=== PATIENT | female | born 1935 | race Caucasian/White ===

== ENCOUNTER → 2017-01-12 | Outpatient (CLI) | payer MEDICARE, BC ==
[2017-01-12 19:47] LABS: MEAN CORPUSCULAR HGB CONC 31.3 g/dl (32.0-36.5); RED CELL DISTRIBUTION WIDTH 17.2 % (11.5-14.5); WHITE BLOOD COUNT 7.7 10^3/uL (4.0-10.0)
[2017-01-12 20:06] LABS: ALBUMIN 3.7 GM/DL (3.2-5.2); ALBUMIN/GLOBULIN RATIO 1.23 (1.00-1.93); BILIRUBIN,TOTAL 0.3 MG/DL (0.2-1.0); CALCIUM LEVEL 9.3 MG/DL (8.8-10.2); CREATININE FOR GFR 1.17 MG/DL (0.55-1.02); GLOMERULAR FILTRATION RATE 47.3 (>32); TOTAL PROTEIN 6.7 GM/DL (6.4-8.2)
[2017-01-12 20:33] LABS: POTASSIUM SERUM 5.5 MEQ/L (3.5-5.1)
== END ==
LOC: M WUC 18:15
PROVIDERS: ATTEND Family Medicine
DX: M06.89 Other specified rheumatoid arthritis, multiple sites (principal)

== ENCOUNTER → 2017-07-08 | Outpatient (CLI) | payer MEDICARE, BC ==
[2017-07-08 17:01] LABS: HEMOGLOBIN 10.9 g/dl (12.0-15.5); MEAN CORPUSCULAR HEMOGLOBIN 29.6 pg (27.0-33.0); MEAN CORPUSCULAR HGB CONC 30.3 g/dl (32.0-36.5); MEAN CORPUSCULAR VOLUME 97.8 fl (80.0-96.0); PLATELET COUNT, AUTOMATED 224 10^3/uL (150-450); RED BLOOD COUNT 3.68 10^6/uL (4.00-5.40); RED CELL DISTRIBUTION WIDTH 17.7 % (11.5-14.5)
[2017-07-08 17:17] LABS: ALBUMIN 3.7 GM/DL (3.2-5.2); ALBUMIN/GLOBULIN RATIO 1.12 (1.00-1.93); ALKALINE PHOSPHATASE 123 U/L (45-117); ALT/SGPT 25 U/L (12-78); ANION GAP 6 MEQ/L (8-16); AST/SGOT 32 U/L (7-37); BILIRUBIN,TOTAL 0.3 MG/DL (0.2-1.0); BLOOD UREA NITROGEN 40 MG/DL (7-18); CALCIUM LEVEL 9.3 MG/DL (8.8-10.2); CARBON DIOXIDE LEVEL 27 MEQ/L (21-32); CHLORIDE LEVEL 110 MEQ/L (98-107); GLOMERULAR FILTRATION RATE 45.9 (>32); GLUCOSE, FASTING 119 MG/DL (70-100); SODIUM LEVEL 143 MEQ/L (136-145)
[2017-07-08 17:24] LABS: POTASSIUM SERUM 5.3 MEQ/L (3.5-5.1)
[2017-07-10 09:51] LABS: TOTAL 25(OH) VITAMIN D 58.7 NG/ML (30.0-100.0)
== END ==
LOC: M WUC 15:03
DX: N18.3 Chronic kidney disease, stage 3 (moderate) (principal)
CPT/HCPCS: 80053

== ENCOUNTER → 2018-01-09 | Outpatient (CLI) | payer MEDICARE, BC ==
[2018-01-09 12:34] LABS: HEMATOCRIT 37.1 % (36.0-47.0); HEMOGLOBIN 11.5 g/dl (12.0-15.5); MEAN CORPUSCULAR HEMOGLOBIN 30.4 pg (27.0-33.0); MEAN CORPUSCULAR VOLUME 98.1 fl (80.0-96.0); PLATELET COUNT, AUTOMATED 297 10^3/uL (150-450); RED BLOOD COUNT 3.78 10^6/uL (4.00-5.40); RED CELL DISTRIBUTION WIDTH 17.1 % (11.5-14.5); RETIC HEMOGLOBIN EQUIVALENT 38.4 pg (24-36); RETICULOCYTE # 35.9 10^9/L (17-77); WHITE BLOOD COUNT 5.9 10^3/uL (4.0-10.0)
[2018-01-09 12:53] LABS: ALBUMIN 3.8 GM/DL (3.2-5.2); ALBUMIN/GLOBULIN RATIO 1.09 (1.00-1.93); ALKALINE PHOSPHATASE 100 U/L (45-117); ALT/SGPT 18 U/L (12-78); ANION GAP 11 MEQ/L (8-16); AST/SGOT 23 U/L (7-37); BILIRUBIN,TOTAL 0.4 MG/DL (0.2-1.0); BLOOD UREA NITROGEN 31 MG/DL (7-18); CALCIUM LEVEL 9.2 MG/DL (8.8-10.2); CARBON DIOXIDE LEVEL 25 MEQ/L (21-32); CHLORIDE LEVEL 104 MEQ/L (98-107); CHOLESTEROL LEVEL 177 MG/DL (<200); CHOLESTEROL RISK RATIO 3.612 (<5); CREATININE FOR GFR 1.03 MG/DL (0.55-1.30); FERRITIN 350 NG/ML (8-252); GLOMERULAR FILTRATION RATE 54.6 (>32); GLUCOSE, FASTING 107 MG/DL (70-100); HDL CHOLESTEROL 49 MG/DL (>40); IRON (FE) 33 UG/DL (50-170); LDL CHOLESTEROL 104 MG/DL (<100); NON-HDL-C 128 MG/DL; PERCENT SATURATION 11.7 % (13.2-45.0); POTASSIUM SERUM 4.8 MEQ/L (3.5-5.1); SODIUM LEVEL 140 MEQ/L (136-145); TOTAL IRON BINDING CAPACITY 283 UG/DL (250-450); TOTAL PROTEIN 7.3 GM/DL (6.4-8.2); TRIGLYCERIDES LEVEL 120 MG/DL (<150)
== END ==
LOC: M WUC 09:11
DX: I10 Essential (primary) hypertension (principal); D63.8 Anemia in other chronic diseases classified elsewhere
CPT/HCPCS: 83550

== ENCOUNTER → 2018-02-23 | Outpatient (CLI) | payer MEDICARE, BC | LOC: M PAIN 13:00 | DX: M79.18 Myalgia, other site (principal); M54.6 Pain in thoracic spine; M47.814 Spondylosis without myelopathy or radiculopathy, thoracic region; T14.8XXA Other injury of unspecified body region, initial encounter; M06.9 Rheumatoid arthritis, unspecified; M81.0 Age-related osteoporosis without current pathological fracture; I10 Essential (primary) hypertension; K21.9 Gastro-esophageal reflux disease without esophagitis; D63.8 Anemia in other chronic diseases classified elsewhere; R73.03 Prediabetes; Z96.643 Presence of artificial hip joint, bilateral; Z96.652 Presence of left artificial knee joint; Z79.1 Long term (current) use of non-steroidal anti-inflammatories (NSAID); Z79.899 Other long term (current) drug therapy; Z88.1 Allergy status to other antibiotic agents; Z88.2 Allergy status to sulfonamides; Z88.8 Allergy status to other drugs, medicaments and biological substances; X58.XXXA Exposure to other specified factors, initial encounter; Y92.9 Unspecified place or not applicable | CPT/HCPCS: G0463 ==

== ENCOUNTER → 2018-03-09 | Outpatient (CLI) | payer MEDICARE, BC ==
[~2018-03-09] MED LIST: BUPIVACAINE HCL 0.25% 30 ML VIAL As Ordered; TRIAMCINOLONE ACETONIDE SUSP 40 MG/ML VIAL (J3301) As Ordered
== END ==
LOC: M PAIN 14:15
DX: M79.18 Myalgia, other site (principal); M54.6 Pain in thoracic spine; I10 Essential (primary) hypertension; K21.9 Gastro-esophageal reflux disease without esophagitis; E55.9 Vitamin D deficiency, unspecified; D64.9 Anemia, unspecified; M81.0 Age-related osteoporosis without current pathological fracture; M06.9 Rheumatoid arthritis, unspecified; Z79.82 Long term (current) use of aspirin; Z79.899 Other long term (current) drug therapy; Z88.2 Allergy status to sulfonamides; Z88.5 Allergy status to narcotic agent; Z88.8 Allergy status to other drugs, medicaments and biological substances; Z96.643 Presence of artificial hip joint, bilateral; Z96.652 Presence of left artificial knee joint
CPT/HCPCS: J3301

== ENCOUNTER → 2018-08-22 | Outpatient (CLI) | payer MEDICARE, BC ==
--- NOTE | 2018-08-22 12:07 | REP ---
Bilateral lower extremity arterial Doppler ultrasound: History: Peripheral vascular disease. Findings: The ankle brachial indices are normal at 0.98 on the right and 1.1 on the left. Extensive atherosclerotic changes are seen in the arteries of the lower extremities bilaterally. Reverse flow is seen in the distal anterior tibial artery on the left implying significant stenosis or occlusion. No other evidence of focal significant stenosis is seen. Velocity chart right lower extremity arteries: CF A 78 cm/S Profunda 59 Proximal SFA 70 Mid SFA 38 Distal SFA 38 Popliteal 39 Proximal AT A 16 Tibioperoneal trunk 29 Proximal CERTIFICATION OFFICER 30 Distal CERTIFICATION OFFICER 14 Distal AT A 31 Velocity chart left lower extremity arteries: CF A 104 cm/S Profunda 68 Proximal SFA 102 Mid SFA 68 Distal SFA 70 Popliteal 49 Proximal AT A 38 Tibioperoneal trunk 24 Proximal CERTIFICATION OFFICER 29 Distal CERTIFICATION OFFICER 37 Distal AT A 41 Electronically Signed by Juwan Medina MD 08/22/2018 11:59 A
== END ==
LOC: M RAD 09:20
PROVIDERS: ATTEND Surgery Vascular Surgery
DX: I73.9 Peripheral vascular disease, unspecified (principal); I87.2 Venous insufficiency (chronic) (peripheral); L89.619 Pressure ulcer of right heel, unspecified stage

== ENCOUNTER → 2018-08-24 | Outpatient (CLI) | payer MEDICARE, BC ==
--- NOTE | 2018-08-25 08:27 | REP ---
REASON: Venous insufficiency. DEEP VENOUS ULTRASONOGRAPHY THIGH, RULE OUT DVT: TECHNIQUE: Multiple ultrasonographic images of the deep venous structures of the thigh were obtained from the common femoral vein to the popliteal vein along with Doppler interrogation and color flow Doppler images. ON THE RIGHT: No reflux was seen in the common femoral vein. The anterior accessory greater saphenous vein was present, however, no reflux was identified. Reflux was seen in the greater saphenous vein at the saphenofemoral junction, the AP dimension of which is 2.3 mm and the duration 6.2 seconds. The greater saphenous vein and mid thigh reflux was noted, the AP dimension of which is 3.2 mm, duration of reflux 6.2 seconds. At the knee, reflux was seen in the greater saphenous vein, the AP dimension is 2.6 mm, duration 7.3 seconds. No reflux was seen in the superficial femoral vein, any of the three components and no reflux was seen in the popliteal vein or lesser saphenous vein, the AP dimension of which is 1.6 mm. ON THE LEFT: No reflux was seen in the common femoral vein. An anterior accessory greater saphenous vein was not present. The greater saphenous vein at the saphenofemoral junction was seen without reflux, the AP dimension of which is 4.1 mm. No reflux was seen in the greater saphenous vein at mid thigh, the AP dimension of which is 3.2 mm. The greater saphenous vein at the knee is seen without reflux, the AP dimension of which is 3.4 mm. No reflux was seen at any one of the three components of the superficial femoral vein. No reflux was seen in the popliteal vein or lesser saphenous vein, the AP dimension of which is 1.2 mm. IMPRESSION: As above. Electronically Signed by Jay Sanchez DO 08/25/2018 08:34 A
== END ==
LOC: M RAD 17:15
PROVIDERS: ATTEND Surgery Vascular Surgery
DX: I73.9 Peripheral vascular disease, unspecified (principal); I87.2 Venous insufficiency (chronic) (peripheral); L89.619 Pressure ulcer of right heel, unspecified stage

== ENCOUNTER → 2019-01-09 | Outpatient (CLI) | payer MEDICARE, BC ==
--- NOTE | 2019-01-11 00:01 | ECWPNPC ---
PATIENT NAME: BIANKA GALLAGHER : 1935 GENDER: FEMALE VISIT DATE: 01/09/2019 DISCHARGE DATE: 01/09/19 1244 VISIT LOCKED DATE TIME: PHYSICIAN: ADAL SHAFFER PHYSICIAN PAGER NO: [phone] RESOURCE: ADAL SHAFFER REASON FOR APPOINTMENT 1. POST TPI HISTORY OF PRESENT ILLNESS HISTORY OF PRESENT ILLNESS: PAIN THE PATIENT DESCRIBES THE PAIN... 83-YEAR-OLD FEMALE IN FOR CHRONIC PAIN FOLLOW-UP. SHE HAD A TPI DONE IN FEBRUARY OF LAST YEAR AND SHE STATES THIS WAS INEFFECTIVE IN RELIEVING HER PAIN. SHE RATES HER PAIN CURRENTLY AT A 9-10 OUT OF 10 WHEN WALKING AND A 0 OUT OF 10 AT REST SHE DESCRIBES THE PAIN ACHING, AND SORE. FALL RISK SCREENING: SCREENING :NO FALLS REPORTED IN THE LAST YEAR CURRENT MEDICATIONS TAKING VITAMIN B COMPLEX 1 TABLET 1 TABLET ORALLY DAILY TAKING VITAMIN D 2000 UNIT TABLET 1 TABLET ORALLY DAILY TAKING ASPIRIN 325 MG TABLET DELAYED RELEASE 1 TABLET EC ORALLY ONCE A DAY TAKING FERROUS GLUCONATE 325 (36 FE) MG TABLET 1 TABLET ORALLY ONCE A DAY TAKING MELOXICAM 15 MG TABLET 1 TABLET ORALLY ONCE A DAY TAKING OMEPRAZOLE 40 MG CAPSULE DELAYED RELEASE 1 CAPSULE ORALLY ONCE A DAY TAKING FOLIC ACID 1000 MG TABLET 1 TABLET ORALLY DAILY TAKING ACCUPRIL 40 MG TABLET TAKE ONE TABLET BY MOUTH EVERY DAY TAKING PERCOCET 5-325 MG TABLET 1 TABLET NEEDED ORALLY EVERY 4 - 6 HOURS NEEDED FOR PAIN MDD = 4 TAKING METHOTREXATE 2.5 MG TABLET 7 TABLETS ORALLY ONCE A WEEK NOT-TAKING LUMBAR BACK BRACE/SUPPORT PAD _ MISCELLANEOUS 733.13 _ DAILY DISCONTINUED METHOTREXATE 2.5 TABLET 7 TABLETS ORALLY ONCE A WEEK, NOTES: DUPLICATE MEDICATION LIST REVIEWED AND RECONCILED WITH THE PATIENT PAST MEDICAL HISTORY RA OSTEOPOROSIS--TOOK FOSAMAX/ACTONEL FOR 10+ YRS, DECLINES FURTHER DEXAS OR TX HYPERTENSION ESOPHAGEAL REFLUX BACK PAIN/DDD L/S SPINE, THORACIC SPINE XRAYS 2011, 2013 VITAMIN D DEFICIENCY + ANTICARDIOLIPIN AB R HUMERUS FX 08/14 KIDNEY STONE DIVERTICULITIS T12 COMPRESSION FX 12/22 BONE SCAN ANEMIA CHRONIC DISEASE--IRON STUDIES DONE 02/24, 01/25 PREDIABETES (01/25) SLIGHT DECREASE BLOOD FLOW IN LOWER EXTREMITIES OPEN WOUND RIGHT HEEL ALLERGIES VANCOMYCIN: PRURITIS - ALLERGY SULFA: DO NOT TAKE WHILE ON METHOTREXATE - CONTRAINDICATION LIDODERM: DIDN'T WORK - LACK OF THERAPEUTIC EFFECT SURGICAL HISTORY NO PERSONAL OR FHX OF SEVERE REACTION TO ANESTHESIA ESWL LEFT KIDNEY 11/21 TOES ON BILATERAL FEET 10/1983 LEFT HIP REPLACEMENT 12/1983 RIGHT HIP REPLACEMENT 05/1984 LEFT KNEE REPLACEMENT 1993 REMOVAL OF INFECTED KNEE REPLACEMENT- LEFT 2002 LEFT KNEE REPLACEMENT 2003 FAMILY HISTORY FATHER: , IN 80 MOTHER: 69 YRS, DIABETES, TYPE II, [place], DIAGNOSED WITH DIABETES, UNSPECIFIED HEART DISEASE SIBLINGS: BROTHER #1 HYPERTENSION, [place] AT 55 BROTHER #2 DM, KIDNEY FAILURE SON(S): SON # 1 DUE TO AUTO ACCIDENT SON # 2 DUE TO COMPLICATIONS OF DM 2 BROTHER(S) . 4 SON(S) , 1 DAUGHTER(S) . NO RA, NO KNOWN FAMILY HISTORY OF ANY UROLOGICALLY RELATED DISEASES\\/CANCERS. \\N2 BROTHERS .\\N2 SONS , 1 CAR ACCIDENT, 1 DIABETES\\NONE SON WITH A BLOOD CLOT IN HIS BRAIN. SOCIAL HISTORY GENERAL: TOBACCO USE ARE YOU A:: NEVER SMOKER. HIV / HEP-C SCREENING HIV TEST OFFERED TO PATIENT:YES DATE OFFERED:01/12/2018 TEST ACCEPTED:NO HEP-C TEST OFFERED TO PATIENT:YES DATE OFFERED:01/12/2018 REASON:PATIENT DECLINED TEST ACCEPTED:NO REASON:PATIENT DECLINED BROCHURE PROVIDED TO PATIENTYES OTHERS AT HOME: NONE. EDUCATION LEVEL OF EDUCATION:FINISHED HIGH SCHOOL DIET: REGULAR. LANGUAGE LANGUAGES SPOKEN:SURINAMESE DOMESTIC VIOLENCE DO YOU FEEL SAFE IN YOUR ENVIRONMENT?YES RECREATIONAL DRUG USE DRUG USE?NO EXERCISE: NO REGULAR EXERCISE. 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 NEEDED?NO PAIN CLINIC PFS, CLERGY, PUBLIC HEALTH REFERRALS HAS THE PATIENT BEEN EDUCATED REGARDING HIS/HER PLAN OF CARE?YES HAS THE PATIENT BEEN EDUCATED REGARDING PAIN, THE RISK FOR PAIN, THE IMPORTANCE OF EFFECTIVE PAIN MANAGEMENT, AND THE PAIN ASSESSMENT PROCESS?YES LATEX QUESTIONNAIRE LATEX ALLERGY : HAVE YOU EVER DEVELOPED ANY TYPE OF REACTION AFTER HANDLING LATEX PRODUCTS SUCH RUBBER GLOVES, CONDOMS, DIAPHRAGMS, BALLOONS, SOCKS, OR UNDERWEAR?NO LATEX ALLERGY : HAVE YOU EVER DEVELOPED ANY TYPE OF REACTION DURING OR AFTER DENTAL APPOINTMENT, VAGINAL/RECTAL EXAMINATION, SURGICAL PROCEDURE, OR ANY OTHER EXPOSURE?NO LATEX RISK : HAVE YOU EVER HAD ANY DIFFICULTY BREATHING OR HIVES AFTER EATING OR HANDLING ANY FRUITS, OR VEGETABLES; SUCH KIWI, BANANAS, STONE FRUITS, OR CHESTNUTSNO LATEX RISK : DO YOU HAVE A PREVIOUS PERSONAL HISTORY OF MORE THAN NINE SURGERIES, SPINA BIFIDA, OR REPEATED CATHERIZATIONS? YES - PLEASE INDICATE : > 9 SURGERIES LATEX RISK : ARE YOU FREQUENTLY EXPOSED TO LATEX PRODUCTS IN YOUR OCCUPATION?NO DATE ASKED : 01/09/2019 CAFFEINE CAFFEINE USE?YES HOW OFTEN AND HOW MUCH? OCC ADVANCE DIRECTIVE ADVANCE DIRECTIVE DISCUSSED WITH PATIENT:YES 01/09/19PT HAS NO ADVANCED DIRECTIVES, DECLINED HCP INFORMATION OR ASSISTANCE IN FILLING HCP OUT AD [place] NO AMISH BELIEFS THAT WOULD IMPACT HEALTH CARE. MARITAL STATUS: . ALCOHOL SCREENING POINTS: 0, INTERPRETATION: NEGATIVE. OCCUPATION: RETIRED. SEXUAL HX HAD SEX IN THE LAST 12 MONTHS (VAGINAL, ORAL, OR ANAL)?NO HAVE YOU EVER HAD AN STD?NO REVIEWED WITH PATIENT 02/23/18 1338 JSREVIEWED WITH PATIENT 03/09/18 1437 LAS. HOSPITALIZATION/MAJOR DIAGNOSTIC PROCEDURE SURGERY RELATED CHILD REVIEW OF SYSTEMS REVIEWED BY: PROVIDER: RICARDO CAMPA . CONSTITUTIONAL: ANY CHANGE IN YOUR MEDICAL CONDITION? NO . CHILLS NO . FEVER NO . INFECTION: DO YOU HAVE NEW INFECTIONS? NO . DO YOU HAVE HISTORY OF MRSA? NO . MUSCULOSKELETAL: ANY NEW PATTERNS OF PAIN OR NUMBNESS? NO . GASTROENTEROLOGY: ANY NEW CHANGE IN BOWEL CONTROL? NO . GENITOURINARY: ANY NEW CHANGE IN BLADDER CONTROL? NO . IS THERE A CHANCE YOU COULD BE ? NO . HEMATOLOGY/LYMPH: DO YOU TAKE ANY BLOOD THINNERS? (FOR EXAMPLE- COUMADIN, PLAVIX, AGGRENOX, PLATEL, PRADAXA, OR XARELTO) NO . WHEN WAS YOUR LAST DOSE? DATE: TIME: . NEUROLOGY: HAVE YOU FALLEN IN THE PAST 12 MONTHS? NO . ANY NEW EXTREMITY NUMBNESS OR WEAKNESS? NO . CARDIOLOGY: DO YOU HAVE A PACEMAKER OR DEFIBRILLATOR? NO . RESPIRATORY: HAVE YOU BEEN SICK IN THE PAST WEEK? NO . FEVER NO . FLU LIKE SYMPTOMS? NO . COUGH NO . INTEGUMENTARY: DO YOU HAVE ANY RASHES OR OPEN SORES? NO . ALLERGIC/IMMUNO: ARE YOU ALLERGIC TO IV DYE? NO . ANY NEW ALLERGIES? NO . PSYCHIATRIC: DO YOU HAVE THOUGHTS OF HURTING YOURSELF OR SOMEONE ELSE? NO . ARE YOU ABUSED, NEGLECTED, OR IN AN UNSAFE ENVIRONMENT? NO . ENDOCRINOLOGY: ARE YOU DIABETIC? NO . OTHER: DO YOU NEED ANY PRESCRIPTIONS? NO . IF YES, PLEASE LIST: ____ . ANY NEW PROBLEMS WITH YOUR MEDICATIONS? NO . WHEN DID YOU LAST EAT? ____ . WHEN DID YOU LAST DRINK? ____ . WHAT DID YOU LAST DRINK? ____ . NAME OF PERSON DRIVING YOU HOME? ____ . DO YOU HAVE ANY OTHER QUESTIONS OR CONCERNS YES, "DOES MY BACK PAIN HAVE ANYTHING TO DO WITH MY KIDNEYS?" . VITAL SIGNS WT 90.6 LBS, HT 59 IN, BMI 18.30 INDEX, BP 157/98 MM HG, REPEAT BP 136/67 MM HG, HR 91 /MIN, RR 16 /MIN, TEMP 98.0 F, OXYGEN SAT % 99%, SAFE IN ENV? (Y/N) Y, NA INITIALS SC 12:01, REVIEWED BY: OMAR. EXAMINATION GENERAL EXAMINATION: GENERALNO ACUTE DISTRESS, WELL NOURISHED AND HYDRATED. PSYCHAPPROPRIATE MOOD AND AFFECT . LUNGS:CLEAR TO AUSCULTATION BILATERALLY, NO WHEEZES, RHONCHI, RALES. HEART:NO MURMURS, REGULAR RATE AND RHYTHM. 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 GIVEN PRESENTING SYMPTOMS AND RESULTS OF PHYSICAL EXAMINATION RECOMMENDED GETTING AN UPDATED IMAGING STUDY AND HAVING PATIENT FOLLOW UP AFTER STUDY. PATIENT HAS EXPRESSED UNDERSTANDING OF AND WAS IN AGREEMENT WITH TREATMENT PLAN. GIVEN TIME TO ASK QUESTIONS AND EXPRESS CONCERNS. PROCEDURE CODES FA211 ESTABILISHED PATIENT [facility] FAC[facility] CHARGE DISPOSITION & COMMUNICATION FOLLOW UP AFTER IMAGING (REASON: MRI) ELECTRONICALLY SIGNED BY BERRY SOLIZ ON 01/10/2019 AT 09:16 AM EDT DISCLAIMER : THIS IS A VISIT SUMMARY EXTRACTED FROM THE [employer] CHART. IT IS NOT A COPY OF THE [employer] PROGRESS NOTE. HALEY
== END ==
LOC: M PAIN 11:15
PROVIDERS: ATTEND Family Medicine
DX: M47.814 Spondylosis without myelopathy or radiculopathy, thoracic region (principal); G89.29 Other chronic pain; M06.9 Rheumatoid arthritis, unspecified; I10 Essential (primary) hypertension; K21.9 Gastro-esophageal reflux disease without esophagitis; E55.9 Vitamin D deficiency, unspecified; D50.9 Iron deficiency anemia, unspecified; Z96.643 Presence of artificial hip joint, bilateral; Z96.652 Presence of left artificial knee joint; Z88.1 Allergy status to other antibiotic agents; Z88.2 Allergy status to sulfonamides; Z88.8 Allergy status to other drugs, medicaments and biological substances; Z79.82 Long term (current) use of aspirin; Z79.899 Other long term (current) drug therapy

== ENCOUNTER → 2019-01-14 | Outpatient (CLI) | payer MEDICARE, BC ==
--- NOTE | 2019-01-15 08:38 | REP ---
MRI thoracic spine without contrast: History: Right-sided thoracic spine pain. History rheumatoid arthritis longstanding. Facet arthropathy. Comparison thoracic spine radiographs February 07, 2014. Technique: Sagittal and axial T1 and T2-weighted scans are acquired in the usual fashion with and without fat saturation. Sequences include spin echo, turbo spin-echo, and STIR imaging sequences. MRI findings: There are multiple osteoporotic wedge compression fracture deformities which all appear old by virtue of normal STIR T1 and T2 signal intensity. These include wedge-shaped compression deformities at T10, T12, L1, and L2. There is minimal wedging at T9. Thoracic kyphosis is somewhat exaggerated. No acute fracture is appreciated. At T12, there is approximately 50% loss of anterior vertebral body height. There is mild retropulsion of the posterior cortex superiorly at the T12 vertebral body. This it is approximately 4 mm and effaces the ventral subarachnoid space. There is slight dorsal displacement of the lower thoracic cord here due to the retropulsion and some associated diffuse disc bulging. There is facet hypertrophy bilaterally at T11-12 and some associated ligamentum flavum hypertrophy effaces the subarachnoid space from the dorsal lateral aspect producing central canal stenosis at the T11-12 level. There is similar less pronounced findings at the T10-11 with diffuse disc bulging and facet and ligamentum flavum hypertrophy. There is diffuse disc bulging at T12-L1 as well without cord compression. At L1-L2, there is marked facet hypertrophy on the left at L1-2 which encroaches on the spinal canal from the left lateral aspect. No intramedullary lesion is seen. The tip of the conus medullaris is at this level. There is left foraminal narrowing at the L1-L2 and T12-L1 levels. There is no evidence of epidural fluid collection. There are several other small of thoracic focal disc protrusions including a right posterior protrusion at T9-10, a right paracentral T8-9 focal disc protrusion, and a small left posterior focal disc protrusion at T6-7. Impression: Advanced degenerative spondylosis changes with areas of facet hypertrophy and foraminal narrowing. Osteoporotic wedge compression deformities at multiple levels as above. Central canal stenosis is seen due to these factors at T11-12. There is diffuse disc bulging at multiple disc levels as well. Electronically Signed by Juwan Medina MD 01/15/2019 09:27 A
== END ==
LOC: M RAD 18:24
PROVIDERS: ATTEND Family Medicine
DX: M47.814 Spondylosis without myelopathy or radiculopathy, thoracic region (principal)

== ENCOUNTER → 2019-01-23 | Outpatient (CLI) | payer MEDICARE, BC ==
--- NOTE | 2019-01-28 13:17 | ECWPNPC ---
PATIENT NAME: BIANKA GALLAGHER : 1935 GENDER: FEMALE VISIT DATE: 01/23/2019 DISCHARGE DATE: 01/23/19 1156 VISIT LOCKED DATE TIME: PHYSICIAN: ADAL SHAFFER PHYSICIAN PAGER NO: [phone] RESOURCE: ADAL SHAFFER REASON FOR APPOINTMENT 1. REVIEW MRI HISTORY OF PRESENT ILLNESS HISTORY OF PRESENT ILLNESS: PAIN THE PATIENT DESCRIBES THE PAIN... 83-YEAR-OLD FEMALE IN FOR CHRONIC PAIN AND POST MRI FOLLOW-UP. SHE ADMITS TO PAIN ONLY WHEN WALKING AND DESCRIBES HER PAIN ACHING. FALL RISK SCREENING: SCREENING :NO FALLS REPORTED IN THE LAST YEAR CURRENT MEDICATIONS TAKING VITAMIN B COMPLEX 1 TABLET 1 TABLET ORALLY DAILY TAKING VITAMIN D 2000 UNIT TABLET 1 TABLET ORALLY DAILY TAKING ASPIRIN 325 MG TABLET DELAYED RELEASE 1 TABLET EC ORALLY ONCE A DAY TAKING MELOXICAM 15 MG TABLET 1 TABLET ORALLY ONCE A DAY TAKING OMEPRAZOLE 40 MG CAPSULE DELAYED RELEASE 1 CAPSULE ORALLY ONCE A DAY TAKING FOLIC ACID 1000 MG TABLET 1 TABLET ORALLY DAILY TAKING ACCUPRIL 40 MG TABLET TAKE ONE TABLET BY MOUTH EVERY DAY TAKING METHOTREXATE 2.5 MG TABLET 7 TABLETS ORALLY ONCE A WEEK TAKING PERCOCET 5-325 MG TABLET 1 TABLET NEEDED ORALLY EVERY 4 - 6 HOURS NEEDED FOR PAIN MDD = 4 TAKING FERROUS SULFATE 325 MG CAPSULE DIRECTED ORALLY NOT-TAKING LUMBAR BACK BRACE/SUPPORT PAD _ MISCELLANEOUS 733.13 _ DAILY MEDICATION LIST REVIEWED AND RECONCILED WITH THE PATIENT PAST MEDICAL HISTORY RA OSTEOPOROSIS--TOOK FOSAMAX/ACTONEL FOR 10+ YRS, DECLINES FURTHER DEXAS OR TX HYPERTENSION ESOPHAGEAL REFLUX BACK PAIN/DDD L/S SPINE, THORACIC SPINE XRAYS 2011, 2013 VITAMIN D DEFICIENCY + ANTICARDIOLIPIN AB R HUMERUS FX 08/14 KIDNEY STONE DIVERTICULITIS T12 COMPRESSION FX 12/22 BONE SCAN ANEMIA CHRONIC DISEASE--IRON STUDIES DONE 02/24, 01/25 PREDIABETES (01/25) SLIGHT DECREASE BLOOD FLOW IN LOWER EXTREMITIES OPEN WOUND RIGHT HEEL ALLERGIES VANCOMYCIN: PRURITIS - ALLERGY SULFA: DO NOT TAKE WHILE ON METHOTREXATE - CONTRAINDICATION LIDODERM: DIDN'T WORK - LACK OF THERAPEUTIC EFFECT SURGICAL HISTORY NO PERSONAL OR FHX OF SEVERE REACTION TO ANESTHESIA ESWL LEFT KIDNEY 11/21 TOES ON BILATERAL FEET 10/1983 LEFT HIP REPLACEMENT 12/1983 RIGHT HIP REPLACEMENT 05/1984 LEFT KNEE REPLACEMENT 1993 REMOVAL OF INFECTED KNEE REPLACEMENT- LEFT 2002 LEFT KNEE REPLACEMENT 2003 FAMILY HISTORY FATHER: , IN 80 MOTHER: 69 YRS, DIABETES, TYPE II, [place], DIAGNOSED WITH DIABETES, UNSPECIFIED HEART DISEASE SIBLINGS: BROTHER #1 HYPERTENSION, [place] AT 55 BROTHER #2 DM, KIDNEY FAILURE SON(S): SON # 1 DUE TO AUTO ACCIDENT SON # 2 DUE TO COMPLICATIONS OF DM 2 BROTHER(S) . 4 SON(S) , 1 DAUGHTER(S) . NO RA, NO KNOWN FAMILY HISTORY OF ANY UROLOGICALLY RELATED DISEASES\/CANCERS. \N2 BROTHERS .\N2 SONS , 1 CAR ACCIDENT, 1 DIABETES\NONE SON WITH A BLOOD CLOT IN HIS BRAIN. SOCIAL HISTORY GENERAL: TOBACCO USE ARE YOU A:: NEVER SMOKER. HIV / HEP-C SCREENING HIV TEST OFFERED TO PATIENT:YES DATE OFFERED:01/12/2018 TEST ACCEPTED:NO HEP-C TEST OFFERED TO PATIENT:YES DATE OFFERED:01/12/2018 REASON:PATIENT DECLINED TEST ACCEPTED:NO REASON:PATIENT DECLINED BROCHURE PROVIDED TO PATIENTYES OTHERS AT HOME: NONE. EDUCATION LEVEL OF EDUCATION:FINISHED HIGH SCHOOL DIET: REGULAR. LANGUAGE LANGUAGES SPOKEN:VIETNAMESE DOMESTIC VIOLENCE DO YOU FEEL SAFE IN YOUR ENVIRONMENT?YES RECREATIONAL DRUG USE DRUG USE?NO EXERCISE: NO REGULAR EXERCISE. 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?NO PAIN CLINIC PFS, CLERGY, PUBLIC HEALTH REFERRALS HAS THE PATIENT BEEN EDUCATED REGARDING HIS/HER PLAN OF CARE?YES HAS THE PATIENT BEEN EDUCATED REGARDING PAIN, THE RISK FOR PAIN, THE IMPORTANCE OF EFFECTIVE PAIN MANAGEMENT, AND THE PAIN ASSESSMENT PROCESS?YES LATEX QUESTIONNAIRE LATEX ALLERGY : HAVE YOU EVER DEVELOPED ANY TYPE OF REACTION AFTER HANDLING LATEX PRODUCTS SUCH RUBBER GLOVES, CONDOMS, DIAPHRAGMS, BALLOONS, SOCKS, OR UNDERWEAR?NO LATEX ALLERGY : HAVE YOU EVER DEVELOPED ANY TYPE OF REACTION DURING OR AFTER DENTAL APPOINTMENT, VAGINAL/RECTAL EXAMINATION, SURGICAL PROCEDURE, OR ANY OTHER EXPOSURE?NO DATE ASKED : 01/09/2019 LATEX RISK : HAVE YOU EVER HAD ANY DIFFICULTY BREATHING OR HIVES AFTER EATING OR HANDLING ANY FRUITS, OR VEGETABLES; SUCH KIWI, BANANAS, STONE FRUITS, OR CHESTNUTSNO LATEX RISK : DO YOU HAVE A PREVIOUS PERSONAL HISTORY OF MORE THAN NINE SURGERIES, SPINA BIFIDA, OR REPEATED CATHERIZATIONS? YES - PLEASE INDICATE : > 9 SURGERIES LATEX RISK : ARE YOU FREQUENTLY EXPOSED TO LATEX PRODUCTS IN YOUR OCCUPATION?NO CAFFEINE CAFFEINE USE?YES HOW OFTEN AND HOW MUCH? OCC ADVANCE DIRECTIVE ADVANCE DIRECTIVE DISCUSSED WITH PATIENT:YES 01/09/19PT HAS NO ADVANCED DIRECTIVES, DECLINED HCP INFORMATION OR ASSISTANCE IN FILLING HCP OUT AD [place] NO MOSQUE BELIEFS THAT WOULD IMPACT HEALTH CARE. MARITAL STATUS: . ALCOHOL SCREENING POINTS: 0, INTERPRETATION: NEGATIVE. OCCUPATION: RETIRED. SEXUAL HX HAD SEX IN THE LAST 12 MONTHS (VAGINAL, ORAL, OR ANAL)?NO HAVE YOU EVER HAD AN STD?NO REVIEWED WITH PATIENT 02/23/18 1338 JSREVIEWED WITH PATIENT 03/09/18 1437 LASREVIEWED WITH PATIENT 01/23/19 1106 NLJ. HOSPITALIZATION/MAJOR DIAGNOSTIC PROCEDURE SURGERY RELATED CHILD REVIEW OF SYSTEMS REVIEWED BY: PROVIDER: RICARDO SMART-C . CONSTITUTIONAL: ANY CHANGE IN YOUR MEDICAL CONDITION? NO . CHILLS NO . FEVER NO . INFECTION: DO YOU HAVE NEW INFECTIONS? NO . DO YOU HAVE HISTORY OF MRSA? NO . MUSCULOSKELETAL: ANY NEW PATTERNS OF PAIN OR NUMBNESS? NO- STATES THAT WHEN SHE IS SITTING SHE HAS NO PAIN, STATES IT INCREASES WHEN SHE STANDS UP AND WALKS AROUND . GASTROENTEROLOGY: ANY NEW CHANGE IN BOWEL CONTROL? NO . GENITOURINARY: ANY NEW CHANGE IN BLADDER CONTROL? NO . IS THERE A CHANCE YOU COULD BE ? NO . HEMATOLOGY/LYMPH: DO YOU TAKE ANY BLOOD THINNERS? (FOR EXAMPLE- COUMADIN, PLAVIX, AGGRENOX, PLATEL, PRADAXA, OR XARELTO) YES- ASPIRIN . WHEN WAS YOUR LAST DOSE? DATE:01/23/19 TIME: AM . NEUROLOGY: HAVE YOU FALLEN IN THE PAST 12 MONTHS? NO . ANY NEW EXTREMITY NUMBNESS OR WEAKNESS? NO . CARDIOLOGY: DO YOU HAVE A PACEMAKER OR DEFIBRILLATOR? NO . RESPIRATORY: HAVE YOU BEEN SICK IN THE PAST WEEK? NO . FEVER NO . FLU LIKE SYMPTOMS? NO . COUGH NO . INTEGUMENTARY: DO YOU HAVE ANY RASHES OR OPEN SORES? NO . ALLERGIC/IMMUNO: ARE YOU ALLERGIC TO IV DYE? NO . ANY NEW ALLERGIES? NO . PSYCHIATRIC: DO YOU HAVE THOUGHTS OF HURTING YOURSELF OR SOMEONE ELSE? NO . ARE YOU ABUSED, NEGLECTED, OR IN AN UNSAFE ENVIRONMENT? NO . ENDOCRINOLOGY: ARE YOU DIABETIC? NO . OTHER: DO YOU NEED ANY PRESCRIPTIONS? YES . IF YES, PLEASE LIST: ____OXYCODONE . ANY NEW PROBLEMS WITH YOUR MEDICATIONS? NO . WHEN DID YOU LAST EAT? ____ . WHEN DID YOU LAST DRINK? ____ . WHAT DID YOU LAST DRINK? ____ . NAME OF PERSON DRIVING YOU HOME? ____ . DO YOU HAVE ANY OTHER QUESTIONS OR CONCERNS NO . VITAL SIGNS WT 91.8 LBS, HT 59 IN, BMI 18.54 INDEX, BP 137/64 MM HG, HR 91 /MIN, RR 16 /MIN, TEMP 98.1 F, OXYGEN SAT % 100%, SAFE IN ENV? (Y/N) YES, NA INITIALS AW 1113, REVIEWED BY: OUMAR. EXAMINATION GENERAL EXAMINATION: GENERALNO ACUTE DISTRESS, WELL NOURISHED AND HYDRATED. PSYCHAPPROPRIATE MOOD AND AFFECT . LUNGS:CLEAR TO AUSCULTATION BILATERALLY, NO WHEEZES, RHONCHI, RALES. HEART:NO MURMURS, REGULAR RATE AND RHYTHM. BACK:POINT TENDER LUMBAR SPINE, SURROUNDING SKIN SHOWS NO ERYTHEMA, ECCHYMOSIS, INCREASED WARMTH, AND/OR SKIN ERUPTIONS NOTED. . 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 CLINICAL NOTES: 83-YEAR-OLD FEMALE IN FOR CHRONIC PAIN FOLLOW-UP. GIVEN PRESENTING SYMPTOMS, RESULTS OF PHYSICAL EXAMINATION, AND RESULTS OF MRI RECOMMENDED THERAPEUTIC FACET BLOCK T11-T12 T12-L1 WITH POSTPROCEDURAL FOLLOW-UP. PATIENT HAS EXPRESSED UNDERSTANDING OF AND WAS IN AGREEMENT WITH TREATMENT PLAN. GIVEN TIME TO ASK QUESTIONS AND EXPRESS CONCERNS. OTHERS NOTES: FACET JOINT INJECTION MATERIAL WAS PRINTED AND REVIEWED WITH PATIENT 01/23/19 1145 OUMAR. PROCEDURE CODES FA211 ESTABILISHED PATIENT [facility] FACILITY CHARGE DISPOSITION & COMMUNICATION FOLLOW UP POST PROCEDURE (REASON: THERAPEUTIC THORACIC FACET BLOCK T11-T12 T12-L1) ELECTRONICALLY SIGNED BY BERRY SOLIZ ON 01/24/2019 AT 09:53 AM EDT DISCLAIMER : THIS IS A VISIT SUMMARY EXTRACTED FROM THE [employer] CHART. IT IS NOT A COPY OF THE [employer] PROGRESS NOTE. MTDD
== END ==
LOC: M PAIN 11:00
PROVIDERS: ATTEND Family Medicine
DX: M47.814 Spondylosis without myelopathy or radiculopathy, thoracic region (principal); G89.29 Other chronic pain; M06.9 Rheumatoid arthritis, unspecified; M81.0 Age-related osteoporosis without current pathological fracture; I10 Essential (primary) hypertension; K21.9 Gastro-esophageal reflux disease without esophagitis; E55.9 Vitamin D deficiency, unspecified; D50.9 Iron deficiency anemia, unspecified; R73.03 Prediabetes; Z96.643 Presence of artificial hip joint, bilateral; Z96.652 Presence of left artificial knee joint; Z88.1 Allergy status to other antibiotic agents; Z88.2 Allergy status to sulfonamides; Z88.4 Allergy status to anesthetic agent; Z79.82 Long term (current) use of aspirin; Z79.899 Other long term (current) drug therapy

== ENCOUNTER → 2019-02-03 | Outpatient (CLI) | payer MEDICARE, BC ==
[2019-02-03 17:36] LABS: BASO % 0.4 % (0.0-1.0); EOS # 0.1 10^3/uL (0.0-0.5); EOS % 1.9 % (0.0-3.0); HEMATOCRIT 39.5 % (36.0-47.0); LYMPH # 0.8 10^3/uL (1.5-5.0); LYMPH % 10.1 % (24.0-44.0); MEAN CORPUSCULAR HEMOGLOBIN 31.3 pg (27.0-33.0); MEAN CORPUSCULAR HGB CONC 30.4 g/dl (32.0-36.5); MEAN CORPUSCULAR VOLUME 102.9 fl (80.0-96.0); MONO # 0.4 10^3/uL (0.0-0.8); MONO % 5.9 % (0.0-5.0); NEUTROPHILS # 6.1 10^3/uL (1.5-8.5); NEUTROPHILS % 81.4 % (36.0-66.0); PLATELET COUNT, AUTOMATED 332 10^3/uL (150-450); RED BLOOD COUNT 3.84 10^6/uL (4.00-5.40); WHITE BLOOD COUNT 7.5 10^3/uL (4.0-10.0)
[2019-02-03 17:50] LABS: ALBUMIN 3.9 GM/DL (3.2-5.2); BILIRUBIN,TOTAL 0.4 MG/DL (0.2-1.0); CALCIUM LEVEL 9.5 MG/DL (8.8-10.2); CHOLESTEROL RISK RATIO 2.885 (<5); CREATININE FOR GFR 1.09 MG/DL (0.55-1.30); FREE T4 0.95 NG/DL (0.76-1.46); POTASSIUM SERUM 4.6 MEQ/L (3.5-5.1); THYROID STIMULATING HORMONE 8.62 uIU/ML (0.358-3.740); TOTAL PROTEIN 7.4 GM/DL (6.4-8.2)
== END ==
LOC: M WUC 10:40
PROVIDERS: ATTEND Family Medicine
DX: N18.3 Chronic kidney disease, stage 3 (moderate) (principal); D63.1 Anemia in chronic kidney disease; I12.9 Hypertensive chronic kidney disease with stage 1 through stage 4 chronic kidney disease, or unspecified chronic kidney disease; E78.5 Hyperlipidemia, unspecified

== ENCOUNTER → 2019-02-21 | Outpatient (CLI) | payer MEDICARE, BC ==
[~2019-02-21] MED LIST changes: -BUPIVACAINE HCL 0.25% 30 ML VIAL As Ordered; +BUPIVACAINE HCL 0.25% 30 ML VIAL As Ordered ONE; +ISOVUE-M 300 61% 15ML VIAL (Q9967) As Ordered ONE; +LIDOCAINE 1% SDV INJ 30 ML VIAL As Ordered ONE; -TRIAMCINOLONE ACETONIDE SUSP 40 MG/ML VIAL (J3301) As Ordered; +TRIAMCINOLONE ACETONIDE SUSP 40 MG/ML VIAL (J3301) As Ordered ONE
--- NOTE | 2019-02-21 16:03 | REP ---
Thoracic spine: Single view. History: Right thoracic facet injections for pain. 14 seconds fluoroscopy time is reported. Findings: A single last image hold fluoroscopically obtained spot radiograph of the thoracic spine documents various needle positions and contrast injections associated with injection procedure. Electronically Signed by Juwan Medina MD 02/21/2019 03:53 P
--- NOTE | 2019-02-21 16:30 | REP ---
Chest x-ray: Three views including inspiration expiration PA views and a lateral view. History: Status post thoracic facet block procedure. Findings: Inspiration and expiration views show no evidence of pneumothorax. No hydrothorax is seen. There is a dextroconvex lower thoracic curve unchanged. Heart size is unchanged. Thoracic aorta is tortuous and calcific. There are degenerative disc changes in the thoracic spine and osteoporotic wedge compression deformities are seen in the lower thoracic spine and upper lumbar spine. These appear to be unchanged from November 07, 2013. Impression: No pneumothorax or hydrothorax seen. Scoliosis and thoracic wedge compression deformities. Electronically Signed by Juwan Medina MD 02/21/2019 05:24 P
--- NOTE | 2019-03-01 00:56 | ECWPNPC ---
PATIENT NAME: BIANKA GALLAGHER : 1935 GENDER: FEMALE VISIT DATE: 02/21/2019 DISCHARGE DATE: 02/21/191648 VISIT LOCKED DATE TIME: PHYSICIAN: AURELIANO FIELDS MD PHYSICIAN PAGER NO: [phone] RESOURCE: AURELIANO FIELDS MD REASON FOR APPOINTMENT 1. RIGHT THERAPEUTIC THORACIC FACET BLOCK HISTORY OF PRESENT ILLNESS HISTORY OF PRESENT ILLNESS: PAIN THE PATIENT DESCRIBES THE PAIN... FALL RISK SCREENING: SCREENING :NO FALLS REPORTED IN THE LAST YEAR CURRENT MEDICATIONS TAKING VITAMIN B COMPLEX 1 TABLET 1 TABLET ORALLY DAILY, NOTES: 02-20-19 TAKING VITAMIN D 2000 UNIT TABLET 1 TABLET ORALLY DAILY, NOTES: 02-20-19 1100 TAKING ASPIRIN 325 MG TABLET DELAYED RELEASE 1 TABLET EC ORALLY ONCE A DAY, NOTES: 02-21-19 08 TAKING MELOXICAM 15 MG TABLET 1 TABLET ORALLY ONCE A DAY, NOTES: 02-21-19799 TAKING OMEPRAZOLE 40 MG CAPSULE DELAYED RELEASE 1 CAPSULE ORALLY ONCE A DAY, NOTES: 02-21-19899 TAKING FOLIC ACID 1000 MG TABLET 1 TABLET ORALLY DAILY, NOTES: 02-20-19799 TAKING ACCUPRIL 40 MG TABLET TAKE ONE TABLET BY MOUTH EVERY DAY , NOTES: 02-21-19799 TAKING METHOTREXATE 2.5 MG TABLET 7 TABLETS ORALLY ONCE A WEEK, NOTES: 2 WEEKS AGO TAKING FERROUS SULFATE 325 MG CAPSULE DIRECTED ORALLY , NOTES: 02-20-19799 TAKING LEVOTHYROXINE SODIUM 25 MCG TABLET 1 TABLET IN THE MORNING ON AN EMPTY STOMACH ORALLY ONCE A DAY, NOTES: 02-21-19799 TAKING PERCOCET 5-325 MG TABLET 1 TABLET NEEDED ORALLY EVERY 4 - 6 HOURS NEEDED FOR PAIN MDD = 4, NOTES: 02-20-19 09 NOT-TAKING LUMBAR BACK BRACE/SUPPORT PAD _ MISCELLANEOUS 733.13 _ DAILY MEDICATION LIST REVIEWED AND RECONCILED WITH THE PATIENT PAST MEDICAL HISTORY RA OSTEOPOROSIS--TOOK FOSAMAX/ACTONEL FOR 10+ YRS, DECLINES FURTHER DEXAS OR TX HYPERTENSION ESOPHAGEAL REFLUX BACK PAIN/DDD L/S SPINE, THORACIC SPINE XRAYS 2011, 2013 VITAMIN D DEFICIENCY + ANTICARDIOLIPIN AB R HUMERUS FX 08/14 KIDNEY STONE DIVERTICULITIS T12 COMPRESSION FX 12/22 BONE SCAN ANEMIA CHRONIC DISEASE--IRON STUDIES DONE 02/24, 01/25 PREDIABETES (01/25) PAD MILD HYPOTHYROIDISM ALLERGIES VANCOMYCIN: PRURITIS - ALLERGY SULFA: DO NOT TAKE WHILE ON METHOTREXATE - CONTRAINDICATION LIDODERM: DIDN'T WORK - LACK OF THERAPEUTIC EFFECT VANCOMYCIN HCL: PRURITITS - ALLERGY SULFA (FOR ALLERGY USE ONLY): DO NOT TAKE WHILE ON METHOTREXATE - CONTRAINDICATION LIDODERM: DID NOT WORK - LACK OF THERAPEUTIC EFFECT - ONSET DATE 02/21/2019 SURGICAL HISTORY NO PERSONAL OR FHX OF SEVERE REACTION TO ANESTHESIA ESWL LEFT KIDNEY 11/21 TOES ON BILATERAL FEET 10/1983 LEFT HIP REPLACEMENT 12/1983 RIGHT HIP REPLACEMENT 05/1984 LEFT KNEE REPLACEMENT 1993 REMOVAL OF INFECTED KNEE REPLACEMENT- LEFT 2002 LEFT KNEE REPLACEMENT 2003 FAMILY HISTORY FATHER: , IN 80 MOTHER: 69 YRS, DIABETES, TYPE II, [place], DIAGNOSED WITH DIABETES, UNSPECIFIED HEART DISEASE SIBLINGS: BROTHER #1 HYPERTENSION, [place] AT 55 BROTHER #2 DM, KIDNEY FAILURE SON(S): SON # 1 DUE TO AUTO ACCIDENT SON # 2 DUE TO COMPLICATIONS OF DM DAUGHTER(S): HYPOTHYROIDISM 2 BROTHER(S) . 4 SON(S) , 1 DAUGHTER(S) . NO RA, NO KNOWN FAMILY HISTORY OF ANY UROLOGICALLY RELATED DISEASES\/CANCERS. \N2 BROTHERS .\N2 SONS , 1 CAR ACCIDENT, 1 DIABETES\NONE SON WITH A BLOOD CLOT IN HIS BRAIN. SOCIAL HISTORY GENERAL: TOBACCO USE ARE YOU A:: NEVER SMOKER. HIV / HEP-C SCREENING HIV TEST OFFERED TO PATIENT:YES DATE OFFERED:01/12/2018 TEST ACCEPTED:NO HEP-C TEST OFFERED TO PATIENT:YES DATE OFFERED:01/12/2018 REASON:PATIENT DECLINED TEST ACCEPTED:NO REASON:PATIENT DECLINED BROCHURE PROVIDED TO PATIENTYES OTHERS AT HOME: NONE. EDUCATION LEVEL OF EDUCATION:FINISHED HIGH SCHOOL DIET: REGULAR. LANGUAGE LANGUAGES SPOKEN:[place]ISTANI DOMESTIC VIOLENCE DO YOU FEEL SAFE IN YOUR ENVIRONMENT?YES RECREATIONAL DRUG USE DRUG USE?NO EXERCISE: NO REGULAR EXERCISE. 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 CLINIC PFS, CLERGY, PUBLIC HEALTH REFERRALS HAS THE PATIENT BEEN EDUCATED REGARDING HIS/HER PLAN OF CARE?YES HAS THE PATIENT BEEN EDUCATED REGARDING PAIN, THE RISK FOR PAIN, THE IMPORTANCE OF EFFECTIVE PAIN MANAGEMENT, AND THE PAIN ASSESSMENT PROCESS?YES LATEX QUESTIONNAIRE LATEX ALLERGY : HAVE YOU EVER DEVELOPED ANY TYPE OF REACTION AFTER HANDLING LATEX PRODUCTS SUCH RUBBER GLOVES, CONDOMS, DIAPHRAGMS, BALLOONS, SOCKS, OR UNDERWEAR?NO LATEX ALLERGY : HAVE YOU EVER DEVELOPED ANY TYPE OF REACTION DURING OR AFTER DENTAL APPOINTMENT, VAGINAL/RECTAL EXAMINATION, SURGICAL PROCEDURE, OR ANY OTHER EXPOSURE?NO DATE ASKED : 01/09/2019 LATEX RISK : HAVE YOU EVER HAD ANY DIFFICULTY BREATHING OR HIVES AFTER EATING OR HANDLING ANY FRUITS, OR VEGETABLES; SUCH KIWI, BANANAS, STONE FRUITS, OR CHESTNUTSNO LATEX RISK : DO YOU HAVE A PREVIOUS PERSONAL HISTORY OF MORE THAN NINE SURGERIES, SPINA BIFIDA, OR REPEATED CATHERIZATIONS? YES - PLEASE INDICATE : > 9 SURGERIES LATEX RISK : ARE YOU FREQUENTLY EXPOSED TO LATEX PRODUCTS IN YOUR OCCUPATION?NO CAFFEINE CAFFEINE USE?YES HOW OFTEN AND HOW MUCH? OCC ADVANCE DIRECTIVE ADVANCE DIRECTIVE DISCUSSED WITH PATIENT:YES 01/09/19PT HAS NO ADVANCED DIRECTIVES, DECLINED HCP INFORMATION OR ASSISTANCE IN FILLING HCP OUT AD [facility] NO [facility] BELIEFS THAT WOULD IMPACT HEALTH CARE. MARITAL STATUS: . ALCOHOL SCREENING POINTS: 0, INTERPRETATION: NEGATIVE. OCCUPATION: RETIRED. SEXUAL HX HAD SEX IN THE LAST 12 MONTHS (VAGINAL, ORAL, OR ANAL)?NO HAVE YOU EVER HAD AN STD?NO REVIEWED WITH PATIENT 02/23/18 1338 JSREVIEWED WITH PATIENT 03/09/18 1437 LASREVIEWED WITH PATIENT 01/23/19 1106 NLJ. HOSPITALIZATION/MAJOR DIAGNOSTIC PROCEDURE SURGERY RELATED CHILD REVIEW OF SYSTEMS REVIEWED BY: PROVIDER: . CONSTITUTIONAL: ANY CHANGE IN YOUR MEDICAL CONDITION? HYPOTHYROID . CHILLS NO . FEVER NO . INFECTION: DO YOU HAVE NEW INFECTIONS? NO . DO YOU HAVE HISTORY OF MRSA? NO . MUSCULOSKELETAL: ANY NEW PATTERNS OF PAIN OR NUMBNESS? NO . GASTROENTEROLOGY: ANY NEW CHANGE IN BOWEL CONTROL? NO . GENITOURINARY: ANY NEW CHANGE IN BLADDER CONTROL? NO . IS THERE A CHANCE YOU COULD BE ? NO . HEMATOLOGY/LYMPH: DO YOU TAKE ANY BLOOD THINNERS? (FOR EXAMPLE- COUMADIN, PLAVIX, AGGRENOX, PLATEL, PRADAXA, OR XARELTO) NO . WHEN WAS YOUR LAST DOSE? DATE: TIME: . NEUROLOGY: HAVE YOU FALLEN IN THE PAST 12 MONTHS? NO . ANY NEW EXTREMITY NUMBNESS OR WEAKNESS? NO . CARDIOLOGY: DO YOU HAVE A PACEMAKER OR DEFIBRILLATOR? NO . RESPIRATORY: HAVE YOU BEEN SICK IN THE PAST WEEK? NO . FEVER NO . FLU LIKE SYMPTOMS? NO . COUGH NO . INTEGUMENTARY: DO YOU HAVE ANY RASHES OR OPEN SORES? NO . ALLERGIC/IMMUNO: ARE YOU ALLERGIC TO IV DYE? NO . ANY NEW ALLERGIES? NO . PSYCHIATRIC: DO YOU HAVE THOUGHTS OF HURTING YOURSELF OR SOMEONE ELSE? NO . ARE YOU ABUSED, NEGLECTED, OR IN AN UNSAFE ENVIRONMENT? NO . ENDOCRINOLOGY: ARE YOU DIABETIC? NO . OTHER: DO YOU NEED ANY PRESCRIPTIONS? NO . IF YES, PLEASE LIST: ____ . ANY NEW PROBLEMS WITH YOUR MEDICATIONS? NO . WHEN DID YOU LAST EAT? ____[phone] . WHEN DID YOU LAST DRINK? ____05-24-42 11 . WHAT DID YOU LAST DRINK? ____7 UP . NAME OF PERSON DRIVING YOU HOME? ____ . DO YOU HAVE ANY OTHER QUESTIONS OR CONCERNS NO . VITAL SIGNS WT 91.4 LBS, HT 59 IN, BMI 18.46 INDEX, BP 174/81 MM HG, HR 75 /MIN, RR 16 /MIN, TEMP 98.5 F, OXYGEN SAT % 98%, NA INITIALS SC 14:09. 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 AURELIANO FIELDS CAR MANAGER NONE ANESTHESIA LOCAL PRE PROCEDURE NOTE THE PATIENT WITH HISTORY OF CHRONIC THORACIC PAIN. I EVALUATED THE PATIENT AND REVIEWED THE CHART. I WENT OVER THE RISKS, ALTERNATIVES, AND BENEFITS ASSOCIATED WITH THIS PROCEDURE. THE PATIENT WOULD LIKE TO PROCEED AND GAVE CONSENT TO PERFORM THE PROCEDURE. THE PATIENT DENIES UNEXPLAINABLE WEIGHT LOSS, FEVER, CHILLS, OR NEW CHANGES IN URINARY OR BOWEL CONTROL. DESCRIPTION OF PROCEDURE THE PATIENT WAS BROUGHT TO THE PROCEDURE ROOM AND PLACED IN THE PRONE POSITION. THE THORACIC AREA WAS CLEANED WITH CHLORAPREP SOLUTION AND DRAPED ASEPTICALLY. THE PROCEDURE WAS DONE UNDER STERILE CONDITIONS. I CHECKED LATERALITY AND THE LEVEL WHERE THE PROCEDURE WAS GOING TO BE PERFORMED WITH THE PATIENT AND THE SUPPORTING STAFF AT THE MOMENT OF THE TIME OUT IN THE PROCEDURE ROOM. UNDER FLUOROSCOPIC GUIDANCE, THE TARGET POINT WAS SELECTED AT THE RIGHT T8-T9, RIGHT T9-T10, RIGHT T10-T11, AND RIGHT T11-T12 THORACIC FACETS. TARGET POINT WAS SELECTED AFTER LATERAL ROTATION AND TILT OF THE MAGNIFIER OF THE C-ARM. LIDOCAINE 0.5% WAS USED TO NUMB THE SKIN AND THE SUBCUTANEOUS TISSUE BELOW IT. SPINAL NEEDLES, 22-GAUGE, WERE ADVANCED UNDER FLUOROSCOPIC GUIDANCE AND FOLLOWING PATIENT FEEDBACK UNTIL THE TARGETS WERE TOUCHED. THE POSITION OF THE NEEDLES WAS VERIFIED WITH MULTIPLE X-RAY VIEWS. AFTER PROPER POSITION OF THE NEEDLES WAS ACHIEVED, ISOVUE-M DYE 30% 0.1 ML WAS INJECTED SHOWING ADEQUATE SPREAD OF THE DYE. THEN A SOLUTION OF 0.9 ML OF BUPIVACAINE 0.125% OF KENALOG 10 MG WAS INJECTED AT EACH SITE. THERE WAS NO EVIDENCE OF BLOOD, PARESTHESIA OR CEREBROSPINAL FLUID DURING THE PROCEDURE. THE PATIENT WAS SENT TO THE RECOVERY ROOM. THE PATIENT WAS MOVING THE EXTREMITIES AND DOING WELL. THERE WAS NO COMPLICATION DURING THE PROCEDURE. FLUOROSCOPY TIME WAS 14 SECONDS POST PROCEDURE NOTE THE PATIENT WILL BE SEEN IN A FOLLOW UP IN THE NEXT FEW WEEKS. INSTRUCTIONS WERE GIVEN, QUESTIONS WERE ANSWERED, AND THE PATIENT EXPRESSED UNDERSTANDING AND AGREED WITH THE PLAN. I, JEM LOPES, DOCUMENTED THE ABOVE INFORMATION ACTING A SCRIBE FOR DR. FIELDS. I HAVE REVIEWED THE ABOVE DOCUMENT, WRITTEN BY JEM SEXTON AND I VERIFY THAT IT IS ACCURATE. PROCEDURE CODES [id number] INJ PARAVERT F JNT C/T 1 LEV, [place]IF[place]ERS: [place] [address] INJ PARAVERT F JNT C/T 2 LEV, MODIFIERS: [place] [address]677 INJ PARAVERT F JNT C/T 3 LEV, MODIFIERS: RT [id number] RADXPS IN END [id number] PXD DISPOSITION & COMMUNICATION FOLLOW UP 3 WEEKS ELECTRONICALLY SIGNED BY AURELIANO FIELDS MD, ON 02/28/2019 AT 02:08 PM EST DISCLAIMER : THIS IS A VISIT SUMMARY EXTRACTED FROM THE [employer] CHART. IT IS NOT A COPY OF THE [employer] PROGRESS NOTE. MTDD
== END ==
LOC: M PAIN 13:45
PROVIDERS: ATTEND Anesthesiology
DX: M47.814 Spondylosis without myelopathy or radiculopathy, thoracic region (principal)
CPT/HCPCS: 64490; 64491; 64492; 71046; J3301; Q9967

== ENCOUNTER → 2019-05-03 | Outpatient (CLI) | payer MEDICARE, BC ==
[2019-05-03 14:36] LABS: FREE T4 1.08 NG/DL (0.76-1.46); THYROID STIMULATING HORMONE 3.55 uIU/ML (0.358-3.740)
== END ==
LOC: M WUC 12:03
PROVIDERS: ATTEND Family Medicine
DX: E03.9 Hypothyroidism, unspecified (principal)

== ENCOUNTER → 2020-02-15 | Outpatient (CLI) | payer MEDICARE, BC ==
[2020-02-15 11:05] LABS: HEMATOCRIT 35.7 % (36.0-47.0); HEMOGLOBIN 10.7 g/dl (12.0-15.5); MEAN CORPUSCULAR HEMOGLOBIN 30.2 pg (27.0-33.0); MEAN CORPUSCULAR VOLUME 100.8 fl (80.0-96.0); PLATELET COUNT, AUTOMATED 247 10^3/uL (150-450); RED BLOOD COUNT 3.54 10^6/uL (4.00-5.40); WHITE BLOOD COUNT 5.9 10^3/uL (4.0-10.0)
[2020-02-15 11:29] LABS: ALBUMIN 3.5 GM/DL (3.2-5.2); BILIRUBIN,TOTAL 0.4 MG/DL (0.2-1.0); CALCIUM LEVEL 9.2 MG/DL (8.8-10.2); CHOLESTEROL RISK RATIO 3.203 (<5); CREATININE FOR GFR 0.98 MG/DL (0.55-1.30); FREE T4 1.14 NG/DL (0.76-1.46); GLOMERULAR FILTRATION RATE 57.6 (>32); THYROID STIMULATING HORMONE 4.11 uIU/ML (0.358-3.740); TOTAL PROTEIN 6.7 GM/DL (6.4-8.2)
== END ==
LOC: M LAB 10:14
PROVIDERS: ATTEND Family Medicine
DX: E78.5 Hyperlipidemia, unspecified (principal); I11.9 Hypertensive heart disease without heart failure

== ENCOUNTER → 2020-07-17 | Outpatient (REF) | payer MEDICARE, BC ==
[2020-07-17 17:54] LABS: APPEARANCE, URINE TURBID (CLEAR); BACTERIA, URINE AUTO NEGATIVE (NEGATIVE); BILIRUBIN, URINE AUTO NEGATIVE (NEGATIVE); BLOOD, URINE BLOOD 2+ (NEGATIVE); COLOR, URINE YELLOW (YELLOW); GLUCOSE, URINE (UA) AUTO NEGATIVE (NEGATIVE); KETONE, URINE AUTO TRACE mg/dL (NEGATIVE); LEUKOCYTE ESTERASE, URINE AUTO 3+ (NEGATIVE); NITRITE, URINE AUTO NEGATIVE (NEGATIVE); PROTEIN, URINE AUTO 2+ mg/dL (NEGATIVE); RBC, URINE AUTO 139 /HPF (0-3); SPECIFIC GRAVITY URINE AUTO 1.023 (1.002-1.035); SQUAMOUS EPITHELIAL CELL UR AU 0 /HPF (0-6); UROBILINOGEN, URINE AUTO 0.2 mg/dL (0.0-2.0); WBC, URINE AUTO TNTC /HPF (0-3)
== END ==
LOC: M SFHCADAM 16:54
PROVIDERS: ATTEND Family Medicine
DX: R30.0 Dysuria (principal)
CPT/HCPCS: 81001; 81002; 87088; 87186; G0463

== ENCOUNTER → 2021-02-20 | Outpatient (CLI) | payer MEDICARE, BC ==
[2021-02-20 14:32] LABS: HEMATOCRIT 34.1 % (36.0-47.0); HEMOGLOBIN 10.6 g/dl (12.0-15.5); MEAN CORPUSCULAR HEMOGLOBIN 31.1 pg (27.0-33.0); MEAN CORPUSCULAR HGB CONC 31.1 g/dl (32.0-36.5); PLATELET COUNT, AUTOMATED 259 10^3/uL (150-450); RED BLOOD COUNT 3.41 10^6/uL (4.00-5.40); WHITE BLOOD COUNT 8.4 10^3/uL (4.0-10.0)
[2021-02-20 15:05] LABS: ALBUMIN 3.4 GM/DL (3.2-5.2); BILIRUBIN,TOTAL 0.6 MG/DL (0.2-1.0); CALCIUM LEVEL 9.1 MG/DL (8.8-10.2); CREATININE FOR GFR 1.14 MG/DL (0.55-1.30); FREE T4 1.15 NG/DL (0.76-1.46); GLOMERULAR FILTRATION RATE 48.2 (>32); POTASSIUM SERUM 4.4 MEQ/L (3.5-5.1); THYROID STIMULATING HORMONE 4.03 uIU/ML (0.358-3.740); TOTAL PROTEIN 6.8 GM/DL (6.4-8.2)
== END ==
LOC: M LAB 14:07
PROVIDERS: ATTEND Family Medicine
DX: M06.89 Other specified rheumatoid arthritis, multiple sites (principal); E07.9 Disorder of thyroid, unspecified

== ENCOUNTER → 2021-08-21 | Outpatient (CLI) | payer MEDICARE, BC ==
[2021-08-21 15:19] LABS: HEMATOCRIT 33.6 % (36.0-47.0); HEMOGLOBIN 10.8 g/dl (12.0-15.5); MEAN CORPUSCULAR HEMOGLOBIN 32.8 pg (27.0-33.0); MEAN CORPUSCULAR HGB CONC 32.1 g/dl (32.0-36.5); MEAN CORPUSCULAR VOLUME 102.1 fl (80.0-96.0); PLATELET COUNT, AUTOMATED 264 10^3/uL (150-450); RED BLOOD COUNT 3.29 10^6/uL (4.00-5.40); WHITE BLOOD COUNT 9.1 10^3/uL (4.0-10.0)
[2021-08-21 15:34] LABS: HEMOGLOBIN A1c 5.2 %
[2021-08-21 15:58] LABS: ALBUMIN 3.5 GM/DL (3.2-5.2); BILIRUBIN,TOTAL 0.4 MG/DL (0.2-1.0); CALCIUM LEVEL 9.4 MG/DL (8.8-10.2); CREATININE FOR GFR 1.32 MG/DL (0.55-1.30); FREE T4 1.19 NG/DL (0.76-1.46); GLOMERULAR FILTRATION RATE 40.6 (>32); THYROID STIMULATING HORMONE 3.32 uIU/ML (0.358-3.740); TOTAL PROTEIN 6.8 GM/DL (6.4-8.2)
== END ==
LOC: M LAB 14:19
PROVIDERS: ATTEND Family Medicine
DX: E03.9 Hypothyroidism, unspecified (principal)

== ENCOUNTER 2021-09-02 12:14 | Inpatient (IN) | payer MEDICARE, BC ==
[~2021-09-02] VITALS: Ht 144.8 cm; Wt 42.0 kg
[2021-09-02 13:29] LABS: BASO % 0.2 % (0.0-1.0); EOS % 0.3 % (0.0-3.0); HEMATOCRIT 36.7 % (36.0-47.0); HEMOGLOBIN 11.7 g/dl (12.0-15.5); LYMPH # 0.5 10^3/uL (1.5-5.0); LYMPH % 5.3 % (24.0-44.0); MEAN CORPUSCULAR HEMOGLOBIN 32.5 pg (27.0-33.0); MEAN CORPUSCULAR HGB CONC 31.9 g/dl (32.0-36.5); MEAN CORPUSCULAR VOLUME 101.9 fl (80.0-96.0); MONO # 0.5 10^3/uL (0.0-0.8); MONO % 5.6 % (2.0-8.0); NEUTROPHILS # 8.4 10^3/uL (1.5-8.5); NEUTROPHILS % 88.3 % (36.0-66.0); PLATELET COUNT, AUTOMATED 223 10^3/uL (150-450); WHITE BLOOD COUNT 9.5 10^3/uL (4.0-10.0)
[2021-09-02 13:55] LABS: OSMOLALITY SERUM 285 MOSM/KG (280-301)
[2021-09-02 13:57] LABS: AMPHETAMINES LEVEL URINE NEGATIVE (NEGATIVE); BARBITURATES URINE NEGATIVE (NEGATIVE); BENZODIAZEPINES URINE NEGATIVE (NEGATIVE); CANNABINOIDS URINE NEGATIVE (NEGATIVE); CK-MB VALUE MASS 1.6 NG/ML (<3.6); COCAINE METABOLITE URINE NEGATIVE (NEGATIVE); MB/CK RELATIVE INDEX 2.62 (< OR =4); METHADONE URINE NEGATIVE (NEGATIVE); OPIATES URINE NEGATIVE (NEGATIVE); PHENCYCLIDINE URINE NEGATIVE (NEGATIVE)
[2021-09-02 14:05] LABS: ACETAMINOPHEN LEVEL 6.7 UG/ML (10.0-30.0); ALBUMIN 3.8 GM/DL (3.2-5.2); ALT/SGPT 17 U/L (12-78); BILIRUBIN,DIRECT 0.2 MG/DL (0.0-0.2); BILIRUBIN,TOTAL 0.5 MG/DL (0.2-1.0); BLOOD UREA NITROGEN 24 MG/DL (7-18); CALCIUM LEVEL 10.4 MG/DL (8.8-10.2); CARBON DIOXIDE LEVEL 27 MEQ/L (21-32); CHLORIDE LEVEL 103 MEQ/L (98-107); CREATININE FOR GFR 1.02 MG/DL (0.55-1.30); ETHYL ALCOHOL (ETHANOL) < 0.003 % (0.000-0.010); GLOMERULAR FILTRATION RATE 54.7 (>32); GLUCOSE, FASTING 106 MG/DL (70-100); POTASSIUM SERUM 4.7 MEQ/L (3.5-5.1); SALICYLATE LEVEL < 1.7 MG/DL (5.0-30.0); SODIUM LEVEL 138 MEQ/L (136-145); TOTAL PROTEIN 7.2 GM/DL (6.4-8.2)
[2021-09-02 14:37] LABS: RSV AMPLIFICATION NEGATIVE (NEGATIVE)
[2021-09-02] MEDS ORDERED: ACETAMINOPHEN TAB 650MG DOSE (2X325MG) PO PRN (16:20)
[2021-09-02] MEDS ORDERED: MOM 30ML SUSPENSION UDC PO PRN (16:20)
[2021-09-02] MEDS ORDERED: MAALOX 30 ML SUSP *UDC PO PRN (16:20)
[2021-09-02] MEDS ORDERED: ASPIRIN 325 MG TAB PO ONE (16:25)
[2021-09-02] MEDS ORDERED: LEVO50TA5 PO (16:52)
[2021-09-02] MEDS ORDERED: MELO15TA28 PO (16:52)
[2021-09-02] MEDS ORDERED: OMEP40CA5 PO (16:52)
[2021-09-02] MEDS ORDERED: METH2.5T48 PO (16:52)
[2021-09-02] MEDS ORDERED: LEVO25TA5 PO (16:52)
[2021-09-02] MEDS ORDERED: OXYC10TA3 PO (16:52)
[2021-09-02] MEDS ORDERED: QUIN40TA26 PO (16:52)
[2021-09-02] MEDS ORDERED: ASPI81TA26 PO (16:56)
[2021-09-02] MEDS ORDERED: FOLI400T13 PO (16:56)
[2021-09-02] MEDS ORDERED: TETR15DR2 OU (16:56)
[2021-09-02] MEDS ORDERED: ACET650T61 PO (16:56)
[2021-09-02] MEDS ORDERED: EQL50TAB2 PO (16:56)
[2021-09-02] MEDS ORDERED: HOME MED LIST COMPLETE! XX SCH (17:00)
[2021-09-02] MEDS ORDERED: hydrALAZINE 20MG/ML 1ML VIAL (J0360 PER 20MG) IV ONE (17:05)
[2021-09-02] MEDS ORDERED: oxyCODONE 5MG TAB PO PRN (17:20)
[2021-09-02] MEDS ORDERED: METHOTREXATE 2.5 MG TAB (J8610 PER 2.5MG) PO SCH (17:20)
[2021-09-02] MEDS ORDERED: TETRAHYDROZOLINE OPHTH 0.05% 15 ML BTL OU PRN (17:20)
[2021-09-02 17:35] LABS: CK-MB VALUE MASS 2.1 NG/ML (<3.6); MB/CK RELATIVE INDEX 4.04 (< OR =4)
[2021-09-02 20:26] VITALS: BP 178/84
[2021-09-02 20:59] LABS: CK-MB VALUE MASS 1.6 NG/ML (<3.6); MB/CK RELATIVE INDEX 3.14 (< OR =4)
[2021-09-02] MEDS ORDERED: ATORVASTATIN 20 MG TAB PO SCH (21:00)
[2021-09-02] MEDS: DOCUSATE SODIUM 100MG CAPSULE PO SCH (21:22)
[2021-09-03] VITALS (9 sets, daily range): BP systolic 143–172; BP diastolic 69–81
[2021-09-03 00:52] LABS: CK-MB VALUE MASS 1.5 NG/ML (<3.6); MB/CK RELATIVE INDEX 3.49 (< OR =4)
[2021-09-03] MEDS: hydrALAZINE 20MG/ML 1ML VIAL (J0360 PER 20MG) IV SCH ×2 (01:04→05:42)
[2021-09-03] MEDS ORDERED: LEVOTHYROXINE 50MCG TABLET (0.05MG) PO SCH (06:00)
[2021-09-03 06:11] LABS: BASO % 0.3 % (0.0-1.0); EOS # 0.1 10^3/uL (0.0-0.5); EOS % 1.7 % (0.0-3.0); HEMOGLOBIN 10.9 g/dl (12.0-15.5); LYMPH # 0.9 10^3/uL (1.5-5.0); LYMPH % 11.8 % (24.0-44.0); MEAN CORPUSCULAR HEMOGLOBIN 32.3 pg (27.0-33.0); MEAN CORPUSCULAR HGB CONC 32.1 g/dl (32.0-36.5); MEAN CORPUSCULAR VOLUME 100.9 fl (80.0-96.0); MONO # 0.6 10^3/uL (0.0-0.8); MONO % 8.3 % (2.0-8.0); NEUTROPHILS # 5.9 10^3/uL (1.5-8.5); NEUTROPHILS % 77.5 % (36.0-66.0); PLATELET COUNT, AUTOMATED 216 10^3/uL (150-450); RED BLOOD COUNT 3.37 10^6/uL (4.00-5.40); WHITE BLOOD COUNT 7.6 10^3/uL (4.0-10.0)
[2021-09-03 06:32] LABS: HEMOGLOBIN A1c 5.2 %
[2021-09-03 06:38] LABS: BLOOD UREA NITROGEN 19 MG/DL (7-18); CALCIUM LEVEL 9.7 MG/DL (8.8-10.2); CARBON DIOXIDE LEVEL 26 MEQ/L (21-32); CHLORIDE LEVEL 104 MEQ/L (98-107); CHOLESTEROL LEVEL 142 MG/DL (<200); CHOLESTEROL RISK RATIO 2.679 (<5); CREATININE FOR GFR 0.79 MG/DL (0.55-1.30); GLOMERULAR FILTRATION RATE > 60.0 (>32); GLUCOSE, FASTING 86 MG/DL (70-100); HDL CHOLESTEROL 53 MG/DL (>40); LDL CHOLESTEROL 73 MG/DL (<100); NON-HDL-C 89 MG/DL; POTASSIUM SERUM 4.2 MEQ/L (3.5-5.1); SODIUM LEVEL 138 MEQ/L (136-145); TRIGLYCERIDES LEVEL 78 MG/DL (<150)
[2021-09-03] MEDS ORDERED: ASPIRIN 325 MG TAB PO SCH (09:00)
[2021-09-03] MEDS ORDERED: ENOXAPARIN 30MG/0.3ML SYRINGE (J1650 PER 10MG) SC SCH (09:00)
[2021-09-03] MEDS ORDERED: QUINAPRIL 20 MG TAB PO SCH (09:00)
[2021-09-03] MEDS ORDERED: OMEPRAZOLE 20MG CAP PO SCH (09:00)
[2021-09-03] MEDS: DOCUSATE SODIUM 100MG CAPSULE PO SCH (09:31)
[2021-09-03] MEDS ORDERED: ASPI-1 PO (16:08)
[2021-09-03] MEDS ORDERED: ATOR1TAB21 PO (16:08)
[2021-09-03] MEDS ORDERED: ACCU1TAB2 PO (16:08)
[2021-09-03] MEDS ORDERED: ATORVASTATIN 20 MG TAB PO SCH (21:00)
== END 2021-09-03 16:31 | DRG 66 ==
LOC: M ED 12:14 → M ED INP 16:19 → ENRESERV 16:38 → M PCU 19:48
PROVIDERS: ADMIT Internal Medicine; ATTEND Internal Medicine Nephrology
DX: I63.59 Cerebral infarction due to unspecified occlusion or stenosis of other cerebral artery (principal); I10 Essential (primary) hypertension; E03.9 Hypothyroidism, unspecified; M06.9 Rheumatoid arthritis, unspecified; M81.0 Age-related osteoporosis without current pathological fracture; D64.9 Anemia, unspecified; I73.9 Peripheral vascular disease, unspecified; E55.9 Vitamin D deficiency, unspecified; K21.9 Gastro-esophageal reflux disease without esophagitis; Z96.643 Presence of artificial hip joint, bilateral; Z96.652 Presence of left artificial knee joint; Z79.82 Long term (current) use of aspirin; Z79.899 Other long term (current) drug therapy; Z88.1 Allergy status to other antibiotic agents; Z88.2 Allergy status to sulfonamides

== ENCOUNTER 2021-09-29 18:43 | Emergency (ER) | payer BC, MEDICARE ==
[~2021-09-29] VITALS: Ht 147.3 cm; Wt 42.0 kg
[~2021-09-29 18:43] MED LIST changes: +ACCU1TAB2 PO; +ACET650T61 PO; +ASPI-1 PO; +ASPI81TA26 PO; +ATOR1TAB21 PO; -BUPIVACAINE HCL 0.25% 30 ML VIAL As Ordered ONE; +EQL50TAB2 PO; +FOLI400T13 PO; +HYDR25TA PO; -ISOVUE-M 300 61% 15ML VIAL (Q9967) As Ordered ONE; +LEVO25TA5 PO; +LEVO50TA5 PO; -LIDOCAINE 1% SDV INJ 30 ML VIAL As Ordered ONE; +MELO15TA28 PO; +METH2.5T48 PO; +OMEP40CA5 PO; +OXYC10TA3 PO; +QUIN40TA26 PO; +TETR15DR2 OU; -TRIAMCINOLONE ACETONIDE SUSP 40 MG/ML VIAL (J3301) As Ordered ONE
[2021-09-29] MEDS ORDERED: SYST0.4D2 OP (18:58)
[2021-09-29] MEDS ORDERED: FERR1TAB8 PO (18:58)
[2021-09-29] MEDS ORDERED: VITA100093 PO (18:58)
[2021-09-29] MEDS ORDERED: COLA100C5 PO (18:58)
[2021-09-29 20:44] LABS: BASO % 0.2 % (0.0-1.0); EOS # 0.1 10^3/uL (0.0-0.5); EOS % 1.9 % (0.0-3.0); HEMOGLOBIN 9.3 g/dl (12.0-15.5); LYMPH # 0.7 10^3/uL (1.5-5.0); LYMPH % 12.2 % (24.0-44.0); MEAN CORPUSCULAR HEMOGLOBIN 32.5 pg (27.0-33.0); MEAN CORPUSCULAR HGB CONC 32.1 g/dl (32.0-36.5); MEAN CORPUSCULAR VOLUME 101.4 fl (80.0-96.0); MONO # 0.5 10^3/uL (0.0-0.8); MONO % 10.2 % (2.0-8.0); NEUTROPHILS % 75.3 % (36.0-66.0); PLATELET COUNT, AUTOMATED 223 10^3/uL (150-450); RED BLOOD COUNT 2.86 10^6/uL (4.00-5.40); WHITE BLOOD COUNT 5.3 10^3/uL (4.0-10.0)
[2021-09-29 21:11] LABS: ALBUMIN 3.2 GM/DL (3.2-5.2); BILIRUBIN,DIRECT 0.2 MG/DL (0.0-0.2); BILIRUBIN,TOTAL 0.2 MG/DL (0.2-1.0); CALCIUM LEVEL 9.3 MG/DL (8.8-10.2); TOTAL PROTEIN 6.2 GM/DL (6.4-8.2)
[2021-09-29 21:25] LABS: RSV AMPLIFICATION NEGATIVE (NEGATIVE)
[2021-09-29 22:15] VITALS: BP 166/81
[2021-09-29] MEDS ORDERED: BENZONATATE 100MG CAPSULE PO ONE (22:25)
[2021-09-29] MEDS ORDERED: GABAPENTIN 100 MG CAP PO ONE (22:25)
[2021-09-29] MEDS ORDERED: BENZ200C70 PO (22:27)
[2021-09-29] MEDS ORDERED: NEUR100C PO (22:27)
== END 2021-09-29 22:55 | disposition home or self-care (01) ==
LOC: M ED 18:43
DX: R05.9 Cough, unspecified (principal); R06.02 Shortness of breath; M79.671 Pain in right foot; I10 Essential (primary) hypertension; E78.5 Hyperlipidemia, unspecified; I69.851 Hemiplegia and hemiparesis following other cerebrovascular disease affecting right dominant side; M06.9 Rheumatoid arthritis, unspecified; Z87.442 Personal history of urinary calculi; Z88.1 Allergy status to other antibiotic agents; Z88.2 Allergy status to sulfonamides; Z79.899 Other long term (current) drug therapy; Z79.82 Long term (current) use of aspirin; Z79.890 Hormone replacement therapy

== ENCOUNTER → 2021-10-14 | Outpatient (CLI) | payer MEDICARE, BC ==
[~2021-10-14] MED LIST changes: +BENZ200C70 PO; +COLA100C5 PO; +FERR1TAB8 PO; +NEUR100C PO; +SYST0.4D2 OP; +VITA100093 PO
== END ==
LOC: M ADAMS 15:39
PROVIDERS: ATTEND Family Medicine
DX: R05.9 Cough, unspecified (principal); J91.8 Pleural effusion in other conditions classified elsewhere

== ENCOUNTER → 2021-10-14 | Outpatient (REF) | payer MEDICARE, BC ==
[2021-10-14 20:17] LABS: HEMATOCRIT 31.3 % (36.0-47.0); HEMOGLOBIN 9.8 g/dl (12.0-15.5); MEAN CORPUSCULAR HEMOGLOBIN 32.6 pg (27.0-33.0); MEAN CORPUSCULAR HGB CONC 31.3 g/dl (32.0-36.5); PLATELET COUNT, AUTOMATED 210 10^3/uL (150-450); RED BLOOD COUNT 3.01 10^6/uL (4.00-5.40); WHITE BLOOD COUNT 5.9 10^3/uL (4.0-10.0)
[2021-10-14 20:45] LABS: ALBUMIN 3.4 GM/DL (3.2-5.2); BILIRUBIN,TOTAL 0.4 MG/DL (0.2-1.0); C REACTIVE PROTEIN QUANTITATIV 1.13 MG/DL (0.00-0.30); CALCIUM LEVEL 8.9 MG/DL (8.8-10.2); CREATININE FOR GFR 1.02 MG/DL (0.55-1.30); FREE T4 1.23 NG/DL (0.76-1.46); GLOMERULAR FILTRATION RATE 54.7 (>32); PERCENT SATURATION 10.1 % (13.2-45.0); POTASSIUM SERUM 4.4 MEQ/L (3.5-5.1); THYROID STIMULATING HORMONE 2.51 uIU/ML (0.358-3.740); TOTAL 25(OH) VITAMIN D 77.5 NG/ML (30.0-100.0); TOTAL PROTEIN 6.4 GM/DL (6.4-8.2)
== END ==
LOC: M SFHCADAM 15:05
PROVIDERS: ATTEND Family Medicine
DX: M06.9 Rheumatoid arthritis, unspecified (principal); R53.83 Other fatigue; E03.9 Hypothyroidism, unspecified; D63.8 Anemia in other chronic diseases classified elsewhere; N18.31 Chronic kidney disease, stage 3a; I12.9 Hypertensive chronic kidney disease with stage 1 through stage 4 chronic kidney disease, or unspecified chronic kidney disease

== ENCOUNTER → 2022-01-03 | Outpatient (CLI) | payer MEDICARE, BC ==
[2022-01-03 16:35] LABS: HEMATOCRIT 33.3 % (36.0-47.0); HEMOGLOBIN 10.5 g/dl (12.0-15.5); MEAN CORPUSCULAR HEMOGLOBIN 32.5 pg (27.0-33.0); MEAN CORPUSCULAR HGB CONC 31.5 g/dl (32.0-36.5); MEAN CORPUSCULAR VOLUME 103.1 fl (80.0-96.0); PLATELET COUNT, AUTOMATED 274 10^3/uL (150-450); RED BLOOD COUNT 3.23 10^6/uL (4.00-5.40); WHITE BLOOD COUNT 4.4 10^3/uL (4.0-10.0)
[2022-01-03 17:21] LABS: BLOOD UREA NITROGEN 17 MG/DL (7-18); CALCIUM LEVEL 9.4 MG/DL (8.8-10.2); CARBON DIOXIDE LEVEL 29 MEQ/L (21-32); CHLORIDE LEVEL 102 MEQ/L (98-107); GLOMERULAR FILTRATION RATE > 60.0 (>32); GLUCOSE, FASTING 100 MG/DL (70-100); POTASSIUM SERUM 4.3 MEQ/L (3.5-5.1); SODIUM LEVEL 136 MEQ/L (136-145)
== END ==
LOC: M LAB 16:12
PROVIDERS: ATTEND Family Medicine
DX: N18.31 Chronic kidney disease, stage 3a (principal); D63.8 Anemia in other chronic diseases classified elsewhere

== ENCOUNTER → 2022-05-11 | Outpatient (CLI) | payer MEDICARE, BC | LOC: M ADAMS 11:30 | PROVIDERS: ATTEND Physician Assistant | DX: R00.0 Tachycardia, unspecified (principal) ==

== ENCOUNTER → 2022-05-11 | Outpatient (REF) | payer MEDICARE, BC ==
[2022-05-11 17:53] LABS: BASO % 0.2 % (0.0-1.0); EOS % 0.6 % (0.0-3.0); HEMATOCRIT 28.3 % (36.0-47.0); HEMOGLOBIN 9.1 g/dl (12.0-15.5); LYMPH # 0.4 10^3/uL (1.5-5.0); LYMPH % 6.9 % (24.0-44.0); MEAN CORPUSCULAR HEMOGLOBIN 33.7 pg (27.0-33.0); MEAN CORPUSCULAR HGB CONC 32.2 g/dl (32.0-36.5); MEAN CORPUSCULAR VOLUME 104.8 fl (80.0-96.0); MONO # 0.3 10^3/uL (0.0-0.8); MONO % 5.2 % (2.0-8.0); NEUTROPHILS # 4.5 10^3/uL (1.5-8.5); NEUTROPHILS % 86.3 % (36.0-66.0); PLATELET COUNT, AUTOMATED 134 10^3/uL (150-450); WHITE BLOOD COUNT 5.2 10^3/uL (4.0-10.0)
[2022-05-11 18:27] LABS: IRON (FE) 7 UG/DL (50-170)
[2022-05-11 18:28] LABS: ALKALINE PHOSPHATASE 79 U/L (46-116); ALT/SGPT 16 U/L (7.0-40); AST/SGOT 36 U/L (<34); BILIRUBIN,TOTAL 0.7 MG/DL (0.3-1.2); BLOOD UREA NITROGEN 19 MG/DL (9-23); CALCIUM LEVEL 8.5 MG/DL (8.3-10.6); CARBON DIOXIDE LEVEL 29 MMOL/L (20-31); CHLORIDE LEVEL 96 MMOL/L (98-107); CREATININE FOR GFR 0.81 MG/DL (0.55-1.30); GLOMERULAR FILTRATION RATE > 60.0 (>32); GLUCOSE, FASTING 96 MG/DL (74-106); PERCENT SATURATION 4.2 % (13.2-45.0); POTASSIUM SERUM 4.1 MMOL/L (3.5-5.1); SODIUM LEVEL 132 MMOL/L (136-145); TOTAL IRON BINDING CAPACITY 166 UG/DL (250-425); TOTAL PROTEIN 6.4 G/DL (5.7-8.2)
[2022-05-11 18:34] LABS: FERRITIN 640.9 NG/ML (7.3-270.7); FREE T4 1.53 NG/DL (0.89-1.76); THYROID STIMULATING HORMONE 1.055 uIU/ML (0.55-4.78)
[2022-05-11 18:35] LABS: TOTAL 25(OH) VITAMIN D 79.5 NG/ML (20.0-100.0)
== END ==
LOC: M SFHCADAM 11:21
PROVIDERS: ATTEND Physician Assistant
DX: R73.03 Prediabetes (principal); N18.31 Chronic kidney disease, stage 3a; E03.9 Hypothyroidism, unspecified; M06.89 Other specified rheumatoid arthritis, multiple sites; D63.8 Anemia in other chronic diseases classified elsewhere; R00.0 Tachycardia, unspecified; R05.1 Acute cough

== ENCOUNTER → 2022-05-20 | Outpatient (REF) | payer MEDICARE, BC ==
[2022-05-20 22:53] LABS: PERCENT SATURATION 6.5 % (13.2-45.0)
[2022-05-20 22:56] LABS: FERRITIN 469.8 NG/ML (7.3-270.7)
== END ==
LOC: M LAB REF 22:18
PROVIDERS: ATTEND Physician Assistant
DX: D64.9 Anemia, unspecified (principal)

== ENCOUNTER 2022-05-25 16:47 | Inpatient (IN) | payer MEDICARE, BC ==
[~2022-05-25] VITALS: Ht 144.8 cm; Wt 55.0 kg
[2022-05-25] MEDS ORDERED: ACETAMINOPHEN TAB 650MG DOSE (2X325MG) PO PRN (19:00)
[2022-05-25 20:06] LABS: HEMATOCRIT 28.1 % (36.0-47.0); HEMOGLOBIN 8.7 g/dl (12.0-15.5); MEAN CORPUSCULAR HEMOGLOBIN 32.2 pg (27.0-33.0); MEAN CORPUSCULAR VOLUME 104.1 fl (80.0-96.0); PLATELET COUNT, AUTOMATED 612 10^3/uL (150-450); WHITE BLOOD COUNT 18.6 10^3/uL (4.0-10.0)
[2022-05-25 20:18] LABS: INR 1.17; PROTHROMBIN TIME 15.1 SECONDS (12.5-14.5)
[2022-05-25 20:49] LABS: ALBUMIN 2.7 G/DL (3.2-5.2); ALKALINE PHOSPHATASE 102 U/L (46-116); ALT/SGPT 14 U/L (7.0-40); AST/SGOT 24 U/L (<34); BILIRUBIN,TOTAL 0.6 MG/DL (0.3-1.2); BLOOD UREA NITROGEN 24 MG/DL (9-23); CALCIUM LEVEL 9.4 MG/DL (8.3-10.6); CARBON DIOXIDE LEVEL 26 MMOL/L (20-31); CHLORIDE LEVEL 98 MMOL/L (98-107); CREATININE FOR GFR 0.91 MG/DL (0.55-1.30); FREE T4 1.51 NG/DL (0.89-1.76); GLOMERULAR FILTRATION RATE > 60.0 (>32); GLUCOSE, FASTING 113 MG/DL (74-106); MAGNESIUM LEVEL 1.7 MG/DL (1.8-2.4); POTASSIUM SERUM 4.4 MMOL/L (3.5-5.1); SODIUM LEVEL 132 MMOL/L (136-145); THYROID STIMULATING HORMONE 4.334 uIU/ML (0.55-4.78); TOTAL PROTEIN 6.3 G/DL (5.7-8.2)
[2022-05-25] MEDS: **hydrALAZINE HCL** 25 MG TAB PO SCH (21:00)
[2022-05-25 21:25] VITALS: BP 112/60
[2022-05-25] MEDS ORDERED: ceFAZolin SOD 2 GM in IV 1 EA IV SCH (22:05)
[2022-05-25] MEDS ORDERED: MAG SULF 1GM/100ML (MAG RUN) 1 GM in IV 1 EA IV ONE (22:05)
[2022-05-25] MEDS ORDERED: MELO15TA28 PO (22:50)
[2022-05-25] MEDS ORDERED: DOCU100C16 PO (22:50)
[2022-05-25] MEDS ORDERED: ASPI-161 PO (22:50)
[2022-05-25] MEDS ORDERED: OMEP40CA5 PO (22:50)
[2022-05-25] MEDS ORDERED: GABA-1171 PO (22:50)
[2022-05-25] MEDS ORDERED: HYDR-3910 PO (22:50)
[2022-05-25] MEDS ORDERED: FERR32TA PO (22:50)
[2022-05-25] MEDS ORDERED: ATOR1TAB21 PO (22:50)
[2022-05-25] MEDS ORDERED: SYST1SOL4 OU (22:50)
[2022-05-25] MEDS ORDERED: TRAZ-252 PO (22:50)
[2022-05-25] MEDS ORDERED: QUIN20TA48 PO (22:50)
[2022-05-25] MEDS ORDERED: SYNT50TA PO (22:50)
[2022-05-25] MEDS ORDERED: traZODone 50 MG TAB PO PRN (22:55)
[2022-05-25] MEDS ORDERED: HOME MED LIST COMPLETE! XX SCH (22:55)
[2022-05-25] MEDS: ATORVASTATIN 20 MG TAB PO SCH (23:46)
[2022-05-25] MEDS: GABAPENTIN 100 MG CAP PO SCH (23:47)
[2022-05-25] MEDS: DOCUSATE SODIUM 100MG CAPSULE PO SCH (23:47)
[2022-05-25] MEDS: guaiFENesin ER 600 MG TAB PO SCH (23:52)
[2022-05-26] MEDS: NS 1,000 ML IV SCH ×2 (01:30→15:07)
[2022-05-26] MEDS: ceFAZolin SOD 1 GM in D5W MINI-BAG PLUS 50 ML IV SCH ×2 (02:52→15:07)
[2022-05-26] MEDS: LEVOTHYROXINE 50MCG TABLET (0.05MG) PO SCH (05:30)
[2022-05-26 05:35] VITALS: BP 130/62
[2022-05-26 06:56] LABS: BASO % 0.3 % (0.0-1.0); EOS # 0.2 10^3/uL (0.0-0.5); EOS % 1.8 % (0.0-3.0); HEMATOCRIT 23.8 % (36.0-47.0); HEMOGLOBIN 7.4 g/dl (12.0-15.5); LYMPH # 1.4 10^3/uL (1.5-5.0); LYMPH % 10.5 % (24.0-44.0); MEAN CORPUSCULAR HEMOGLOBIN 32.2 pg (27.0-33.0); MEAN CORPUSCULAR HGB CONC 31.1 g/dl (32.0-36.5); MEAN CORPUSCULAR VOLUME 103.5 fl (80.0-96.0); MONO # 0.6 10^3/uL (0.0-0.8); NEUTROPHILS # 10.5 10^3/uL (1.5-8.5); WHITE BLOOD COUNT 12.9 10^3/uL (4.0-10.0)
[2022-05-26 06:58] LABS: PLATELET COUNT, AUTOMATED 447 10^3/uL (150-450)
[2022-05-26 07:20] LABS: BLOOD UREA NITROGEN 21 MG/DL (9-23); CALCIUM LEVEL 8.4 MG/DL (8.3-10.6); CARBON DIOXIDE LEVEL 26 MMOL/L (20-31); CHLORIDE LEVEL 101 MMOL/L (98-107); CREATININE FOR GFR 0.79 MG/DL (0.55-1.30); GLOMERULAR FILTRATION RATE > 60.0 (>32); GLUCOSE, FASTING 92 MG/DL (74-106); MAGNESIUM LEVEL 1.9 MG/DL (1.8-2.4); POTASSIUM SERUM 4.2 MMOL/L (3.5-5.1); SODIUM LEVEL 134 MMOL/L (136-145)
[2022-05-26] MEDS: ENOXAPARIN 30MG/0.3ML SYRINGE (J1650 PER 10MG) SC SCH (08:03)
[2022-05-26] MEDS: FERROUS GLUCONATE 324 MG TAB PO SCH (08:04)
[2022-05-26] MEDS: VITAMIN B COMPLEX/VIT C CAP PO SCH (08:04)
[2022-05-26] MEDS: guaiFENesin ER 600 MG TAB PO SCH ×2 (08:04→21:56)
[2022-05-26] MEDS: MELOXICAM (MOBIC) 7.5 MG TAB PO SCH (08:04)
[2022-05-26] MEDS: GABAPENTIN 100 MG CAP PO SCH ×3 (08:04→21:56)
[2022-05-26] MEDS: OMEPRAZOLE 20MG CAP PO SCH (08:04)
[2022-05-26] MEDS: FOLIC ACID 1MG TAB PO SCH (08:04)
[2022-05-26] MEDS: ASPIRIN 81MG ENTERIC TABLET PO SCH (08:05)
[2022-05-26] MEDS: QUINAPRIL 20 MG TAB PO SCH (08:05)
[2022-05-26] MEDS: **hydrALAZINE HCL** 25 MG TAB PO SCH ×3 (08:05→21:57)
[2022-05-26] MEDS ORDERED: METHOTREXATE 2.5MG TAB PO SCH (09:00)
[2022-05-26 14:00] VITALS: BP 145/62
[2022-05-26 20:08] VITALS: BP_SYST 14; BP_SYST 140; BP_DIAS 71
[2022-05-26] MEDS ORDERED: PROHANCE 279.3MG/ML 5ML VIAL As Ordered ONE (21:20)
[2022-05-26] MEDS: DOCUSATE SODIUM 100MG CAPSULE PO SCH (21:56)
[2022-05-26] MEDS: ATORVASTATIN 20 MG TAB PO SCH (21:56)
[2022-05-27] MEDS: ceFAZolin SOD 1 GM in D5W MINI-BAG PLUS 50 ML IV SCH ×2 (02:01→14:59)
[2022-05-27] MEDS: LEVOTHYROXINE 50MCG TABLET (0.05MG) PO SCH (05:02)
[2022-05-27 05:09] LABS: BASO % 0.2 % (0.0-1.0); EOS # 0.2 10^3/uL (0.0-0.5); EOS % 1.7 % (0.0-3.0); HEMATOCRIT 22.4 % (36.0-47.0); LYMPH # 1.1 10^3/uL (1.5-5.0); LYMPH % 7.5 % (24.0-44.0); MEAN CORPUSCULAR HEMOGLOBIN 32.1 pg (27.0-33.0); MEAN CORPUSCULAR HGB CONC 31.3 g/dl (32.0-36.5); MEAN CORPUSCULAR VOLUME 102.8 fl (80.0-96.0); MONO # 0.7 10^3/uL (0.0-0.8); MONO % 4.9 % (2.0-8.0); NEUTROPHILS # 12.2 10^3/uL (1.5-8.5); NEUTROPHILS % 84.5 % (36.0-66.0); PLATELET COUNT, AUTOMATED 391 10^3/uL (150-450); RED BLOOD COUNT 2.18 10^6/uL (4.00-5.40); WHITE BLOOD COUNT 14.4 10^3/uL (4.0-10.0)
[2022-05-27 05:40] LABS: BLOOD UREA NITROGEN 15 MG/DL (9-23); CALCIUM LEVEL 7.7 MG/DL (8.3-10.6); CARBON DIOXIDE LEVEL 24 MMOL/L (20-31); CHLORIDE LEVEL 104 MMOL/L (98-107); CREATININE FOR GFR 0.74 MG/DL (0.55-1.30); GLOMERULAR FILTRATION RATE > 60.0 (>32); GLUCOSE, FASTING 98 MG/DL (74-106); POTASSIUM SERUM 3.9 MMOL/L (3.5-5.1); SODIUM LEVEL 134 MMOL/L (136-145)
[2022-05-27 05:57] VITALS: BP 144/90
[2022-05-27] MEDS: guaiFENesin ER 600 MG TAB PO SCH ×2 (08:17→20:18)
[2022-05-27] MEDS: ENOXAPARIN 30MG/0.3ML SYRINGE (J1650 PER 10MG) SC SCH (08:17)
[2022-05-27] MEDS: OMEPRAZOLE 20MG CAP PO SCH (08:18)
[2022-05-27] MEDS: VITAMIN B COMPLEX/VIT C CAP PO SCH (08:18)
[2022-05-27] MEDS: QUINAPRIL 20 MG TAB PO SCH (08:18)
[2022-05-27] MEDS: MELOXICAM (MOBIC) 7.5 MG TAB PO SCH (08:18)
[2022-05-27] MEDS: ASPIRIN 81MG ENTERIC TABLET PO SCH (08:18)
[2022-05-27] MEDS: FOLIC ACID 1MG TAB PO SCH (08:19)
[2022-05-27] MEDS: GABAPENTIN 100 MG CAP PO SCH ×3 (08:19→20:18)
[2022-05-27] MEDS: **hydrALAZINE HCL** 25 MG TAB PO SCH ×4 (08:19→20:20)
[2022-05-27] MEDS: FERROUS GLUCONATE 324 MG TAB PO SCH (08:19)
[2022-05-27 14:00] VITALS: BP 156/74
[2022-05-27 19:51] VITALS: BP 123/56
[2022-05-27] MEDS: DOCUSATE SODIUM 100MG CAPSULE PO SCH (20:18)
[2022-05-27] MEDS: ATORVASTATIN 20 MG TAB PO SCH (20:18)
[2022-05-28] MEDS: LEVOTHYROXINE 50MCG TABLET (0.05MG) PO SCH (05:06)
[2022-05-28 05:45] VITALS: BP 165/82
[2022-05-28 06:07] LABS: BASO # 0.1 10^3/uL (0.0-0.2); BASO % 0.4 % (0.0-1.0); EOS # 0.1 10^3/uL (0.0-0.5); EOS % 0.8 % (0.0-3.0); HEMATOCRIT 28.5 % (36.0-47.0); HEMOGLOBIN 8.9 g/dl (12.0-15.5); LYMPH # 1.1 10^3/uL (1.5-5.0); LYMPH % 6.7 % (24.0-44.0); MEAN CORPUSCULAR HEMOGLOBIN 32.5 pg (27.0-33.0); MEAN CORPUSCULAR HGB CONC 31.2 g/dl (32.0-36.5); MONO # 0.4 10^3/uL (0.0-0.8); MONO % 2.5 % (2.0-8.0); NEUTROPHILS # 15.2 10^3/uL (1.5-8.5); NEUTROPHILS % 88.8 % (36.0-66.0); PLATELET COUNT, AUTOMATED 454 10^3/uL (150-450); RED BLOOD COUNT 2.74 10^6/uL (4.00-5.40); WHITE BLOOD COUNT 17.1 10^3/uL (4.0-10.0)
[2022-05-28 06:22] LABS: BLOOD UREA NITROGEN 13 MG/DL (9-23); CALCIUM LEVEL 8.2 MG/DL (8.3-10.6); CARBON DIOXIDE LEVEL 24 MMOL/L (20-31); CHLORIDE LEVEL 101 MMOL/L (98-107); CREATININE FOR GFR 0.61 MG/DL (0.55-1.30); GLOMERULAR FILTRATION RATE > 60.0 (>32); GLUCOSE, FASTING 81 MG/DL (74-106); POTASSIUM SERUM 3.8 MMOL/L (3.5-5.1); SODIUM LEVEL 134 MMOL/L (136-145)
[2022-05-28 08:30] VITALS: BP 162/85
[2022-05-28] MEDS: ASPIRIN 81MG ENTERIC TABLET PO SCH (10:52)
[2022-05-28] MEDS: OMEPRAZOLE 20MG CAP PO SCH (10:53)
[2022-05-28] MEDS: GABAPENTIN 100 MG CAP PO SCH ×3 (10:54→20:29)
[2022-05-28] MEDS: FOLIC ACID 1MG TAB PO SCH (10:54)
[2022-05-28] MEDS: QUINAPRIL 20 MG TAB PO SCH (10:54)
[2022-05-28] MEDS: VITAMIN B COMPLEX/VIT C CAP PO SCH (10:54)
[2022-05-28] MEDS: **hydrALAZINE HCL** 25 MG TAB PO SCH ×3 (10:55→20:30)
[2022-05-28] MEDS: guaiFENesin ER 600 MG TAB PO SCH ×2 (10:55→20:29)
[2022-05-28] MEDS: MELOXICAM (MOBIC) 7.5 MG TAB PO SCH (10:55)
[2022-05-28] MEDS: FERROUS GLUCONATE 324 MG TAB PO SCH (10:55)
[2022-05-28] MEDS: ENOXAPARIN 30MG/0.3ML SYRINGE (J1650 PER 10MG) SC SCH (10:56)
[2022-05-28 14:00] VITALS: BP 159/87
[2022-05-28] MEDS: ALBUTEROL SULFATE 2.5MG/0.5ML INH NEB SOLN NEB SCH (20:00)
[2022-05-28] MEDS: ATORVASTATIN 20 MG TAB PO SCH (20:30)
[2022-05-28] MEDS: DOCUSATE SODIUM 100MG CAPSULE PO SCH (20:30)
[2022-05-28 21:37] VITALS: BP 132/77
[2022-05-29] MEDS: LEVOTHYROXINE 50MCG TABLET (0.05MG) PO SCH (05:31)
[2022-05-29 06:00] VITALS: BP 160/76
[2022-05-29 06:22] LABS: BASO % 0.2 % (0.0-1.0); EOS # 0.2 10^3/uL (0.0-0.5); EOS % 1.1 % (0.0-3.0); HEMATOCRIT 26.5 % (36.0-47.0); LYMPH # 0.9 10^3/uL (1.5-5.0); LYMPH % 6.1 % (24.0-44.0); MEAN CORPUSCULAR HEMOGLOBIN 31.4 pg (27.0-33.0); MEAN CORPUSCULAR HGB CONC 30.2 g/dl (32.0-36.5); MEAN CORPUSCULAR VOLUME 103.9 fl (80.0-96.0); MONO # 0.1 10^3/uL (0.0-0.8); MONO % 0.9 % (2.0-8.0); NEUTROPHILS # 13.5 10^3/uL (1.5-8.5); NEUTROPHILS % 90.8 % (36.0-66.0); PLATELET COUNT, AUTOMATED 407 10^3/uL (150-450); RED BLOOD COUNT 2.55 10^6/uL (4.00-5.40); WHITE BLOOD COUNT 14.9 10^3/uL (4.0-10.0)
[2022-05-29 07:12] LABS: BLOOD UREA NITROGEN 17 MG/DL (9-23); CALCIUM LEVEL 8.1 MG/DL (8.3-10.6); CARBON DIOXIDE LEVEL 23 MMOL/L (20-31); CHLORIDE LEVEL 102 MMOL/L (98-107); CREATININE FOR GFR 0.67 MG/DL (0.55-1.30); GLOMERULAR FILTRATION RATE > 60.0 (>32); GLUCOSE, FASTING 89 MG/DL (74-106); POTASSIUM SERUM 3.9 MMOL/L (3.5-5.1); SODIUM LEVEL 135 MMOL/L (136-145)
[2022-05-29] MEDS: ALBUTEROL SULFATE 2.5MG/0.5ML INH NEB SOLN NEB SCH ×5 (07:53→20:53)
[2022-05-29] MEDS: GABAPENTIN 100 MG CAP PO SCH ×3 (11:04→21:51)
[2022-05-29] MEDS: ENOXAPARIN 30MG/0.3ML SYRINGE (J1650 PER 10MG) SC SCH (11:04)
[2022-05-29] MEDS: QUINAPRIL 20 MG TAB PO SCH (11:05)
[2022-05-29] MEDS: ASPIRIN 81MG ENTERIC TABLET PO SCH (11:05)
[2022-05-29] MEDS: OMEPRAZOLE 20MG CAP PO SCH (11:05)
[2022-05-29] MEDS: VITAMIN B COMPLEX/VIT C CAP PO SCH (11:05)
[2022-05-29] MEDS: MELOXICAM (MOBIC) 7.5 MG TAB PO SCH (11:05)
[2022-05-29] MEDS: guaiFENesin ER 600 MG TAB PO SCH ×2 (11:06→21:51)
[2022-05-29] MEDS: FOLIC ACID 1MG TAB PO SCH (11:06)
[2022-05-29] MEDS: FERROUS GLUCONATE 324 MG TAB PO SCH (11:06)
[2022-05-29] MEDS: **hydrALAZINE HCL** 25 MG TAB PO SCH ×3 (11:06→21:50)
[2022-05-29] MEDS: DOCUSATE SODIUM 100MG CAPSULE PO SCH (21:49)
[2022-05-29] MEDS: ATORVASTATIN 20 MG TAB PO SCH (21:49)
[2022-05-29 22:00] VITALS: BP 160/88
[2022-05-30] MEDS: ALBUTEROL SULFATE 2.5MG/0.5ML INH NEB SOLN NEB SCH ×7 (04:00→23:03)
[2022-05-30] MEDS: LEVOTHYROXINE 50MCG TABLET (0.05MG) PO SCH (05:24)
[2022-05-30 06:00] VITALS: BP 152/84
[2022-05-30 06:23] LABS: BASO % 0.2 % (0.0-1.0); EOS # 0.3 10^3/uL (0.0-0.5); EOS % 1.9 % (0.0-3.0); HEMATOCRIT 26.6 % (36.0-47.0); HEMOGLOBIN 8.2 g/dl (12.0-15.5); LYMPH % 7.3 % (24.0-44.0); MEAN CORPUSCULAR HEMOGLOBIN 31.9 pg (27.0-33.0); MEAN CORPUSCULAR HGB CONC 30.8 g/dl (32.0-36.5); MEAN CORPUSCULAR VOLUME 103.5 fl (80.0-96.0); MONO # 0.2 10^3/uL (0.0-0.8); MONO % 1.6 % (2.0-8.0); NEUTROPHILS # 11.9 10^3/uL (1.5-8.5); NEUTROPHILS % 88.4 % (36.0-66.0); PLATELET COUNT, AUTOMATED 386 10^3/uL (150-450); RED BLOOD COUNT 2.57 10^6/uL (4.00-5.40); WHITE BLOOD COUNT 13.5 10^3/uL (4.0-10.0)
[2022-05-30 06:47] LABS: BLOOD UREA NITROGEN 16 MG/DL (9-23); CALCIUM LEVEL 8.3 MG/DL (8.3-10.6); CARBON DIOXIDE LEVEL 24 MMOL/L (20-31); CHLORIDE LEVEL 103 MMOL/L (98-107); CREATININE FOR GFR 0.68 MG/DL (0.55-1.30); GLOMERULAR FILTRATION RATE > 60.0 (>32); GLUCOSE, FASTING 91 MG/DL (74-106); SODIUM LEVEL 135 MMOL/L (136-145)
[2022-05-30] MEDS: QUINAPRIL 20 MG TAB PO SCH (09:00)
[2022-05-30] MEDS: **hydrALAZINE HCL** 25 MG TAB PO SCH ×3 (09:00→21:00)
[2022-05-30] MEDS: OMEPRAZOLE 20MG CAP PO SCH (09:56)
[2022-05-30] MEDS: FOLIC ACID 1MG TAB PO SCH (09:57)
[2022-05-30] MEDS: ASPIRIN 81MG ENTERIC TABLET PO SCH (09:57)
[2022-05-30] MEDS: guaiFENesin ER 600 MG TAB PO SCH ×2 (09:57→21:25)
[2022-05-30] MEDS: VITAMIN B COMPLEX/VIT C CAP PO SCH (09:57)
[2022-05-30] MEDS: MELOXICAM (MOBIC) 7.5 MG TAB PO SCH (09:57)
[2022-05-30] MEDS: FERROUS GLUCONATE 324 MG TAB PO SCH (09:58)
[2022-05-30] MEDS: GABAPENTIN 100 MG CAP PO SCH ×3 (09:58→21:26)
[2022-05-30] MEDS: ENOXAPARIN 30MG/0.3ML SYRINGE (J1650 PER 10MG) SC SCH (09:59)
[2022-05-30] MEDS: ACETYLCYSTEINE 20% 4 ML VIAL (200MG/ML) INH SCH ×2 (10:27→19:47)
[2022-05-30] MEDS: SODIUM CHLORIDE HYPERTONIC 3% 15ML NEB SOL INH SCH ×4 (11:34→23:04)
[2022-05-30 14:00] VITALS: BP 127/67
[2022-05-30] MEDS: LR 1,000 ML IV SCH (16:50)
[2022-05-30 16:53] VITALS: BP 91/58
[2022-05-30] MEDS: ATORVASTATIN 20 MG TAB PO SCH (21:25)
[2022-05-30] MEDS: DOCUSATE SODIUM 100MG CAPSULE PO SCH (21:25)
[2022-05-30 22:00] VITALS: BP 101/61
[2022-05-31] MEDS: ALBUTEROL SULFATE 2.5MG/0.5ML INH NEB SOLN NEB SCH ×3 (03:13→11:30)
[2022-05-31] MEDS: SODIUM CHLORIDE HYPERTONIC 3% 15ML NEB SOL INH SCH ×3 (03:13→11:30)
[2022-05-31] MEDS: LEVOTHYROXINE 50MCG TABLET (0.05MG) PO SCH (05:20)
[2022-05-31] MEDS: LR 1,000 ML IV SCH (05:21)
[2022-05-31 05:54] LABS: BASO % 0.2 % (0.0-1.0); EOS # 0.3 10^3/uL (0.0-0.5); EOS % 2.7 % (0.0-3.0); HEMATOCRIT 24.4 % (36.0-47.0); HEMOGLOBIN 7.5 g/dl (12.0-15.5); LYMPH % 8.5 % (24.0-44.0); MEAN CORPUSCULAR HEMOGLOBIN 32.1 pg (27.0-33.0); MEAN CORPUSCULAR HGB CONC 30.7 g/dl (32.0-36.5); MEAN CORPUSCULAR VOLUME 104.3 fl (80.0-96.0); MONO # 0.4 10^3/uL (0.0-0.8); MONO % 3.4 % (2.0-8.0); NEUTROPHILS # 9.6 10^3/uL (1.5-8.5); NEUTROPHILS % 84.4 % (36.0-66.0); PLATELET COUNT, AUTOMATED 319 10^3/uL (150-450); RED BLOOD COUNT 2.34 10^6/uL (4.00-5.40); WHITE BLOOD COUNT 11.4 10^3/uL (4.0-10.0)
[2022-05-31 06:00] VITALS: BP 151/72
[2022-05-31 06:12] LABS: BLOOD UREA NITROGEN 17 MG/DL (9-23); CALCIUM LEVEL 7.9 MG/DL (8.3-10.6); CARBON DIOXIDE LEVEL 25 MMOL/L (20-31); CHLORIDE LEVEL 101 MMOL/L (98-107); CREATININE FOR GFR 0.73 MG/DL (0.55-1.30); GLOMERULAR FILTRATION RATE > 60.0 (>32); GLUCOSE, FASTING 92 MG/DL (74-106); POTASSIUM SERUM 3.9 MMOL/L (3.5-5.1); SODIUM LEVEL 134 MMOL/L (136-145)
[2022-05-31] MEDS: ACETYLCYSTEINE 20% 4 ML VIAL (200MG/ML) INH SCH (08:07)
[2022-05-31] MEDS: ENOXAPARIN 30MG/0.3ML SYRINGE (J1650 PER 10MG) SC SCH (09:28)
[2022-05-31] MEDS: VITAMIN B COMPLEX/VIT C CAP PO SCH (09:29)
[2022-05-31] MEDS: QUINAPRIL 20 MG TAB PO SCH (09:29)
[2022-05-31] MEDS: FERROUS GLUCONATE 324 MG TAB PO SCH (09:29)
[2022-05-31 09:30] VITALS: BP 142/73
[2022-05-31] MEDS: FOLIC ACID 1MG TAB PO SCH (09:30)
[2022-05-31] MEDS: **hydrALAZINE HCL** 25 MG TAB PO SCH (09:30)
[2022-05-31] MEDS: GABAPENTIN 100 MG CAP PO SCH (09:30)
[2022-05-31] MEDS: guaiFENesin ER 600 MG TAB PO SCH (09:30)
[2022-05-31] MEDS: MELOXICAM (MOBIC) 7.5 MG TAB PO SCH (09:30)
[2022-05-31] MEDS: ASPIRIN 81MG ENTERIC TABLET PO SCH (09:31)
[2022-05-31] MEDS: OMEPRAZOLE 20MG CAP PO SCH (09:31)
== END 2022-05-31 14:40 | DRG 580 ==
LOC: M ED INP 19:10 → M MS5PR 19:25
PROVIDERS: ADMIT Family Medicine; ATTEND Internal Medicine
PROC: 0KBG0ZZ Excision of Left Trunk Muscle, Open Approach (ICD-10-PCS; principal; 2022-05-27)
DX: L89.154 Pressure ulcer of sacral region, stage 4 (principal); E46 Unspecified protein-calorie malnutrition; J90 Pleural effusion, not elsewhere classified; D84.821 Immunodeficiency due to drugs; E87.1 Hypo-osmolality and hyponatremia; M06.9 Rheumatoid arthritis, unspecified; L89.122 Pressure ulcer of left upper back, stage 2; E03.9 Hypothyroidism, unspecified; Z99.3 Dependence on wheelchair; R05.3 Chronic cough; R62.7 Adult failure to thrive; D64.9 Anemia, unspecified; I10 Essential (primary) hypertension; J84.10 Pulmonary fibrosis, unspecified; R54 Age-related physical debility; J47.9 Bronchiectasis, uncomplicated; E78.5 Hyperlipidemia, unspecified; F03.90 Unspecified dementia, unspecified severity, without behavioral disturbance, psychotic disturbance, mood disturbance, and anxiety; Z74.1 Need for assistance with personal care; Z79.82 Long term (current) use of aspirin; Z79.890 Hormone replacement therapy; Z79.899 Other long term (current) drug therapy; Z88.1 Allergy status to other antibiotic agents; Z88.2 Allergy status to sulfonamides; Z86.73 Personal history of transient ischemic attack (TIA), and cerebral infarction without residual deficits; Z96.643 Presence of artificial hip joint, bilateral; Z96.652 Presence of left artificial knee joint; Z87.442 Personal history of urinary calculi

== ENCOUNTER 2022-05-31 15:05 | Inpatient (IN) | payer MEDICARE, BC ==
[~2022-05-31] VITALS: Ht 144.8 cm; Wt 60.1 kg
[~2022-05-31 15:05] MED LIST changes: +ASPI-161 PO; +DOCU100C16 PO; +FERR32TA PO; +GABA-1171 PO; +HYDR-3910 PO; +QUIN20TA48 PO; +SYNT50TA PO; +SYST1SOL4 OU; +TRAZ-252 PO
[2022-05-31 15:39] VITALS: BP 151/70
[2022-05-31] MEDS ORDERED: BISACODYL 10MG SUPP PR PRN (16:15)
[2022-05-31] MEDS: SUCRALFATE 1 GM TAB PO SCH ×2 (18:52→20:47)
[2022-05-31 20:00] VITALS: BP 132/62
[2022-05-31] MEDS: COMBIVENT RESPIMAT 100-20MCG INHALER 4GM INH SCH (20:07)
[2022-05-31] MEDS: ATORVASTATIN 20 MG TAB PO SCH (20:47)
[2022-05-31] MEDS: guaiFENesin ER 600 MG TAB PO SCH (20:47)
[2022-05-31] MEDS: GABAPENTIN 100 MG CAP PO SCH (20:47)
[2022-05-31] MEDS: ACETAMINOPHEN 500 MG TAB PO SCH (20:47)
[2022-05-31] MEDS: **hydrALAZINE HCL** 25 MG TAB PO SCH (20:47)
[2022-05-31] MEDS: REMEDY PHYTOPLEX Z-GUARD PASTE 113GM TUBE (FROM STOREROOM PRODUCT) TOP SCH (20:48)
[2022-05-31] MEDS: SENNA 8.6 MG TAB (SENOKOT) PO SCH (20:48)
[2022-05-31] MEDS: DOCUSATE SODIUM 100MG CAPSULE PO SCH (20:48)
[2022-06-01 05:08] LABS: BASO % 0.3 % (0.0-1.0); EOS # 0.5 10^3/uL (0.0-0.5); EOS % 5.3 % (0.0-3.0); HEMOGLOBIN 7.5 g/dl (12.0-15.5); LYMPH # 0.9 10^3/uL (1.5-5.0); LYMPH % 8.5 % (24.0-44.0); MEAN CORPUSCULAR HEMOGLOBIN 32.3 pg (27.0-33.0); MEAN CORPUSCULAR HGB CONC 31.3 g/dl (32.0-36.5); MEAN CORPUSCULAR VOLUME 103.4 fl (80.0-96.0); MONO # 0.5 10^3/uL (0.0-0.8); NEUTROPHILS # 8.1 10^3/uL (1.5-8.5); NEUTROPHILS % 80.2 % (36.0-66.0); PLATELET COUNT, AUTOMATED 269 10^3/uL (150-450); RED BLOOD COUNT 2.32 10^6/uL (4.00-5.40); WHITE BLOOD COUNT 10.1 10^3/uL (4.0-10.0)
[2022-06-01 05:40] LABS: ALKALINE PHOSPHATASE 76 U/L (46-116); ALT/SGPT < 9 U/L (7.0-40); AST/SGOT 19 U/L (<34); BILIRUBIN,TOTAL 0.5 MG/DL (0.3-1.2); BLOOD UREA NITROGEN 24 MG/DL (9-23); CALCIUM LEVEL 8.5 MG/DL (8.3-10.6); CARBON DIOXIDE LEVEL 25 MMOL/L (20-31); CHLORIDE LEVEL 102 MMOL/L (98-107); CREATININE FOR GFR 0.72 MG/DL (0.55-1.30); GLOMERULAR FILTRATION RATE > 60.0 (>32); GLUCOSE, FASTING 93 MG/DL (74-106); POTASSIUM SERUM 3.9 MMOL/L (3.5-5.1); SODIUM LEVEL 133 MMOL/L (136-145); TOTAL PROTEIN 4.7 G/DL (5.7-8.2)
[2022-06-01] MEDS: LEVOTHYROXINE 50MCG TABLET (0.05MG) PO SCH (05:49)
[2022-06-01 06:00] VITALS: BP 141/67
[2022-06-01] MEDS: REMEDY PHYTOPLEX Z-GUARD PASTE 113GM TUBE (FROM STOREROOM PRODUCT) TOP SCH ×3 (09:00→20:29)
[2022-06-01] MEDS: COMBIVENT RESPIMAT 100-20MCG INHALER 4GM INH SCH ×3 (09:10→20:17)
[2022-06-01] MEDS: ENOXAPARIN 30MG/0.3ML SYRINGE (J1650 PER 10MG) SC SCH (09:22)
[2022-06-01] MEDS: VITAMIN B COMPLEX/VIT C CAP PO SCH (09:23)
[2022-06-01] MEDS: FOLIC ACID 1MG TAB PO SCH (09:23)
[2022-06-01] MEDS: DOCUSATE SODIUM 100MG CAPSULE PO SCH ×2 (09:23→20:28)
[2022-06-01] MEDS: guaiFENesin ER 600 MG TAB PO SCH ×2 (09:23→20:28)
[2022-06-01] MEDS: **hydrALAZINE HCL** 25 MG TAB PO SCH ×3 (09:23→20:32)
[2022-06-01] MEDS: ASPIRIN 81MG ENTERIC TABLET PO SCH (09:23)
[2022-06-01] MEDS: OMEPRAZOLE 20MG CAP PO SCH (09:24)
[2022-06-01] MEDS: ACETAMINOPHEN 500 MG TAB PO SCH ×3 (09:24→20:28)
[2022-06-01] MEDS: SUCRALFATE 1 GM TAB PO SCH ×4 (09:25→20:28)
[2022-06-01] MEDS: MELOXICAM (MOBIC) 7.5 MG TAB PO SCH (09:25)
[2022-06-01] MEDS: FERROUS GLUCONATE 324 MG TAB PO SCH (09:25)
[2022-06-01] MEDS: QUINAPRIL 20 MG TAB PO SCH (09:25)
[2022-06-01] MEDS: GABAPENTIN 100 MG CAP PO SCH ×3 (09:26→20:28)
[2022-06-01 14:08] VITALS: BP 142/72
[2022-06-01 20:00] VITALS: BP 140/60
[2022-06-01] MEDS: ATORVASTATIN 20 MG TAB PO SCH (20:28)
[2022-06-01] MEDS: SENNA 8.6 MG TAB (SENOKOT) PO SCH (20:28)
[2022-06-02 06:00] VITALS: BP 156/70
[2022-06-02] MEDS: LEVOTHYROXINE 50MCG TABLET (0.05MG) PO SCH (06:17)
[2022-06-02 06:53] LABS: BASO % 0.2 % (0.0-1.0); EOS # 0.6 10^3/uL (0.0-0.5); EOS % 4.8 % (0.0-3.0); HEMATOCRIT 25.4 % (36.0-47.0); HEMOGLOBIN 7.7 g/dl (12.0-15.5); LYMPH # 0.7 10^3/uL (1.5-5.0); LYMPH % 5.4 % (24.0-44.0); MEAN CORPUSCULAR HEMOGLOBIN 31.6 pg (27.0-33.0); MEAN CORPUSCULAR HGB CONC 30.3 g/dl (32.0-36.5); MEAN CORPUSCULAR VOLUME 104.1 fl (80.0-96.0); MONO # 0.5 10^3/uL (0.0-0.8); MONO % 4.1 % (2.0-8.0); NEUTROPHILS # 11.2 10^3/uL (1.5-8.5); NEUTROPHILS % 84.4 % (36.0-66.0); PLATELET COUNT, AUTOMATED 251 10^3/uL (150-450); RED BLOOD COUNT 2.44 10^6/uL (4.00-5.40); WHITE BLOOD COUNT 13.3 10^3/uL (4.0-10.0)
[2022-06-02] MEDS: COMBIVENT RESPIMAT 100-20MCG INHALER 4GM INH SCH ×3 (07:24→20:26)
[2022-06-02] MEDS ORDERED: oxyCODONE 5MG TAB PO ONE (08:00)
[2022-06-02] MEDS: REMEDY PHYTOPLEX Z-GUARD PASTE 113GM TUBE (FROM STOREROOM PRODUCT) TOP SCH ×3 (09:00→21:00)
[2022-06-02] MEDS: SUCRALFATE 1 GM TAB PO SCH ×4 (09:23→20:25)
[2022-06-02] MEDS: ASPIRIN 81MG ENTERIC TABLET PO SCH (09:24)
[2022-06-02] MEDS: MELOXICAM (MOBIC) 7.5 MG TAB PO SCH (09:24)
[2022-06-02] MEDS: guaiFENesin ER 600 MG TAB PO SCH ×2 (09:26→20:26)
[2022-06-02] MEDS: VITAMIN B COMPLEX/VIT C CAP PO SCH (09:26)
[2022-06-02] MEDS: OMEPRAZOLE 20MG CAP PO SCH (09:26)
[2022-06-02] MEDS: GABAPENTIN 100 MG CAP PO SCH ×3 (09:27→20:25)
[2022-06-02] MEDS: **hydrALAZINE HCL** 25 MG TAB PO SCH ×3 (09:27→20:25)
[2022-06-02] MEDS: QUINAPRIL 20 MG TAB PO SCH (09:27)
[2022-06-02] MEDS: FERROUS GLUCONATE 324 MG TAB PO SCH (09:27)
[2022-06-02] MEDS: FOLIC ACID 1MG TAB PO SCH (09:27)
[2022-06-02] MEDS: ACETAMINOPHEN 500 MG TAB PO SCH ×3 (09:27→20:25)
[2022-06-02] MEDS: DOCUSATE SODIUM 100MG CAPSULE PO SCH ×2 (09:27→20:26)
[2022-06-02] MEDS: ENOXAPARIN 30MG/0.3ML SYRINGE (J1650 PER 10MG) SC SCH (09:28)
[2022-06-02] MEDS: METHOTREXATE 2.5MG TAB PO SCH (09:29)
[2022-06-02 10:59] LABS: ERYTHROCYTE SEDIMENTATION RATE 38 mm/hr (0-30)
[2022-06-02] MEDS: oxyCODONE 5MG TAB PO SCH (12:03)
[2022-06-02 14:00] VITALS: BP 140/80
[2022-06-02] MEDS ORDERED: ISOVUE-370 76% 100ML VIAL As Ordered ONE (14:28)
[2022-06-02] MEDS ORDERED: LevoFLOXacin 750 MG TABLET PO ONE (15:00)
[2022-06-02] MEDS: LACTOBACILLUS ACIDOPHILUS CAP (BACID) PO SCH (17:40)
[2022-06-02 20:00] VITALS: BP 149/71
[2022-06-02] MEDS: ATORVASTATIN 20 MG TAB PO SCH (20:25)
[2022-06-02] MEDS: traZODone 50 MG TAB PO PRN (20:25)
[2022-06-02] MEDS: SENNA 8.6 MG TAB (SENOKOT) PO SCH (21:00)
[2022-06-03 05:25] VITALS: BP 142/65
[2022-06-03] MEDS: LEVOTHYROXINE 50MCG TABLET (0.05MG) PO SCH (05:27)
[2022-06-03 06:41] LABS: BASO % 0.2 % (0.0-1.0); EOS # 0.4 10^3/uL (0.0-0.5); EOS % 3.3 % (0.0-3.0); HEMATOCRIT 23.8 % (36.0-47.0); HEMOGLOBIN 7.4 g/dl (12.0-15.5); LYMPH # 0.5 10^3/uL (1.5-5.0); LYMPH % 4.9 % (24.0-44.0); MEAN CORPUSCULAR HGB CONC 31.1 g/dl (32.0-36.5); MONO # 0.5 10^3/uL (0.0-0.8); MONO % 4.7 % (2.0-8.0); NEUTROPHILS # 9.3 10^3/uL (1.5-8.5); NEUTROPHILS % 86.3 % (36.0-66.0); PLATELET COUNT, AUTOMATED 216 10^3/uL (150-450); RED BLOOD COUNT 2.31 10^6/uL (4.00-5.40); WHITE BLOOD COUNT 10.7 10^3/uL (4.0-10.0)
[2022-06-03 06:48] LABS: ERYTHROCYTE SEDIMENTATION RATE 40 mm/hr (0-30)
[2022-06-03 06:54] LABS: BLOOD UREA NITROGEN 25 MG/DL (9-23); CALCIUM LEVEL 8.2 MG/DL (8.3-10.6); CARBON DIOXIDE LEVEL 24 MMOL/L (20-31); CHLORIDE LEVEL 99 MMOL/L (98-107); CREATININE FOR GFR 0.71 MG/DL (0.55-1.30); GLOMERULAR FILTRATION RATE > 60.0 (>32); GLUCOSE, FASTING 84 MG/DL (74-106); SODIUM LEVEL 130 MMOL/L (136-145)
[2022-06-03] MEDS: COMBIVENT RESPIMAT 100-20MCG INHALER 4GM INH SCH ×3 (07:22→20:05)
[2022-06-03] MEDS: ENOXAPARIN 30MG/0.3ML SYRINGE (J1650 PER 10MG) SC SCH (08:56)
[2022-06-03] MEDS: OMEPRAZOLE 20MG CAP PO SCH (08:56)
[2022-06-03] MEDS: DOCUSATE SODIUM 100MG CAPSULE PO SCH ×2 (08:56→20:12)
[2022-06-03] MEDS: VITAMIN B COMPLEX/VIT C CAP PO SCH (08:56)
[2022-06-03] MEDS: **hydrALAZINE HCL** 25 MG TAB PO SCH ×3 (08:59→20:13)
[2022-06-03] MEDS: ASPIRIN 81MG ENTERIC TABLET PO SCH (08:59)
[2022-06-03] MEDS: LACTOBACILLUS ACIDOPHILUS CAP (BACID) PO SCH ×2 (08:59→17:36)
[2022-06-03] MEDS: QUINAPRIL 20 MG TAB PO SCH (08:59)
[2022-06-03] MEDS: ACETAMINOPHEN 500 MG TAB PO SCH ×3 (08:59→20:12)
[2022-06-03] MEDS: FOLIC ACID 1MG TAB PO SCH (08:59)
[2022-06-03] MEDS: SUCRALFATE 1 GM TAB PO SCH ×4 (08:59→20:13)
[2022-06-03] MEDS: oxyCODONE 5MG TAB PO SCH ×2 (09:00→12:00)
[2022-06-03] MEDS: REMEDY PHYTOPLEX Z-GUARD PASTE 113GM TUBE (FROM STOREROOM PRODUCT) TOP SCH ×3 (09:00→20:14)
[2022-06-03] MEDS: FERROUS GLUCONATE 324 MG TAB PO SCH (09:00)
[2022-06-03] MEDS: guaiFENesin ER 600 MG TAB PO SCH ×2 (09:01→20:12)
[2022-06-03] MEDS: MELOXICAM (MOBIC) 7.5 MG TAB PO SCH (09:01)
[2022-06-03] MEDS: GABAPENTIN 100 MG CAP PO SCH ×3 (09:01→20:12)
[2022-06-03] MEDS: SANTYL OINT 30GM TOP SCH (12:25)
[2022-06-03 14:00] VITALS: BP 144/65
[2022-06-03 20:00] VITALS: BP 120/61
[2022-06-03] MEDS: SENNA 8.6 MG TAB (SENOKOT) PO SCH (20:12)
[2022-06-03] MEDS: traZODone 50 MG TAB PO PRN (20:13)
[2022-06-03] MEDS: ATORVASTATIN 20 MG TAB PO SCH (20:13)
[2022-06-03] MEDS: DIMETHICONE 2% OINTMENT(VANICREAM) 70GM TUBE TOP SCH (20:14)
[2022-06-04 06:00] VITALS: BP 126/60
[2022-06-04] MEDS: LevoFLOXacin 750 MG TABLET PO SCH (06:10)
[2022-06-04] MEDS: LEVOTHYROXINE 50MCG TABLET (0.05MG) PO SCH (06:10)
[2022-06-04 06:55] LABS: BLOOD UREA NITROGEN 24 MG/DL (9-23); CALCIUM LEVEL 8.4 MG/DL (8.3-10.6); CARBON DIOXIDE LEVEL 22 MMOL/L (20-31); CHLORIDE LEVEL 99 MMOL/L (98-107); CREATININE FOR GFR 0.79 MG/DL (0.55-1.30); GLOMERULAR FILTRATION RATE > 60.0 (>32); GLUCOSE, FASTING 78 MG/DL (74-106); POTASSIUM SERUM 3.9 MMOL/L (3.5-5.1); SODIUM LEVEL 130 MMOL/L (136-145)
[2022-06-04] MEDS: COMBIVENT RESPIMAT 100-20MCG INHALER 4GM INH SCH ×3 (09:12→20:00)
[2022-06-04] MEDS: SUCRALFATE 1 GM TAB PO SCH ×4 (09:46→20:55)
[2022-06-04] MEDS: LACTOBACILLUS ACIDOPHILUS CAP (BACID) PO SCH ×2 (09:46→16:41)
[2022-06-04] MEDS: oxyCODONE 5MG TAB PO SCH ×2 (09:47→12:00)
[2022-06-04] MEDS: ASPIRIN 81MG ENTERIC TABLET PO SCH (09:48)
[2022-06-04] MEDS: QUINAPRIL 20 MG TAB PO SCH (09:48)
[2022-06-04] MEDS: FOLIC ACID 1MG TAB PO SCH (09:48)
[2022-06-04] MEDS: DOCUSATE SODIUM 100MG CAPSULE PO SCH ×2 (09:48→20:54)
[2022-06-04] MEDS: MELOXICAM (MOBIC) 7.5 MG TAB PO SCH (09:48)
[2022-06-04] MEDS: guaiFENesin ER 600 MG TAB PO SCH ×2 (09:48→20:55)
[2022-06-04] MEDS: GABAPENTIN 100 MG CAP PO SCH ×3 (09:48→20:55)
[2022-06-04] MEDS: FERROUS GLUCONATE 324 MG TAB PO SCH (09:48)
[2022-06-04] MEDS: ACETAMINOPHEN 500 MG TAB PO SCH ×3 (09:49→20:55)
[2022-06-04] MEDS: ENOXAPARIN 30MG/0.3ML SYRINGE (J1650 PER 10MG) SC SCH (09:49)
[2022-06-04] MEDS: OMEPRAZOLE 20MG CAP PO SCH (09:49)
[2022-06-04] MEDS: VITAMIN B COMPLEX/VIT C CAP PO SCH (09:49)
[2022-06-04] MEDS: **hydrALAZINE HCL** 25 MG TAB PO SCH ×3 (09:50→20:55)
[2022-06-04] MEDS: DIMETHICONE 2% OINTMENT(VANICREAM) 70GM TUBE TOP SCH ×2 (09:51→20:57)
[2022-06-04] MEDS: REMEDY PHYTOPLEX Z-GUARD PASTE 113GM TUBE (FROM STOREROOM PRODUCT) TOP SCH ×3 (13:51→20:57)
[2022-06-04] MEDS: SANTYL OINT 30GM TOP SCH (13:51)
[2022-06-04 14:00] VITALS: BP 126/65
[2022-06-04 20:00] VITALS: BP 146/68
[2022-06-04] MEDS: ATORVASTATIN 20 MG TAB PO SCH (20:54)
[2022-06-04] MEDS: SENNA 8.6 MG TAB (SENOKOT) PO SCH (20:54)
[2022-06-04] MEDS: traZODone 50 MG TAB PO PRN (20:55)
[2022-06-05] MEDS: LEVOTHYROXINE 50MCG TABLET (0.05MG) PO SCH (05:56)
[2022-06-05 06:00] VITALS: BP 132/54
[2022-06-05] MEDS: SUCRALFATE 1 GM TAB PO SCH ×4 (08:30→20:59)
[2022-06-05] MEDS: oxyCODONE 5MG TAB PO SCH ×2 (08:31→12:00)
[2022-06-05] MEDS: LACTOBACILLUS ACIDOPHILUS CAP (BACID) PO SCH ×2 (08:31→17:45)
[2022-06-05] MEDS: QUINAPRIL 20 MG TAB PO SCH (08:31)
[2022-06-05] MEDS: GABAPENTIN 100 MG CAP PO SCH ×3 (08:32→20:59)
[2022-06-05] MEDS: ASPIRIN 81MG ENTERIC TABLET PO SCH (08:32)
[2022-06-05] MEDS: FOLIC ACID 1MG TAB PO SCH (08:32)
[2022-06-05] MEDS: **hydrALAZINE HCL** 25 MG TAB PO SCH ×3 (08:32→20:59)
[2022-06-05] MEDS: guaiFENesin ER 600 MG TAB PO SCH ×2 (08:32→21:00)
[2022-06-05] MEDS: FERROUS GLUCONATE 324 MG TAB PO SCH (08:32)
[2022-06-05] MEDS: MELOXICAM (MOBIC) 7.5 MG TAB PO SCH (08:32)
[2022-06-05] MEDS: DOCUSATE SODIUM 100MG CAPSULE PO SCH ×2 (08:32→21:00)
[2022-06-05] MEDS: VITAMIN B COMPLEX/VIT C CAP PO SCH (08:33)
[2022-06-05] MEDS: OMEPRAZOLE 20MG CAP PO SCH (08:33)
[2022-06-05] MEDS: ENOXAPARIN 30MG/0.3ML SYRINGE (J1650 PER 10MG) SC SCH (08:33)
[2022-06-05] MEDS: ACETAMINOPHEN 500 MG TAB PO SCH ×3 (08:33→20:59)
[2022-06-05] MEDS: REMEDY PHYTOPLEX Z-GUARD PASTE 113GM TUBE (FROM STOREROOM PRODUCT) TOP SCH ×3 (08:34→21:00)
[2022-06-05] MEDS: DIMETHICONE 2% OINTMENT(VANICREAM) 70GM TUBE TOP SCH ×2 (08:34→21:01)
[2022-06-05] MEDS: COMBIVENT RESPIMAT 100-20MCG INHALER 4GM INH SCH ×3 (09:20→20:37)
[2022-06-05 13:54] VITALS: BP 130/60
[2022-06-05] MEDS: SANTYL OINT 30GM TOP SCH (15:49)
[2022-06-05 20:00] VITALS: BP 132/60
[2022-06-05] MEDS: ATORVASTATIN 20 MG TAB PO SCH (20:59)
[2022-06-05] MEDS: SENNA 8.6 MG TAB (SENOKOT) PO SCH (20:59)
[2022-06-06] VITALS (10 sets, daily range): BP systolic 120–177; BP diastolic 53–80
[2022-06-06] MEDS: LevoFLOXacin 750 MG TABLET PO SCH (05:49)
[2022-06-06] MEDS: LEVOTHYROXINE 50MCG TABLET (0.05MG) PO SCH (05:49)
[2022-06-06 07:29] LABS: BASO % 0.2 % (0.0-1.0); EOS # 0.3 10^3/uL (0.0-0.5); EOS % 5.2 % (0.0-3.0); HEMATOCRIT 22.2 % (36.0-47.0); LYMPH # 0.8 10^3/uL (1.5-5.0); LYMPH % 14.9 % (24.0-44.0); MEAN CORPUSCULAR HEMOGLOBIN 31.9 pg (27.0-33.0); MEAN CORPUSCULAR HGB CONC 31.1 g/dl (32.0-36.5); MEAN CORPUSCULAR VOLUME 102.8 fl (80.0-96.0); MONO # 0.2 10^3/uL (0.0-0.8); MONO % 3.7 % (2.0-8.0); NEUTROPHILS # 4.1 10^3/uL (1.5-8.5); NEUTROPHILS % 75.6 % (36.0-66.0); PLATELET COUNT, AUTOMATED 228 10^3/uL (150-450); RED BLOOD COUNT 2.16 10^6/uL (4.00-5.40); WHITE BLOOD COUNT 5.4 10^3/uL (4.0-10.0)
[2022-06-06 07:33] LABS: HEMOGLOBIN 6.9 g/dl (12.0-15.5)
[2022-06-06 08:16] LABS: BLOOD UREA NITROGEN 22 MG/DL (9-23); CALCIUM LEVEL 7.8 MG/DL (8.3-10.6); CARBON DIOXIDE LEVEL 24 MMOL/L (20-31); CHLORIDE LEVEL 101 MMOL/L (98-107); GLOMERULAR FILTRATION RATE > 60.0 (>32); GLUCOSE, FASTING 82 MG/DL (74-106); POTASSIUM SERUM 3.7 MMOL/L (3.5-5.1); SODIUM LEVEL 133 MMOL/L (136-145)
[2022-06-06] MEDS: COMBIVENT RESPIMAT 100-20MCG INHALER 4GM INH SCH ×3 (08:39→19:21)
[2022-06-06] MEDS: FOLIC ACID 1MG TAB PO SCH (10:22)
[2022-06-06] MEDS: GABAPENTIN 100 MG CAP PO SCH ×3 (10:22→20:44)
[2022-06-06] MEDS: FERROUS GLUCONATE 324 MG TAB PO SCH (10:22)
[2022-06-06] MEDS: LACTOBACILLUS ACIDOPHILUS CAP (BACID) PO SCH ×2 (10:22→16:52)
[2022-06-06] MEDS: QUINAPRIL 20 MG TAB PO SCH (10:23)
[2022-06-06] MEDS: ASPIRIN 81MG ENTERIC TABLET PO SCH (10:23)
[2022-06-06] MEDS: SUCRALFATE 1 GM TAB PO SCH ×4 (10:23→20:41)
[2022-06-06] MEDS: DOCUSATE SODIUM 100MG CAPSULE PO SCH ×2 (10:23→20:41)
[2022-06-06] MEDS: MELOXICAM (MOBIC) 7.5 MG TAB PO SCH (10:23)
[2022-06-06] MEDS: OMEPRAZOLE 20MG CAP PO SCH (10:23)
[2022-06-06] MEDS: VITAMIN B COMPLEX/VIT C CAP PO SCH (10:23)
[2022-06-06] MEDS: guaiFENesin ER 600 MG TAB PO SCH ×2 (10:23→20:41)
[2022-06-06] MEDS: **hydrALAZINE HCL** 25 MG TAB PO SCH ×3 (10:24→20:41)
[2022-06-06] MEDS ORDERED: diphenhydrAMINE 25MG CAP PO ONE (10:25)
[2022-06-06] MEDS: ENOXAPARIN 30MG/0.3ML SYRINGE (J1650 PER 10MG) SC SCH (10:25)
[2022-06-06] MEDS ORDERED: ACETAMINOPHEN TAB 650MG DOSE (2X325MG) PO ONE (10:25)
[2022-06-06] MEDS: ACETAMINOPHEN 500 MG TAB PO SCH ×3 (10:25→20:42)
[2022-06-06] MEDS: oxyCODONE 5MG TAB PO SCH ×3 (10:25→16:58)
[2022-06-06] MEDS: REMEDY PHYTOPLEX Z-GUARD PASTE 113GM TUBE (FROM STOREROOM PRODUCT) TOP SCH ×3 (10:26→20:44)
[2022-06-06] MEDS: DIMETHICONE 2% OINTMENT(VANICREAM) 70GM TUBE TOP SCH ×2 (10:26→20:45)
[2022-06-06] MEDS: SANTYL OINT 30GM TOP SCH (10:27)
[2022-06-06] MEDS: ATORVASTATIN 20 MG TAB PO SCH (20:41)
[2022-06-06] MEDS: SENNA 8.6 MG TAB (SENOKOT) PO SCH (20:41)
[2022-06-07] MEDS: LEVOTHYROXINE 50MCG TABLET (0.05MG) PO SCH (05:15)
[2022-06-07 05:23] VITALS: BP 136/67
[2022-06-07] MEDS: COMBIVENT RESPIMAT 100-20MCG INHALER 4GM INH SCH ×3 (07:13→19:53)
[2022-06-07 08:48] LABS: BASO % 0.4 % (0.0-1.0); EOS # 0.3 10^3/uL (0.0-0.5); EOS % 4.6 % (0.0-3.0); HEMATOCRIT 35.4 % (36.0-47.0); HEMOGLOBIN 11.8 g/dl (12.0-15.5); LYMPH # 0.7 10^3/uL (1.5-5.0); LYMPH % 11.9 % (24.0-44.0); MEAN CORPUSCULAR HEMOGLOBIN 31.4 pg (27.0-33.0); MEAN CORPUSCULAR HGB CONC 33.3 g/dl (32.0-36.5); MEAN CORPUSCULAR VOLUME 94.1 fl (80.0-96.0); MONO # 0.3 10^3/uL (0.0-0.8); MONO % 5.5 % (2.0-8.0); NEUTROPHILS # 4.2 10^3/uL (1.5-8.5); NEUTROPHILS % 76.9 % (36.0-66.0); PLATELET COUNT, AUTOMATED 206 10^3/uL (150-450); RED BLOOD COUNT 3.76 10^6/uL (4.00-5.40); WHITE BLOOD COUNT 5.4 10^3/uL (4.0-10.0)
[2022-06-07] MEDS: ENOXAPARIN 30MG/0.3ML SYRINGE (J1650 PER 10MG) SC SCH (09:32)
[2022-06-07] MEDS: FOLIC ACID 1MG TAB PO SCH (09:33)
[2022-06-07] MEDS: VITAMIN B COMPLEX/VIT C CAP PO SCH (09:33)
[2022-06-07] MEDS: QUINAPRIL 20 MG TAB PO SCH (09:33)
[2022-06-07] MEDS: LACTOBACILLUS ACIDOPHILUS CAP (BACID) PO SCH ×2 (09:33→17:14)
[2022-06-07] MEDS: OMEPRAZOLE 20MG CAP PO SCH (09:33)
[2022-06-07] MEDS: SUCRALFATE 1 GM TAB PO SCH ×4 (09:33→21:51)
[2022-06-07] MEDS: MELOXICAM (MOBIC) 7.5 MG TAB PO SCH (09:33)
[2022-06-07] MEDS: DOCUSATE SODIUM 100MG CAPSULE PO SCH ×2 (09:33→21:52)
[2022-06-07] MEDS: **hydrALAZINE HCL** 25 MG TAB PO SCH ×3 (09:33→21:52)
[2022-06-07] MEDS: ASPIRIN 81MG ENTERIC TABLET PO SCH (09:33)
[2022-06-07] MEDS: guaiFENesin ER 600 MG TAB PO SCH ×2 (09:34→21:52)
[2022-06-07] MEDS: FERROUS GLUCONATE 324 MG TAB PO SCH (09:34)
[2022-06-07] MEDS: ACETAMINOPHEN 500 MG TAB PO SCH ×3 (09:34→21:00)
[2022-06-07] MEDS: GABAPENTIN 100 MG CAP PO SCH ×3 (09:34→21:52)
[2022-06-07] MEDS: oxyCODONE 5MG TAB PO SCH ×2 (09:34→13:30)
[2022-06-07] MEDS: SANTYL OINT 30GM TOP SCH (09:35)
[2022-06-07] MEDS: REMEDY PHYTOPLEX Z-GUARD PASTE 113GM TUBE (FROM STOREROOM PRODUCT) TOP SCH ×3 (09:35→21:53)
[2022-06-07] MEDS: DIMETHICONE 2% OINTMENT(VANICREAM) 70GM TUBE TOP SCH ×2 (09:36→21:53)
[2022-06-07 14:00] VITALS: BP 140/70
[2022-06-07 20:00] VITALS: BP 160/84
[2022-06-07] MEDS: SENNA 8.6 MG TAB (SENOKOT) PO SCH (21:00)
[2022-06-07] MEDS: ATORVASTATIN 20 MG TAB PO SCH (21:52)
[2022-06-08] MEDS: LevoFLOXacin 750 MG TABLET PO SCH (05:53)
[2022-06-08] MEDS: LEVOTHYROXINE 50MCG TABLET (0.05MG) PO SCH (05:53)
[2022-06-08 06:00] VITALS: BP 158/70
[2022-06-08 06:23] LABS: BASO % 0.4 % (0.0-1.0); EOS # 0.4 10^3/uL (0.0-0.5); EOS % 7.3 % (0.0-3.0); HEMATOCRIT 33.3 % (36.0-47.0); LYMPH # 0.7 10^3/uL (1.5-5.0); LYMPH % 13.5 % (24.0-44.0); MEAN CORPUSCULAR HEMOGLOBIN 31.5 pg (27.0-33.0); MEAN CORPUSCULAR VOLUME 95.4 fl (80.0-96.0); MONO # 0.3 10^3/uL (0.0-0.8); MONO % 6.8 % (2.0-8.0); NEUTROPHILS # 3.4 10^3/uL (1.5-8.5); NEUTROPHILS % 71.2 % (36.0-66.0); PLATELET COUNT, AUTOMATED 175 10^3/uL (150-450); RED BLOOD COUNT 3.49 10^6/uL (4.00-5.40); WHITE BLOOD COUNT 4.8 10^3/uL (4.0-10.0)
[2022-06-08 06:49] LABS: BLOOD UREA NITROGEN 15 MG/DL (9-23); CALCIUM LEVEL 8.1 MG/DL (8.3-10.6); CARBON DIOXIDE LEVEL 24 MMOL/L (20-31); CHLORIDE LEVEL 103 MMOL/L (98-107); CREATININE FOR GFR 0.57 MG/DL (0.55-1.30); GLOMERULAR FILTRATION RATE > 60.0 (>32); GLUCOSE, FASTING 80 MG/DL (74-106); POTASSIUM SERUM 3.4 MMOL/L (3.5-5.1); SODIUM LEVEL 135 MMOL/L (136-145)
[2022-06-08] MEDS: oxyCODONE 5MG TAB PO SCH ×2 (08:00→11:44)
[2022-06-08] MEDS: ASPIRIN 81MG ENTERIC TABLET PO SCH (08:48)
[2022-06-08] MEDS: GABAPENTIN 100 MG CAP PO SCH ×3 (08:49→21:43)
[2022-06-08] MEDS: DOCUSATE SODIUM 100MG CAPSULE PO SCH ×2 (08:49→21:43)
[2022-06-08] MEDS: LACTOBACILLUS ACIDOPHILUS CAP (BACID) PO SCH ×2 (08:49→17:36)
[2022-06-08] MEDS: SUCRALFATE 1 GM TAB PO SCH ×4 (08:49→21:42)
[2022-06-08] MEDS: ENOXAPARIN 30MG/0.3ML SYRINGE (J1650 PER 10MG) SC SCH (08:49)
[2022-06-08] MEDS: guaiFENesin ER 600 MG TAB PO SCH ×2 (08:49→21:43)
[2022-06-08] MEDS: FERROUS GLUCONATE 324 MG TAB PO SCH (08:49)
[2022-06-08] MEDS: MELOXICAM (MOBIC) 7.5 MG TAB PO SCH (08:50)
[2022-06-08] MEDS: FOLIC ACID 1MG TAB PO SCH (08:50)
[2022-06-08] MEDS: OMEPRAZOLE 20MG CAP PO SCH (08:50)
[2022-06-08] MEDS: **hydrALAZINE HCL** 25 MG TAB PO SCH (08:55)
[2022-06-08] MEDS: QUINAPRIL 20 MG TAB PO SCH (08:55)
[2022-06-08] MEDS: ACETAMINOPHEN 500 MG TAB PO SCH ×3 (08:56→21:43)
[2022-06-08] MEDS: REMEDY PHYTOPLEX Z-GUARD PASTE 113GM TUBE (FROM STOREROOM PRODUCT) TOP SCH ×3 (08:57→21:44)
[2022-06-08] MEDS: VITAMIN B COMPLEX/VIT C CAP PO SCH (08:58)
[2022-06-08] MEDS: SANTYL OINT 30GM TOP SCH (08:58)
[2022-06-08] MEDS: DIMETHICONE 2% OINTMENT(VANICREAM) 70GM TUBE TOP SCH ×2 (08:58→21:44)
[2022-06-08] MEDS ORDERED: POTASSIUM CHLORIDE 10MEQ SR TABLET PO ONE (09:00)
[2022-06-08] MEDS: COMBIVENT RESPIMAT 100-20MCG INHALER 4GM INH SCH ×3 (09:09→19:56)
[2022-06-08 09:21] LABS: MAGNESIUM LEVEL 1.5 MG/DL (1.8-2.4)
[2022-06-08] MEDS ORDERED: MAG SULF 1GM/100ML (MAG RUN) 1 GM in IV 1 EA IV ONE (09:25)
[2022-06-08] MEDS: MAGNESIUM OXIDE 400MG TAB (MAG-OX) PO SCH ×2 (11:44→21:43)
[2022-06-08 14:00] VITALS: BP 131/59
[2022-06-08] MEDS: **hydrALAZINE** 50 MG TAB PO SCH ×2 (17:36→21:42)
[2022-06-08 20:00] VITALS: BP 150/76
[2022-06-08] MEDS: SENNA 8.6 MG TAB (SENOKOT) PO SCH (21:42)
[2022-06-08] MEDS: ATORVASTATIN 20 MG TAB PO SCH (21:43)
[2022-06-09 06:00] VITALS: BP 158/68
[2022-06-09] MEDS: LEVOTHYROXINE 50MCG TABLET (0.05MG) PO SCH (06:03)
[2022-06-09 06:51] LABS: BLOOD UREA NITROGEN 18 MG/DL (9-23); CALCIUM LEVEL 7.9 MG/DL (8.3-10.6); CARBON DIOXIDE LEVEL 25 MMOL/L (20-31); CHLORIDE LEVEL 102 MMOL/L (98-107); CREATININE FOR GFR 0.61 MG/DL (0.55-1.30); GLOMERULAR FILTRATION RATE > 60.0 (>32); GLUCOSE, FASTING 92 MG/DL (74-106); MAGNESIUM LEVEL 1.7 MG/DL (1.8-2.4); POTASSIUM SERUM 4.5 MMOL/L (3.5-5.1); SODIUM LEVEL 132 MMOL/L (136-145)
[2022-06-09] MEDS: COMBIVENT RESPIMAT 100-20MCG INHALER 4GM INH SCH ×3 (07:13→19:57)
[2022-06-09] MEDS: FOLIC ACID 1MG TAB PO SCH (09:56)
[2022-06-09] MEDS: OMEPRAZOLE 20MG CAP PO SCH (09:56)
[2022-06-09] MEDS: GABAPENTIN 100 MG CAP PO SCH ×3 (09:56→21:35)
[2022-06-09] MEDS: LACTOBACILLUS ACIDOPHILUS CAP (BACID) PO SCH ×2 (09:57→16:54)
[2022-06-09] MEDS: guaiFENesin ER 600 MG TAB PO SCH ×2 (09:57→21:36)
[2022-06-09] MEDS: ASPIRIN 81MG ENTERIC TABLET PO SCH (09:57)
[2022-06-09] MEDS: QUINAPRIL 20 MG TAB PO SCH (10:00)
[2022-06-09] MEDS: **hydrALAZINE** 50 MG TAB PO SCH ×3 (10:00→21:36)
[2022-06-09] MEDS: VITAMIN B COMPLEX/VIT C CAP PO SCH (10:00)
[2022-06-09] MEDS: MAGNESIUM OXIDE 400MG TAB (MAG-OX) PO SCH ×2 (10:00→21:33)
[2022-06-09] MEDS: FERROUS GLUCONATE 324 MG TAB PO SCH (10:01)
[2022-06-09] MEDS: SUCRALFATE 1 GM TAB PO SCH ×4 (10:01→21:33)
[2022-06-09] MEDS: MELOXICAM (MOBIC) 7.5 MG TAB PO SCH (10:01)
[2022-06-09] MEDS: METHOTREXATE 2.5MG TAB PO SCH (10:02)
[2022-06-09] MEDS: REMEDY PHYTOPLEX Z-GUARD PASTE 113GM TUBE (FROM STOREROOM PRODUCT) TOP SCH ×3 (10:03→21:37)
[2022-06-09] MEDS: ENOXAPARIN 30MG/0.3ML SYRINGE (J1650 PER 10MG) SC SCH (10:03)
[2022-06-09] MEDS: DIMETHICONE 2% OINTMENT(VANICREAM) 70GM TUBE TOP SCH ×2 (10:04→21:38)
[2022-06-09] MEDS: SANTYL OINT 30GM TOP SCH (10:04)
[2022-06-09] MEDS: oxyCODONE 5MG TAB PO SCH ×2 (10:05→13:33)
[2022-06-09] MEDS: DOCUSATE SODIUM 100MG CAPSULE PO SCH ×2 (10:07→21:36)
[2022-06-09] MEDS: ACETAMINOPHEN 500 MG TAB PO SCH ×3 (10:08→21:34)
[2022-06-09 14:00] VITALS: BP 153/73
[2022-06-09 20:00] VITALS: BP 162/70
[2022-06-09] MEDS: traZODone 25MG PER 1/2 TABLET PO SCH (21:35)
[2022-06-09] MEDS: SENNA 8.6 MG TAB (SENOKOT) PO SCH (21:35)
[2022-06-09] MEDS: ATORVASTATIN 20 MG TAB PO SCH (21:35)
[2022-06-10] MEDS: LevoFLOXacin 750 MG TABLET PO SCH (05:37)
[2022-06-10] MEDS: LEVOTHYROXINE 50MCG TABLET (0.05MG) PO SCH (05:37)
[2022-06-10 06:00] VITALS: BP 120/58
[2022-06-10] MEDS: COMBIVENT RESPIMAT 100-20MCG INHALER 4GM INH SCH ×3 (07:36→19:27)
[2022-06-10] MEDS: LACTOBACILLUS ACIDOPHILUS CAP (BACID) PO SCH ×2 (08:27→17:33)
[2022-06-10] MEDS: GABAPENTIN 100 MG CAP PO SCH ×3 (08:27→21:00)
[2022-06-10] MEDS: VITAMIN B COMPLEX/VIT C CAP PO SCH (08:27)
[2022-06-10] MEDS: ASPIRIN 81MG ENTERIC TABLET PO SCH (08:27)
[2022-06-10] MEDS: SUCRALFATE 1 GM TAB PO SCH ×4 (08:27→21:00)
[2022-06-10] MEDS: MAGNESIUM OXIDE 400MG TAB (MAG-OX) PO SCH ×2 (08:28→21:02)
[2022-06-10] MEDS: FERROUS GLUCONATE 324 MG TAB PO SCH (08:28)
[2022-06-10] MEDS: MELOXICAM (MOBIC) 7.5 MG TAB PO SCH (08:28)
[2022-06-10] MEDS: DOCUSATE SODIUM 100MG CAPSULE PO SCH ×2 (08:28→21:00)
[2022-06-10] MEDS: guaiFENesin ER 600 MG TAB PO SCH ×2 (08:28→21:00)
[2022-06-10] MEDS: OMEPRAZOLE 20MG CAP PO SCH (08:29)
[2022-06-10] MEDS: FOLIC ACID 1MG TAB PO SCH (08:29)
[2022-06-10] MEDS: QUINAPRIL 20 MG TAB PO SCH (08:30)
[2022-06-10] MEDS: **hydrALAZINE** 50 MG TAB PO SCH ×3 (08:30→21:01)
[2022-06-10] MEDS: ACETAMINOPHEN 500 MG TAB PO SCH ×3 (08:31→21:01)
[2022-06-10] MEDS: oxyCODONE 5MG TAB PO SCH ×2 (08:31→13:06)
[2022-06-10] MEDS: DIMETHICONE 2% OINTMENT(VANICREAM) 70GM TUBE TOP SCH ×2 (08:32→21:02)
[2022-06-10] MEDS: SANTYL OINT 30GM TOP SCH (08:32)
[2022-06-10] MEDS: REMEDY PHYTOPLEX Z-GUARD PASTE 113GM TUBE (FROM STOREROOM PRODUCT) TOP SCH ×3 (08:32→21:02)
[2022-06-10] MEDS: ENOXAPARIN 30MG/0.3ML SYRINGE (J1650 PER 10MG) SC SCH (08:33)
[2022-06-10] MEDS ORDERED: ONDANSETRON 4MG ORAL DISINTEGRATING TAB PO PRN (10:40)
[2022-06-10 14:00] VITALS: BP 155/73
[2022-06-10 20:00] VITALS: BP 140/67
[2022-06-10] MEDS: traZODone 25MG PER 1/2 TABLET PO SCH (21:00)
[2022-06-10] MEDS: ATORVASTATIN 20 MG TAB PO SCH (21:01)
[2022-06-10] MEDS: SENNA 8.6 MG TAB (SENOKOT) PO SCH (21:01)
[2022-06-11 06:00] VITALS: BP 130/80
[2022-06-11] MEDS: LEVOTHYROXINE 50MCG TABLET (0.05MG) PO SCH (06:25)
[2022-06-11] MEDS: COMBIVENT RESPIMAT 100-20MCG INHALER 4GM INH SCH ×3 (07:47→19:30)
[2022-06-11] MEDS: oxyCODONE 5MG TAB PO SCH ×2 (08:00→12:00)
[2022-06-11] MEDS: OMEPRAZOLE 20MG CAP PO SCH (08:44)
[2022-06-11] MEDS: QUINAPRIL 20 MG TAB PO SCH (08:46)
[2022-06-11] MEDS: MELOXICAM (MOBIC) 7.5 MG TAB PO SCH (08:46)
[2022-06-11] MEDS: guaiFENesin ER 600 MG TAB PO SCH ×2 (08:47→21:04)
[2022-06-11] MEDS: VITAMIN B COMPLEX/VIT C CAP PO SCH (08:47)
[2022-06-11] MEDS: FERROUS GLUCONATE 324 MG TAB PO SCH (08:47)
[2022-06-11] MEDS: MAGNESIUM OXIDE 400MG TAB (MAG-OX) PO SCH ×2 (08:47→21:04)
[2022-06-11] MEDS: GABAPENTIN 100 MG CAP PO SCH ×3 (08:47→21:04)
[2022-06-11] MEDS: SUCRALFATE 1 GM TAB PO SCH ×4 (08:47→21:04)
[2022-06-11] MEDS: LACTOBACILLUS ACIDOPHILUS CAP (BACID) PO SCH ×2 (08:47→18:19)
[2022-06-11] MEDS: FOLIC ACID 1MG TAB PO SCH (08:47)
[2022-06-11] MEDS: ASPIRIN 81MG ENTERIC TABLET PO SCH (08:47)
[2022-06-11] MEDS: DOCUSATE SODIUM 100MG CAPSULE PO SCH ×2 (08:47→21:00)
[2022-06-11] MEDS: ACETAMINOPHEN 500 MG TAB PO SCH ×3 (08:48→21:05)
[2022-06-11] MEDS: ENOXAPARIN 30MG/0.3ML SYRINGE (J1650 PER 10MG) SC SCH (08:48)
[2022-06-11] MEDS: **hydrALAZINE** 50 MG TAB PO SCH ×3 (08:48→21:04)
[2022-06-11] MEDS: DIMETHICONE 2% OINTMENT(VANICREAM) 70GM TUBE TOP SCH ×2 (08:49→21:07)
[2022-06-11] MEDS: REMEDY PHYTOPLEX Z-GUARD PASTE 113GM TUBE (FROM STOREROOM PRODUCT) TOP SCH ×3 (08:49→21:06)
[2022-06-11 14:00] VITALS: BP 145/71
[2022-06-11 20:00] VITALS: BP 141/62
[2022-06-11] MEDS: SENNA 8.6 MG TAB (SENOKOT) PO SCH (21:00)
[2022-06-11] MEDS: ATORVASTATIN 20 MG TAB PO SCH (21:04)
[2022-06-11] MEDS: traZODone 25MG PER 1/2 TABLET PO SCH (21:04)
[2022-06-12] MEDS: LEVOTHYROXINE 50MCG TABLET (0.05MG) PO SCH (05:13)
[2022-06-12] MEDS: LevoFLOXacin 750 MG TABLET PO SCH (05:13)
[2022-06-12 06:00] VITALS: BP 142/64
[2022-06-12] MEDS: COMBIVENT RESPIMAT 100-20MCG INHALER 4GM INH SCH ×3 (07:38→19:55)
[2022-06-12] MEDS: oxyCODONE 5MG TAB PO SCH ×2 (08:00→12:00)
[2022-06-12] MEDS: DOCUSATE SODIUM 100MG CAPSULE PO SCH ×2 (09:00→20:36)
[2022-06-12] MEDS: LACTOBACILLUS ACIDOPHILUS CAP (BACID) PO SCH ×2 (09:14→16:38)
[2022-06-12] MEDS: SUCRALFATE 1 GM TAB PO SCH ×4 (09:14→20:37)
[2022-06-12] MEDS: OMEPRAZOLE 20MG CAP PO SCH (09:14)
[2022-06-12] MEDS: FOLIC ACID 1MG TAB PO SCH (09:14)
[2022-06-12] MEDS: FERROUS GLUCONATE 324 MG TAB PO SCH (09:14)
[2022-06-12] MEDS: guaiFENesin ER 600 MG TAB PO SCH ×2 (09:15→20:37)
[2022-06-12] MEDS: VITAMIN B COMPLEX/VIT C CAP PO SCH (09:15)
[2022-06-12] MEDS: MELOXICAM (MOBIC) 7.5 MG TAB PO SCH (09:15)
[2022-06-12] MEDS: ACETAMINOPHEN 500 MG TAB PO SCH ×3 (09:15→20:37)
[2022-06-12] MEDS: GABAPENTIN 100 MG CAP PO SCH ×3 (09:15→20:37)
[2022-06-12] MEDS: QUINAPRIL 20 MG TAB PO SCH (09:15)
[2022-06-12] MEDS: ASPIRIN 81MG ENTERIC TABLET PO SCH (09:15)
[2022-06-12] MEDS: MAGNESIUM OXIDE 400MG TAB (MAG-OX) PO SCH ×2 (09:15→20:37)
[2022-06-12] MEDS: DIMETHICONE 2% OINTMENT(VANICREAM) 70GM TUBE TOP SCH ×2 (09:16→20:38)
[2022-06-12] MEDS: ENOXAPARIN 30MG/0.3ML SYRINGE (J1650 PER 10MG) SC SCH (09:16)
[2022-06-12] MEDS: REMEDY PHYTOPLEX Z-GUARD PASTE 113GM TUBE (FROM STOREROOM PRODUCT) TOP SCH ×3 (09:16→20:38)
[2022-06-12] MEDS: **hydrALAZINE** 50 MG TAB PO SCH ×3 (09:16→20:36)
[2022-06-12 14:00] VITALS: BP 128/60
[2022-06-12 20:00] VITALS: BP 149/66
[2022-06-12] MEDS: traZODone 25MG PER 1/2 TABLET PO SCH (20:36)
[2022-06-12] MEDS: SENNA 8.6 MG TAB (SENOKOT) PO SCH (20:36)
[2022-06-12] MEDS: ATORVASTATIN 20 MG TAB PO SCH (20:37)
[2022-06-13 05:33] VITALS: BP 158/76
[2022-06-13] MEDS: LEVOTHYROXINE 50MCG TABLET (0.05MG) PO SCH (06:06)
[2022-06-13] MEDS: COMBIVENT RESPIMAT 100-20MCG INHALER 4GM INH SCH ×3 (07:38→19:45)
[2022-06-13] MEDS: ACETAMINOPHEN 500 MG TAB PO SCH ×3 (09:00→20:26)
[2022-06-13] MEDS: GABAPENTIN 100 MG CAP PO SCH ×3 (10:23→20:25)
[2022-06-13] MEDS: DOCUSATE SODIUM 100MG CAPSULE PO SCH ×2 (10:23→20:25)
[2022-06-13] MEDS: MELOXICAM (MOBIC) 7.5 MG TAB PO SCH (10:23)
[2022-06-13] MEDS: QUINAPRIL 20 MG TAB PO SCH (10:23)
[2022-06-13] MEDS: VITAMIN B COMPLEX/VIT C CAP PO SCH (10:24)
[2022-06-13] MEDS: OMEPRAZOLE 20MG CAP PO SCH (10:24)
[2022-06-13] MEDS: FOLIC ACID 1MG TAB PO SCH (10:24)
[2022-06-13] MEDS: MAGNESIUM OXIDE 400MG TAB (MAG-OX) PO SCH ×2 (10:24→20:26)
[2022-06-13] MEDS: FERROUS GLUCONATE 324 MG TAB PO SCH (10:25)
[2022-06-13] MEDS: oxyCODONE 5MG TAB PO SCH ×2 (10:25→12:00)
[2022-06-13] MEDS: ASPIRIN 81MG ENTERIC TABLET PO SCH (10:25)
[2022-06-13] MEDS: **hydrALAZINE** 50 MG TAB PO SCH ×3 (10:25→20:26)
[2022-06-13] MEDS: guaiFENesin ER 600 MG TAB PO SCH ×2 (10:25→20:25)
[2022-06-13] MEDS: SUCRALFATE 1 GM TAB PO SCH ×4 (10:25→20:26)
[2022-06-13] MEDS: LACTOBACILLUS ACIDOPHILUS CAP (BACID) PO SCH ×2 (10:30→16:24)
[2022-06-13] MEDS: REMEDY PHYTOPLEX Z-GUARD PASTE 113GM TUBE (FROM STOREROOM PRODUCT) TOP SCH ×3 (10:31→20:27)
[2022-06-13] MEDS: ENOXAPARIN 30MG/0.3ML SYRINGE (J1650 PER 10MG) SC SCH (10:31)
[2022-06-13] MEDS: DIMETHICONE 2% OINTMENT(VANICREAM) 70GM TUBE TOP SCH ×2 (10:31→20:27)
[2022-06-13 14:00] VITALS: BP 155/77
[2022-06-13 20:00] VITALS: BP 121/58
[2022-06-13] MEDS: traZODone 25MG PER 1/2 TABLET PO SCH (20:25)
[2022-06-13] MEDS: SENNA 8.6 MG TAB (SENOKOT) PO SCH (20:25)
[2022-06-13] MEDS: ATORVASTATIN 20 MG TAB PO SCH (20:25)
[2022-06-14] MEDS: LEVOTHYROXINE 50MCG TABLET (0.05MG) PO SCH (05:21)
[2022-06-14] MEDS: LevoFLOXacin 750 MG TABLET PO SCH (05:21)
[2022-06-14 06:00] VITALS: BP 130/60
[2022-06-14] MEDS: COMBIVENT RESPIMAT 100-20MCG INHALER 4GM INH SCH ×3 (07:18→20:34)
[2022-06-14] MEDS: DOCUSATE SODIUM 100MG CAPSULE PO SCH ×2 (07:48→20:45)
[2022-06-14] MEDS: oxyCODONE 5MG TAB PO SCH ×2 (08:00→12:00)
[2022-06-14 08:36] VITALS: BP 114/57
[2022-06-14] MEDS: ENOXAPARIN 30MG/0.3ML SYRINGE (J1650 PER 10MG) SC SCH (08:38)
[2022-06-14] MEDS: **hydrALAZINE** 50 MG TAB PO SCH ×3 (08:38→21:05)
[2022-06-14] MEDS: MAGNESIUM OXIDE 400MG TAB (MAG-OX) PO SCH ×2 (08:39→21:04)
[2022-06-14] MEDS: FERROUS GLUCONATE 324 MG TAB PO SCH (08:39)
[2022-06-14] MEDS: guaiFENesin ER 600 MG TAB PO SCH ×2 (08:39→21:05)
[2022-06-14] MEDS: FOLIC ACID 1MG TAB PO SCH (08:39)
[2022-06-14] MEDS: MELOXICAM (MOBIC) 7.5 MG TAB PO SCH (08:40)
[2022-06-14] MEDS: ACETAMINOPHEN 500 MG TAB PO SCH ×3 (08:40→21:05)
[2022-06-14] MEDS: SUCRALFATE 1 GM TAB PO SCH ×4 (08:41→21:04)
[2022-06-14] MEDS: VITAMIN B COMPLEX/VIT C CAP PO SCH (08:41)
[2022-06-14] MEDS: LACTOBACILLUS ACIDOPHILUS CAP (BACID) PO SCH ×2 (08:41→17:32)
[2022-06-14] MEDS: ASPIRIN 81MG ENTERIC TABLET PO SCH (08:41)
[2022-06-14] MEDS: GABAPENTIN 100 MG CAP PO SCH ×3 (08:42→21:04)
[2022-06-14] MEDS: QUINAPRIL 20 MG TAB PO SCH (08:42)
[2022-06-14] MEDS: OMEPRAZOLE 20MG CAP PO SCH (08:42)
[2022-06-14] MEDS: REMEDY PHYTOPLEX Z-GUARD PASTE 113GM TUBE (FROM STOREROOM PRODUCT) TOP SCH ×3 (08:43→21:05)
[2022-06-14] MEDS: DIMETHICONE 2% OINTMENT(VANICREAM) 70GM TUBE TOP SCH ×2 (08:44→21:06)
[2022-06-14 13:34] LABS: BASO % 0.1 % (0.0-1.0); EOS # 0.1 10^3/uL (0.0-0.5); EOS % 1.6 % (0.0-3.0); HEMATOCRIT 36.7 % (36.0-47.0); HEMOGLOBIN 11.6 g/dl (12.0-15.5); LYMPH # 0.4 10^3/uL (1.5-5.0); LYMPH % 5.1 % (24.0-44.0); MEAN CORPUSCULAR HEMOGLOBIN 31.3 pg (27.0-33.0); MEAN CORPUSCULAR HGB CONC 31.6 g/dl (32.0-36.5); MEAN CORPUSCULAR VOLUME 98.9 fl (80.0-96.0); MONO # 0.3 10^3/uL (0.0-0.8); MONO % 3.7 % (2.0-8.0); NEUTROPHILS # 7.6 10^3/uL (1.5-8.5); NEUTROPHILS % 88.9 % (36.0-66.0); PLATELET COUNT, AUTOMATED 238 10^3/uL (150-450); RED BLOOD COUNT 3.71 10^6/uL (4.00-5.40); WHITE BLOOD COUNT 8.6 10^3/uL (4.0-10.0)
[2022-06-14] MEDS ORDERED: TRAZ-252 PO (13:48)
[2022-06-14] MEDS ORDERED: MELO15TA28 PO (13:48)
[2022-06-14] MEDS ORDERED: ASPI-161 PO (13:48)
[2022-06-14] MEDS ORDERED: GABA-1171 PO (13:48)
[2022-06-14] MEDS ORDERED: SYNT50TA PO (13:48)
[2022-06-14] MEDS ORDERED: ATOR1TAB21 PO (13:48)
[2022-06-14] MEDS ORDERED: QUIN20TA48 PO (13:48)
[2022-06-14] MEDS ORDERED: MAGN400T2 PO (13:48)
[2022-06-14] MEDS ORDERED: OMEP40CA5 PO (13:48)
[2022-06-14] MEDS ORDERED: HYDR50TA PO (13:48)
[2022-06-14 14:00] VITALS: BP 152/70
[2022-06-14 14:01] LABS: BLOOD UREA NITROGEN 20 MG/DL (9-23); CALCIUM LEVEL 8.1 MG/DL (8.3-10.6); CARBON DIOXIDE LEVEL 22 MMOL/L (20-31); CHLORIDE LEVEL 95 MMOL/L (98-107); CREATININE FOR GFR 0.54 MG/DL (0.55-1.30); GLOMERULAR FILTRATION RATE > 60.0 (>32); GLUCOSE, FASTING 92 MG/DL (74-106); POTASSIUM SERUM 4.4 MMOL/L (3.5-5.1); SODIUM LEVEL 127 MMOL/L (136-145)
[2022-06-14] MEDS ORDERED: NS 1,000 ML IV SCH (14:20)
[2022-06-14 20:00] VITALS: BP 146/74
[2022-06-14] MEDS: SENNA 8.6 MG TAB (SENOKOT) PO SCH (20:45)
[2022-06-14] MEDS: ATORVASTATIN 20 MG TAB PO SCH (21:04)
[2022-06-14] MEDS: traZODone 25MG PER 1/2 TABLET PO SCH (21:04)
[2022-06-15] MEDS: LEVOTHYROXINE 50MCG TABLET (0.05MG) PO SCH (05:37)
[2022-06-15 06:00] VITALS: BP 140/56
[2022-06-15] MEDS: COMBIVENT RESPIMAT 100-20MCG INHALER 4GM INH SCH (07:27)
[2022-06-15] MEDS: oxyCODONE 5MG TAB PO SCH (08:00)
[2022-06-15 08:02] LABS: BLOOD UREA NITROGEN 15 MG/DL (9-23); CALCIUM LEVEL 7.8 MG/DL (8.3-10.6); CARBON DIOXIDE LEVEL 25 MMOL/L (20-31); CHLORIDE LEVEL 98 MMOL/L (98-107); GLOMERULAR FILTRATION RATE > 60.0 (>32); GLUCOSE, FASTING 82 MG/DL (74-106); SODIUM LEVEL 129 MMOL/L (136-145)
[2022-06-15] MEDS: DOCUSATE SODIUM 100MG CAPSULE PO SCH (09:00)
[2022-06-15] MEDS: ENOXAPARIN 30MG/0.3ML SYRINGE (J1650 PER 10MG) SC SCH (09:36)
[2022-06-15] MEDS: LACTOBACILLUS ACIDOPHILUS CAP (BACID) PO SCH (09:37)
[2022-06-15] MEDS: ASPIRIN 81MG ENTERIC TABLET PO SCH (09:37)
[2022-06-15] MEDS: GABAPENTIN 100 MG CAP PO SCH (09:37)
[2022-06-15] MEDS: SUCRALFATE 1 GM TAB PO SCH (09:37)
[2022-06-15] MEDS: OMEPRAZOLE 20MG CAP PO SCH (09:37)
[2022-06-15] MEDS: VITAMIN B COMPLEX/VIT C CAP PO SCH (09:37)
[2022-06-15] MEDS: MELOXICAM (MOBIC) 7.5 MG TAB PO SCH (09:37)
[2022-06-15] MEDS: FERROUS GLUCONATE 324 MG TAB PO SCH (09:38)
[2022-06-15] MEDS: FOLIC ACID 1MG TAB PO SCH (09:38)
[2022-06-15] MEDS: ACETAMINOPHEN 500 MG TAB PO SCH (09:38)
[2022-06-15] MEDS: guaiFENesin ER 600 MG TAB PO SCH (09:38)
[2022-06-15] MEDS: MAGNESIUM OXIDE 400MG TAB (MAG-OX) PO SCH (09:39)
[2022-06-15] MEDS: QUINAPRIL 20 MG TAB PO SCH (09:41)
[2022-06-15 09:42] VITALS: BP 150/68
[2022-06-15] MEDS: REMEDY PHYTOPLEX Z-GUARD PASTE 113GM TUBE (FROM STOREROOM PRODUCT) TOP SCH (09:42)
[2022-06-15] MEDS: **hydrALAZINE** 50 MG TAB PO SCH (09:42)
[2022-06-15] MEDS: DIMETHICONE 2% OINTMENT(VANICREAM) 70GM TUBE TOP SCH (09:43)
[2022-06-15] MEDS ORDERED: SODI1TAB12 PO (10:31)
== END 2022-06-15 11:30 | disposition home health service (06) | DRG 552 ==
LOC: M PM&R 15:05
PROVIDERS: ADMIT Physical Medicine & Rehabilitation; ATTEND Physical Medicine & Rehabilitation
PROC: 30233N1 Transfusion of Nonautologous Red Blood Cells into Peripheral Vein, Percutaneous Approach (ICD-10-PCS; principal; 2022-06-06)
DX: M47.814 Spondylosis without myelopathy or radiculopathy, thoracic region (principal); M48.56XA Collapsed vertebra, not elsewhere classified, lumbar region, initial encounter for fracture; I50.32 Chronic diastolic (congestive) heart failure; E87.1 Hypo-osmolality and hyponatremia; R26.89 Other abnormalities of gait and mobility; D63.8 Anemia in other chronic diseases classified elsewhere; I11.0 Hypertensive heart disease with heart failure; E03.9 Hypothyroidism, unspecified; M06.9 Rheumatoid arthritis, unspecified; R05.3 Chronic cough; F03.90 Unspecified dementia, unspecified severity, without behavioral disturbance, psychotic disturbance, mood disturbance, and anxiety; M81.0 Age-related osteoporosis without current pathological fracture; L89.159 Pressure ulcer of sacral region, unspecified stage; Z99.3 Dependence on wheelchair; Z86.73 Personal history of transient ischemic attack (TIA), and cerebral infarction without residual deficits; R53.1 Weakness; E55.9 Vitamin D deficiency, unspecified; D50.9 Iron deficiency anemia, unspecified; F41.8 Other specified anxiety disorders; K21.9 Gastro-esophageal reflux disease without esophagitis; I73.9 Peripheral vascular disease, unspecified; Z74.09 Other reduced mobility; Z74.1 Need for assistance with personal care; Z96.652 Presence of left artificial knee joint; Z96.643 Presence of artificial hip joint, bilateral; Z87.442 Personal history of urinary calculi; Z79.82 Long term (current) use of aspirin; Z79.899 Other long term (current) drug therapy; Z79.890 Hormone replacement therapy; Z79.1 Long term (current) use of non-steroidal anti-inflammatories (NSAID); Z88.1 Allergy status to other antibiotic agents; Z88.2 Allergy status to sulfonamides

== ENCOUNTER 2022-06-20 17:55 | Inpatient (IN) | payer MEDICARE, BC ==
[~2022-06-20] VITALS: Ht 152.4 cm; Wt 44.5 kg
[~2022-06-20 17:55] MED LIST changes: +HYDR50TA PO; +MAGN400T2 PO; +SODI1TAB12 PO
[2022-06-20 18:50] LABS: BASO % 0.2 % (0.0-1.0); EOS # 0.1 10^3/uL (0.0-0.5); EOS % 1.9 % (0.0-3.0); HEMATOCRIT 31.7 % (36.0-47.0); HEMOGLOBIN 9.9 g/dl (12.0-15.5); LYMPH # 0.5 10^3/uL (1.5-5.0); LYMPH % 11.4 % (24.0-44.0); MEAN CORPUSCULAR HEMOGLOBIN 31.1 pg (27.0-33.0); MEAN CORPUSCULAR HGB CONC 31.2 g/dl (32.0-36.5); MEAN CORPUSCULAR VOLUME 99.7 fl (80.0-96.0); MONO # 0.1 10^3/uL (0.0-0.8); MONO % 1.5 % (2.0-8.0); NEUTROPHILS # 3.9 10^3/uL (1.5-8.5); NEUTROPHILS % 84.6 % (36.0-66.0); PLATELET COUNT, AUTOMATED 245 10^3/uL (150-450); RED BLOOD COUNT 3.18 10^6/uL (4.00-5.40); WHITE BLOOD COUNT 4.7 10^3/uL (4.0-10.0)
[2022-06-20 19:00] LABS: INR 1.17; PROTHROMBIN TIME 15.1 SECONDS (12.5-14.5)
[2022-06-20 19:01] LABS: PARTIAL THROMBOPLASTIN TIME 34.9 SECONDS (24.8-34.2)
[2022-06-20 19:09] LABS: LIPASE 15 U/L (12-53)
[2022-06-20 19:14] LABS: ALBUMIN 2.2 G/DL (3.2-5.2); ALKALINE PHOSPHATASE 99 U/L (46-116); ALT/SGPT 12 U/L (7.0-40); AST/SGOT 25 U/L (<34); BILIRUBIN,DIRECT 0.3 MG/DL (<0.4); BILIRUBIN,TOTAL 0.8 MG/DL (0.3-1.2); BLOOD UREA NITROGEN 19 MG/DL (9-23); CALCIUM LEVEL 8.5 MG/DL (8.3-10.6); CARBON DIOXIDE LEVEL 29 MMOL/L (20-31); CHLORIDE LEVEL 99 MMOL/L (98-107); CREATININE FOR GFR 0.56 MG/DL (0.55-1.30); GLOMERULAR FILTRATION RATE > 60.0 (>32); GLUCOSE, FASTING 100 MG/DL (74-106); POTASSIUM SERUM 4.5 MMOL/L (3.5-5.1); SODIUM LEVEL 133 MMOL/L (136-145); TOTAL PROTEIN 4.9 G/DL (5.7-8.2)
[2022-06-20] MEDS ORDERED: PANTOPRAZOLE 40MG VIAL IV ONE (20:10)
[2022-06-20 21:19] LABS: RSV AMPLIFICATION NEGATIVE (NEGATIVE)
[2022-06-20] MEDS ORDERED: SODI1TAB12 PO (22:10)
[2022-06-20] MEDS ORDERED: HOME MED LIST COMPLETE! XX SCH (22:10)
[2022-06-20] MEDS ORDERED: VITA200012 PO (22:10)
[2022-06-20 23:05] VITALS: BP 144/90
[2022-06-20] MEDS ORDERED: traZODone 50 MG TAB PO PRN (23:10)
[2022-06-21] MEDS: **hydrALAZINE** 50 MG TAB PO SCH ×4 (00:44→20:13)
[2022-06-21] MEDS: NS 1,000 ML IV SCH ×2 (00:44→11:30)
[2022-06-21 04:16] VITALS: BP 142/65
[2022-06-21 05:50] LABS: HEMATOCRIT 27.2 % (36.0-47.0); HEMOGLOBIN 8.5 g/dl (12.0-15.5); MEAN CORPUSCULAR HEMOGLOBIN 30.8 pg (27.0-33.0); MEAN CORPUSCULAR HGB CONC 31.3 g/dl (32.0-36.5); MEAN CORPUSCULAR VOLUME 98.6 fl (80.0-96.0); PLATELET COUNT, AUTOMATED 203 10^3/uL (150-450); RED BLOOD COUNT 2.76 10^6/uL (4.00-5.40); WHITE BLOOD COUNT 3.3 10^3/uL (4.0-10.0)
[2022-06-21] MEDS: LEVOTHYROXINE 50MCG TABLET (0.05MG) PO SCH (06:07)
[2022-06-21 06:09] LABS: ALBUMIN 1.9 G/DL (3.2-5.2); ALKALINE PHOSPHATASE 85 U/L (46-116); ALT/SGPT 9 U/L (7.0-40); AST/SGOT 18 U/L (<34); BILIRUBIN,TOTAL 0.7 MG/DL (0.3-1.2); BLOOD UREA NITROGEN 16 MG/DL (9-23); CALCIUM LEVEL 7.9 MG/DL (8.3-10.6); CARBON DIOXIDE LEVEL 27 MMOL/L (20-31); CHLORIDE LEVEL 100 MMOL/L (98-107); CREATININE FOR GFR 0.47 MG/DL (0.55-1.30); GLOMERULAR FILTRATION RATE > 60.0 (>32); GLUCOSE, FASTING 105 MG/DL (74-106); MAGNESIUM LEVEL 1.8 MG/DL (1.8-2.4); SODIUM LEVEL 133 MMOL/L (136-145); TOTAL PROTEIN 4.3 G/DL (5.7-8.2)
[2022-06-21 08:07] VITALS: BP 138/65
[2022-06-21] MEDS: QUINAPRIL 20 MG TAB PO SCH (08:51)
[2022-06-21] MEDS: PANTOPRAZOLE 40MG VIAL IV SCH ×2 (08:51→20:12)
[2022-06-21] MEDS: GABAPENTIN 100 MG CAP PO SCH ×3 (08:52→20:12)
[2022-06-21] MEDS ORDERED: MIRALAX *UNIT DOSE* 17GM PACKET PO SCH (09:00)
[2022-06-21] MEDS ORDERED: ASPIRIN 81MG ENTERIC TABLET PO SCH (09:00)
[2022-06-21 11:54] VITALS: BP 150/79
[2022-06-21 12:00] LABS: FOLATE 21.94 NG/ML (>5.4)
[2022-06-21] MEDS ORDERED: PREPARATION H OINTMENT (HEMORRHOID) PR PRN (13:30)
[2022-06-21 16:00] VITALS: BP 138/68
[2022-06-21] MEDS ORDERED: GOLYTELY SOLN 4000 ML BTL PO ONE (18:00)
[2022-06-21 20:00] VITALS: BP 143/69
[2022-06-21] MEDS: ATORVASTATIN 20 MG TAB PO SCH (20:12)
[2022-06-22] VITALS: BP 126/60
[2022-06-22 04:00] VITALS: BP 134/66
[2022-06-22] MEDS ORDERED: GOLYTELY SOLN 4000 ML BTL PO ONE (05:00)
[2022-06-22 05:35] LABS: BASO % 0.2 % (0.0-1.0); EOS # 0.1 10^3/uL (0.0-0.5); EOS % 1.1 % (0.0-3.0); HEMATOCRIT 27.9 % (36.0-47.0); HEMOGLOBIN 8.8 g/dl (12.0-15.5); LYMPH # 0.6 10^3/uL (1.5-5.0); LYMPH % 13.2 % (24.0-44.0); MEAN CORPUSCULAR HEMOGLOBIN 31.2 pg (27.0-33.0); MEAN CORPUSCULAR HGB CONC 31.5 g/dl (32.0-36.5); MEAN CORPUSCULAR VOLUME 98.9 fl (80.0-96.0); MONO # 0.2 10^3/uL (0.0-0.8); MONO % 4.3 % (2.0-8.0); NEUTROPHILS # 3.6 10^3/uL (1.5-8.5); NEUTROPHILS % 80.5 % (36.0-66.0); PLATELET COUNT, AUTOMATED 178 10^3/uL (150-450); RED BLOOD COUNT 2.82 10^6/uL (4.00-5.40); WHITE BLOOD COUNT 4.4 10^3/uL (4.0-10.0)
[2022-06-22 06:03] LABS: BLOOD UREA NITROGEN 12 MG/DL (9-23); CALCIUM LEVEL 8.1 MG/DL (8.3-10.6); CARBON DIOXIDE LEVEL 27 MMOL/L (20-31); CHLORIDE LEVEL 101 MMOL/L (98-107); GLOMERULAR FILTRATION RATE > 60.0 (>32); GLUCOSE, FASTING 103 MG/DL (74-106); POTASSIUM SERUM 3.5 MMOL/L (3.5-5.1); SODIUM LEVEL 134 MMOL/L (136-145)
[2022-06-22] MEDS: LEVOTHYROXINE 50MCG TABLET (0.05MG) PO SCH (06:11)
[2022-06-22 08:02] VITALS: BP 143/67
[2022-06-22] MEDS: GABAPENTIN 100 MG CAP PO SCH ×3 (11:07→20:37)
[2022-06-22] MEDS: MIRALAX *UNIT DOSE* 17GM PACKET PO SCH ×2 (11:07→20:38)
[2022-06-22] MEDS: **hydrALAZINE** 50 MG TAB PO SCH ×3 (11:07→20:37)
[2022-06-22] MEDS: PANTOPRAZOLE 40MG VIAL IV SCH ×2 (11:08→20:38)
[2022-06-22] MEDS: QUINAPRIL 20 MG TAB PO SCH (11:08)
[2022-06-22] MEDS: FLEET ENEMA PR SCH ×2 (11:23→20:38)
[2022-06-22 11:55] VITALS: BP 148/69
[2022-06-22 15:57] VITALS: BP 139/72
[2022-06-22 18:19] LABS: HEMOGLOBIN 9.1 g/dl (12.0-15.5)
[2022-06-22 20:00] VITALS: BP 138/62
[2022-06-22] MEDS ORDERED: ACETAMINOPHEN TAB 650MG DOSE (2X325MG) PO PRN (20:25)
[2022-06-22] MEDS: ATORVASTATIN 20 MG TAB PO SCH (20:37)
[2022-06-23 04:00] VITALS: BP 145/67
[2022-06-23] MEDS: LEVOTHYROXINE 50MCG TABLET (0.05MG) PO SCH (05:23)
[2022-06-23 05:55] LABS: BASO % 0.3 % (0.0-1.0); EOS # 0.1 10^3/uL (0.0-0.5); EOS % 1.2 % (0.0-3.0); HEMATOCRIT 24.5 % (36.0-47.0); HEMOGLOBIN 7.7 g/dl (12.0-15.5); LYMPH # 0.5 10^3/uL (1.5-5.0); LYMPH % 6.8 % (24.0-44.0); MEAN CORPUSCULAR HEMOGLOBIN 31.2 pg (27.0-33.0); MEAN CORPUSCULAR HGB CONC 31.4 g/dl (32.0-36.5); MEAN CORPUSCULAR VOLUME 99.2 fl (80.0-96.0); MONO # 0.2 10^3/uL (0.0-0.8); MONO % 3.1 % (2.0-8.0); NEUTROPHILS # 5.9 10^3/uL (1.5-8.5); NEUTROPHILS % 87.3 % (36.0-66.0); PLATELET COUNT, AUTOMATED 142 10^3/uL (150-450); RED BLOOD COUNT 2.47 10^6/uL (4.00-5.40); WHITE BLOOD COUNT 6.7 10^3/uL (4.0-10.0)
[2022-06-23 06:14] LABS: BLOOD UREA NITROGEN 16 MG/DL (9-23); CALCIUM LEVEL 7.9 MG/DL (8.3-10.6); CARBON DIOXIDE LEVEL 28 MMOL/L (20-31); CHLORIDE LEVEL 103 MMOL/L (98-107); CREATININE FOR GFR 0.52 MG/DL (0.55-1.30); GLOMERULAR FILTRATION RATE > 60.0 (>32); GLUCOSE, FASTING 95 MG/DL (74-106); POTASSIUM SERUM 3.1 MMOL/L (3.5-5.1); SODIUM LEVEL 137 MMOL/L (136-145)
[2022-06-23 07:29] VITALS: BP 136/65
[2022-06-23] MEDS ORDERED: METHOTREXATE 2.5MG TAB PO SCH (09:00)
[2022-06-23] MEDS: MIRALAX *UNIT DOSE* 17GM PACKET PO SCH ×2 (09:10→20:57)
[2022-06-23] MEDS: PANTOPRAZOLE 40MG VIAL IV SCH ×2 (09:10→20:15)
[2022-06-23] MEDS: **hydrALAZINE** 50 MG TAB PO SCH ×3 (09:13→20:14)
[2022-06-23] MEDS: QUINAPRIL 20 MG TAB PO SCH (09:13)
[2022-06-23] MEDS: GABAPENTIN 100 MG CAP PO SCH ×3 (09:13→20:14)
[2022-06-23] MEDS: FLEET ENEMA PR SCH ×2 (10:19→21:00)
[2022-06-23] MEDS ORDERED: POTASSIUM CHLORIDE 10% LIQ 20MEQ/15ML UDC PO ONE (10:25)
[2022-06-23] MEDS: KCL 10MEQ/100ML SWI (KRUN) 10 MEQ in IV 1 EA IV SCH ×2 (12:10→13:33)
[2022-06-23 15:35] VITALS: BP 112/73
[2022-06-23 19:43] LABS: HEMATOCRIT 28.2 % (36.0-47.0); HEMOGLOBIN 9.1 g/dl (12.0-15.5)
[2022-06-23 20:12] VITALS: BP 148/75
[2022-06-23] MEDS: ATORVASTATIN 20 MG TAB PO SCH (20:14)
[2022-06-23 20:19] LABS: BLOOD UREA NITROGEN 18 MG/DL (9-23); CALCIUM LEVEL 8.3 MG/DL (8.3-10.6); CARBON DIOXIDE LEVEL 28 MMOL/L (20-31); CHLORIDE LEVEL 103 MMOL/L (98-107); CREATININE FOR GFR 0.52 MG/DL (0.55-1.30); GLOMERULAR FILTRATION RATE > 60.0 (>32); GLUCOSE, FASTING 115 MG/DL (74-106); POTASSIUM SERUM 4.3 MMOL/L (3.5-5.1); SODIUM LEVEL 136 MMOL/L (136-145)
[2022-06-24] VITALS (14 sets, daily range): BP systolic 110–188; BP diastolic 65–90
[2022-06-24] MEDS: LEVOTHYROXINE 50MCG TABLET (0.05MG) PO SCH (06:51)
[2022-06-24 07:01] LABS: BASO % 0.2 % (0.0-1.0); EOS # 0.1 10^3/uL (0.0-0.5); HEMATOCRIT 21.4 % (36.0-47.0); LYMPH # 0.6 10^3/uL (1.5-5.0); LYMPH % 10.6 % (24.0-44.0); MEAN CORPUSCULAR HGB CONC 30.8 g/dl (32.0-36.5); MEAN CORPUSCULAR VOLUME 100.5 fl (80.0-96.0); MONO # 0.4 10^3/uL (0.0-0.8); MONO % 6.4 % (2.0-8.0); NEUTROPHILS # 4.4 10^3/uL (1.5-8.5); NEUTROPHILS % 79.9 % (36.0-66.0); RED BLOOD COUNT 2.13 10^6/uL (4.00-5.40); WHITE BLOOD COUNT 5.5 10^3/uL (4.0-10.0)
[2022-06-24 07:12] LABS: HEMOGLOBIN 6.6 g/dl (12.0-15.5); PLATELET COUNT, AUTOMATED 117 10^3/uL (150-450)
[2022-06-24 07:24] LABS: BLOOD UREA NITROGEN 17 MG/DL (9-23); CALCIUM LEVEL 6.8 MG/DL (8.3-10.6); CARBON DIOXIDE LEVEL 28 MMOL/L (20-31); CHLORIDE LEVEL 108 MMOL/L (98-107); CREATININE FOR GFR 0.54 MG/DL (0.55-1.30); GLOMERULAR FILTRATION RATE > 60.0 (>32); GLUCOSE, FASTING 100 MG/DL (74-106); POTASSIUM SERUM 4.1 MMOL/L (3.5-5.1); SODIUM LEVEL 138 MMOL/L (136-145)
[2022-06-24] MEDS: PANTOPRAZOLE 40MG VIAL IV SCH ×2 (09:37→22:14)
[2022-06-24] MEDS: QUINAPRIL 20 MG TAB PO SCH (09:37)
[2022-06-24] MEDS: MIRALAX *UNIT DOSE* 17GM PACKET PO SCH ×2 (09:37→21:00)
[2022-06-24] MEDS: **hydrALAZINE** 50 MG TAB PO SCH ×3 (09:38→21:00)
[2022-06-24] MEDS: GABAPENTIN 100 MG CAP PO SCH ×3 (09:38→21:00)
[2022-06-24] MEDS ORDERED: FUROSEMIDE 40MG/4ML VIAL IV ONE (17:15)
[2022-06-24] MEDS ORDERED: METOPROLOL 5 MG/5 ML VIAL IV STA (18:08)
[2022-06-24] MEDS ORDERED: diphenhydrAMINE 50MG/ML VIAL IV STA (18:09)
[2022-06-24 18:50] LABS: BASO % 0.1 % (0.0-1.0); EOS % 0.2 % (0.0-3.0); HEMATOCRIT 41.1 % (36.0-47.0); LYMPH # 0.3 10^3/uL (1.5-5.0); LYMPH % 2.9 % (24.0-44.0); MEAN CORPUSCULAR HEMOGLOBIN 29.7 pg (27.0-33.0); MEAN CORPUSCULAR HGB CONC 32.4 g/dl (32.0-36.5); MEAN CORPUSCULAR VOLUME 91.7 fl (80.0-96.0); MONO # 0.1 10^3/uL (0.0-0.8); MONO % 0.9 % (2.0-8.0); NEUTROPHILS # 8.1 10^3/uL (1.5-8.5); NEUTROPHILS % 95.3 % (36.0-66.0); PLATELET COUNT, AUTOMATED 154 10^3/uL (150-450); RED BLOOD COUNT 4.48 10^6/uL (4.00-5.40); WHITE BLOOD COUNT 8.6 10^3/uL (4.0-10.0)
[2022-06-24 18:51] LABS: HEMOGLOBIN 13.3 g/dl (12.0-15.5)
[2022-06-24 19:08] LABS: BLOOD UREA NITROGEN 12 MG/DL (9-23); CALCIUM LEVEL 8.7 MG/DL (8.3-10.6); CARBON DIOXIDE LEVEL 26 MMOL/L (20-31); CHLORIDE LEVEL 99 MMOL/L (98-107); CREATININE FOR GFR 0.48 MG/DL (0.55-1.30); GLOMERULAR FILTRATION RATE > 60.0 (>32); GLUCOSE, FASTING 118 MG/DL (74-106); SODIUM LEVEL 133 MMOL/L (136-145)
[2022-06-24 19:59] LABS: BILIRUBIN,TOTAL 2.3 MG/DL (0.3-1.2)
[2022-06-24 20:13] LABS: INR 1.19; PROTHROMBIN TIME 15.4 SECONDS (12.5-14.5)
[2022-06-24] MEDS: ATORVASTATIN 20 MG TAB PO SCH (21:00)
[2022-06-25] VITALS (7 sets, daily range): BP systolic 128–164; BP diastolic 64–84
[2022-06-25] MEDS ORDERED: hydrALAZINE 20MG/ML 1ML VIAL IV ONE (04:35)
[2022-06-25] MEDS: LEVOTHYROXINE 50MCG TABLET (0.05MG) PO SCH (06:00)
[2022-06-25 06:07] LABS: BASO % 0.2 % (0.0-1.0); EOS # 0.1 10^3/uL (0.0-0.5); EOS % 0.9 % (0.0-3.0); LYMPH # 0.5 10^3/uL (1.5-5.0); LYMPH % 8.7 % (24.0-44.0); MEAN CORPUSCULAR HEMOGLOBIN 30.2 pg (27.0-33.0); MEAN CORPUSCULAR HGB CONC 33.3 g/dl (32.0-36.5); MEAN CORPUSCULAR VOLUME 90.6 fl (80.0-96.0); MONO # 0.1 10^3/uL (0.0-0.8); MONO % 1.6 % (2.0-8.0); NEUTROPHILS # 5.1 10^3/uL (1.5-8.5); NEUTROPHILS % 88.1 % (36.0-66.0); PLATELET COUNT, AUTOMATED 112 10^3/uL (150-450); RED BLOOD COUNT 3.31 10^6/uL (4.00-5.40); WHITE BLOOD COUNT 5.7 10^3/uL (4.0-10.0)
[2022-06-25 06:42] LABS: BLOOD UREA NITROGEN 17 MG/DL (9-23); CALCIUM LEVEL 7.8 MG/DL (8.3-10.6); CARBON DIOXIDE LEVEL 30 MMOL/L (20-31); CHLORIDE LEVEL 100 MMOL/L (98-107); GLOMERULAR FILTRATION RATE > 60.0 (>32); GLUCOSE, FASTING 90 MG/DL (74-106); SODIUM LEVEL 136 MMOL/L (136-145)
[2022-06-25] MEDS ORDERED: KCL 10MEQ/100ML SWI (KRUN) 10 MEQ in IV 1 EA IV ONE (07:30)
[2022-06-25] MEDS ORDERED: POTASSIUM CHLORIDE 10MEQ SR TABLET PO ONE (08:00)
[2022-06-25] MEDS: QUINAPRIL 20 MG TAB PO SCH ×2 (09:00→09:09)
[2022-06-25] MEDS: GABAPENTIN 100 MG CAP PO SCH ×4 (09:00→20:35)
[2022-06-25] MEDS: **hydrALAZINE** 50 MG TAB PO SCH ×4 (09:00→20:35)
[2022-06-25] MEDS: PANTOPRAZOLE 40MG VIAL IV SCH ×2 (09:09→20:35)
[2022-06-25] MEDS: MIRALAX *UNIT DOSE* 17GM PACKET PO SCH ×2 (09:09→20:34)
[2022-06-25] MEDS: KCL 10MEQ/100ML SWI (KRUN) 10 MEQ in IV 1 EA IV SCH ×4 (09:12→12:34)
[2022-06-25] MEDS ORDERED: LIDOCAINE 2% 100MG/5ML SDV (FOR ANES.) As Ordered ONE (13:33)
[2022-06-25] MEDS ORDERED: propofoL 200 MG/20 ML VIAL As Ordered ONE (13:33)
[2022-06-25] MEDS ORDERED: fentaNYL 100 MCG/2 ML INJECTION As Ordered ONE (13:33)
[2022-06-25] MEDS ORDERED: PHENYLephrine 500MCG 5ML (100MCG/ML) SYRINGE As Ordered ONE (14:15)
[2022-06-25] MEDS ORDERED: LR 1,000 ML IV SCH (15:05)
[2022-06-25] MEDS ORDERED: ONDANSETRON 4MG 2ML VIAL IV PRN (15:05)
[2022-06-25] MEDS: ATORVASTATIN 20 MG TAB PO SCH (20:35)
[2022-06-26] VITALS (9 sets, daily range): BP systolic 124–170; BP diastolic 60–89
[2022-06-26] MEDS ORDERED: hydrALAZINE 20MG/ML 1ML VIAL IV ONE ×2 (00:25→04:30)
[2022-06-26] MEDS: LEVOTHYROXINE 50MCG TABLET (0.05MG) PO SCH (05:18)
[2022-06-26 06:01] LABS: BASO % 0.2 % (0.0-1.0); EOS # 0.1 10^3/uL (0.0-0.5); EOS % 1.4 % (0.0-3.0); HEMATOCRIT 32.6 % (36.0-47.0); HEMOGLOBIN 10.5 g/dl (12.0-15.5); LYMPH # 0.4 10^3/uL (1.5-5.0); LYMPH % 7.5 % (24.0-44.0); MEAN CORPUSCULAR HEMOGLOBIN 29.7 pg (27.0-33.0); MEAN CORPUSCULAR HGB CONC 32.2 g/dl (32.0-36.5); MEAN CORPUSCULAR VOLUME 92.1 fl (80.0-96.0); MONO % 0.7 % (2.0-8.0); NEUTROPHILS # 5.1 10^3/uL (1.5-8.5); NEUTROPHILS % 89.8 % (36.0-66.0); PLATELET COUNT, AUTOMATED 138 10^3/uL (150-450); RED BLOOD COUNT 3.54 10^6/uL (4.00-5.40); WHITE BLOOD COUNT 5.7 10^3/uL (4.0-10.0)
[2022-06-26 06:33] LABS: BLOOD UREA NITROGEN 19 MG/DL (9-23); CALCIUM LEVEL 8.2 MG/DL (8.3-10.6); CARBON DIOXIDE LEVEL 27 MMOL/L (20-31); CHLORIDE LEVEL 99 MMOL/L (98-107); CREATININE FOR GFR 0.51 MG/DL (0.55-1.30); GLOMERULAR FILTRATION RATE > 60.0 (>32); GLUCOSE, FASTING 79 MG/DL (74-106); POTASSIUM SERUM 3.7 MMOL/L (3.5-5.1); SODIUM LEVEL 134 MMOL/L (136-145)
[2022-06-26 08:06] LABS: MAGNESIUM LEVEL 1.6 MG/DL (1.8-2.4)
[2022-06-26] MEDS ORDERED: METOPROLOL TART 12.5 MG PER 1/2 TAB PO SCH (09:00)
[2022-06-26] MEDS: GABAPENTIN 100 MG CAP PO SCH ×3 (09:01→20:14)
[2022-06-26] MEDS: **hydrALAZINE** 50 MG TAB PO SCH (09:01)
[2022-06-26] MEDS: PANTOPRAZOLE 40MG VIAL IV SCH (09:01)
[2022-06-26] MEDS: MIRALAX *UNIT DOSE* 17GM PACKET PO SCH ×2 (09:01→20:13)
[2022-06-26] MEDS: QUINAPRIL 20 MG TAB PO SCH (09:01)
[2022-06-26] MEDS: MAG SULF 1GM/100ML (MAG RUN) 1 GM in IV 1 EA IV SCH ×3 (09:43→13:16)
[2022-06-26] MEDS ORDERED: POTASSIUM CHLORIDE 10MEQ SR TABLET PO ONE (10:00)
[2022-06-26] MEDS: ATORVASTATIN 20 MG TAB PO SCH (20:14)
[2022-06-26] MEDS: ANUSOL HC CREAM 30GM TOP SCH (20:15)
[2022-06-26] MEDS: METOPROLOL TART 25 MG TABLET PO SCH (20:15)
[2022-06-27] VITALS (7 sets, daily range): BP systolic 148–168; BP diastolic 68–77
[2022-06-27] MEDS: LEVOTHYROXINE 50MCG TABLET (0.05MG) PO SCH (05:05)
[2022-06-27 05:54] LABS: HEMATOCRIT 36.2 % (36.0-47.0); HEMOGLOBIN 11.5 g/dl (12.0-15.5); MEAN CORPUSCULAR HEMOGLOBIN 29.9 pg (27.0-33.0); MEAN CORPUSCULAR HGB CONC 31.8 g/dl (32.0-36.5); PLATELET COUNT, AUTOMATED 144 10^3/uL (150-450); RED BLOOD COUNT 3.85 10^6/uL (4.00-5.40); WHITE BLOOD COUNT 4.3 10^3/uL (4.0-10.0)
[2022-06-27 06:30] LABS: ANISOCYTOSIS 2+; ATYPICAL LYMPH 1 % (0-5); EOSINOPHILS 2 % (0-3); LYMPHOCYTES 15 % (16-44); MONOCYTES 4 % (0-5); NEUTROPHILS 78 % (28-66); OVALOCYTES 1+; PLATELET ESTIMATE NORMAL (NORMAL)
[2022-06-27 06:31] LABS: BURR CELLS 1+
[2022-06-27 07:50] LABS: BLOOD UREA NITROGEN 8 MG/DL (9-23); CALCIUM LEVEL 7.7 MG/DL (8.3-10.6); CARBON DIOXIDE LEVEL 26 MMOL/L (20-31); CHLORIDE LEVEL 100 MMOL/L (98-107); CREATININE FOR GFR 0.45 MG/DL (0.55-1.30); GLOMERULAR FILTRATION RATE > 60.0 (>32); GLUCOSE, FASTING 82 MG/DL (74-106); MAGNESIUM LEVEL 1.9 MG/DL (1.8-2.4); POTASSIUM SERUM 4.3 MMOL/L (3.5-5.1); SODIUM LEVEL 128 MMOL/L (136-145)
[2022-06-27] MEDS: MIRALAX *UNIT DOSE* 17GM PACKET PO SCH ×2 (08:59→21:36)
[2022-06-27] MEDS: METOPROLOL TART 25 MG TABLET PO SCH ×2 (09:00→21:40)
[2022-06-27] MEDS: ASPIRIN 81MG ENTERIC TABLET PO SCH (09:00)
[2022-06-27] MEDS: GABAPENTIN 100 MG CAP PO SCH ×3 (09:00→21:40)
[2022-06-27] MEDS: PANTOPRAZOLE 40MG TAB (PROTONIX) PO SCH (09:00)
[2022-06-27] MEDS: QUINAPRIL 20 MG TAB PO SCH (09:00)
[2022-06-27] MEDS: ANUSOL HC CREAM 30GM TOP SCH ×2 (09:01→21:41)
[2022-06-27] MEDS ORDERED: NS 1,000 ML IV SCH (11:05)
[2022-06-27 13:09] LABS: OSMOLALITY URINE 444 MOSM/KG (50-1400)
[2022-06-27 13:34] LABS: SODIUM,RANDOM URINE 47 MMOL/L
[2022-06-27] MEDS: ATORVASTATIN 20 MG TAB PO SCH (21:40)
[2022-06-28 04:08] VITALS: BP 149/72
[2022-06-28 06:22] LABS: EOS # 0.1 10^3/uL (0.0-0.5); EOS % 3.9 % (0.0-3.0); HEMATOCRIT 30.9 % (36.0-47.0); HEMOGLOBIN 9.9 g/dl (12.0-15.5); LYMPH # 0.5 10^3/uL (1.5-5.0); LYMPH % 16.5 % (24.0-44.0); MEAN CORPUSCULAR HEMOGLOBIN 29.9 pg (27.0-33.0); MEAN CORPUSCULAR VOLUME 93.4 fl (80.0-96.0); MONO # 0.1 10^3/uL (0.0-0.8); MONO % 3.5 % (2.0-8.0); NEUTROPHILS # 2.1 10^3/uL (1.5-8.5); PLATELET COUNT, AUTOMATED 132 10^3/uL (150-450); RED BLOOD COUNT 3.31 10^6/uL (4.00-5.40); WHITE BLOOD COUNT 2.8 10^3/uL (4.0-10.0)
[2022-06-28 06:49] LABS: BLOOD UREA NITROGEN 12 MG/DL (9-23); CALCIUM LEVEL 8.1 MG/DL (8.3-10.6); CARBON DIOXIDE LEVEL 29 MMOL/L (20-31); CHLORIDE LEVEL 99 MMOL/L (98-107); CREATININE FOR GFR 0.42 MG/DL (0.55-1.30); GLOMERULAR FILTRATION RATE > 60.0 (>32); GLUCOSE, FASTING 89 MG/DL (74-106); POTASSIUM SERUM 3.6 MMOL/L (3.5-5.1); SODIUM LEVEL 133 MMOL/L (136-145)
[2022-06-28] MEDS: LEVOTHYROXINE 50MCG TABLET (0.05MG) PO SCH (06:55)
[2022-06-28 08:34] VITALS: BP 161/97
[2022-06-28] MEDS ORDERED: METO1TAB87 PO (09:38)
[2022-06-28] MEDS ORDERED: PROC1CRE5 TOP (09:38)
[2022-06-28] MEDS: QUINAPRIL 20 MG TAB PO SCH (09:51)
[2022-06-28] MEDS: ASPIRIN 81MG ENTERIC TABLET PO SCH (09:52)
[2022-06-28] MEDS: PANTOPRAZOLE 40MG TAB (PROTONIX) PO SCH (09:52)
[2022-06-28] MEDS: GABAPENTIN 100 MG CAP PO SCH (09:52)
[2022-06-28] MEDS: METOPROLOL TART 25 MG TABLET PO SCH (09:52)
[2022-06-28] MEDS: ANUSOL HC CREAM 30GM TOP SCH (09:53)
[2022-06-28] MEDS: MIRALAX *UNIT DOSE* 17GM PACKET PO SCH (09:53)
[2022-06-28 11:40] VITALS: BP 158/72
[2022-06-28 11:44] VITALS: BP 158/72
[2022-06-28] MEDS ORDERED: **hydrALAZINE HCL** 25 MG TAB PO ONE (12:00)
[2022-06-28 12:11] VITALS: BP 158/72
[2022-06-28 13:06] VITALS: BP 142/78
[2022-06-28] MEDS ORDERED: HYDR-3910 PO (13:14)
== END 2022-06-28 14:00 | disposition home health service (06) | DRG 377 ==
LOC: M ED 17:55 → EDBD 17:55 → INTOOBSV 22:11 → M ED INP 22:11 → M PCU 23:04 → OBSVTOIN 06-22 17:43 → INTOOBSV 06-22 17:43 → M MS5PR 06-23 18:25 → OBSVTOIN 06-24 17:08 → M PCU 06-24 18:29
PROVIDERS: ADMIT Family Medicine; ATTEND Internal Medicine
PROC: 30233N1 Transfusion of Nonautologous Red Blood Cells into Peripheral Vein, Percutaneous Approach (ICD-10-PCS; 2022-06-24)
PROC: 0DBQ8ZX Excision of Anus, Via Natural or Artificial Opening Endoscopic, Diagnostic (ICD-10-PCS; 2022-06-25)
PROC: 0DB78ZX Excision of Stomach, Pylorus, Via Natural or Artificial Opening Endoscopic, Diagnostic (ICD-10-PCS; principal; 2022-06-25 11:45)
DX: K29.71 Gastritis, unspecified, with bleeding (principal); L89.154 Pressure ulcer of sacral region, stage 4; E87.1 Hypo-osmolality and hyponatremia; E46 Unspecified protein-calorie malnutrition; I10 Essential (primary) hypertension; M06.9 Rheumatoid arthritis, unspecified; E03.9 Hypothyroidism, unspecified; G47.00 Insomnia, unspecified; F03.90 Unspecified dementia, unspecified severity, without behavioral disturbance, psychotic disturbance, mood disturbance, and anxiety; Z66 Do not resuscitate; D63.8 Anemia in other chronic diseases classified elsewhere; E87.6 Hypokalemia; R50.84 Febrile nonhemolytic transfusion reaction; K44.9 Diaphragmatic hernia without obstruction or gangrene; K57.30 Diverticulosis of large intestine without perforation or abscess without bleeding; K64.8 Other hemorrhoids; E83.42 Hypomagnesemia; F41.9 Anxiety disorder, unspecified; F32.A Depression, unspecified; M48.00 Spinal stenosis, site unspecified; K64.4 Residual hemorrhoidal skin tags; R54 Age-related physical debility; Z99.3 Dependence on wheelchair; Z79.899 Other long term (current) drug therapy; Z86.73 Personal history of transient ischemic attack (TIA), and cerebral infarction without residual deficits; Z74.01 Bed confinement status; Z96.643 Presence of artificial hip joint, bilateral; Z87.442 Personal history of urinary calculi; Z79.82 Long term (current) use of aspirin; Z88.2 Allergy status to sulfonamides; Z79.890 Hormone replacement therapy; Z88.1 Allergy status to other antibiotic agents; Z96.652 Presence of left artificial knee joint